=== PATIENT | female | born 1935 | race Two or more races ===

== ENCOUNTER 2016-07-05 23:14 | Inpatient (IN) | payer OTHER, MEDICAID ==
--- NOTE | 2016-07-06 00:08 | EDPHY ---
H & P Stated Complaint: L sided face pain HPI/ROS: HPI CHIEF COMPLAINT: Left-sided facial pain sharp stabbing nerve related, noted to be hypoxic at triage HISTORY OF PRESENT ILLNESS: This patient very pleasant 81-year-old female she has significant past medical history for hypertension, diabetes, TIA, pulmonary embolism, coronary artery disease per her daughter at bedside, and presents emergency room after she arrived from [place] today. Patient drove with her daughter from home are as [place] to [facility] arrived this evening she has been having left-sided facial pain for the past week sharp stabbing in nature it is worse when she eats specifically when she bites down she gets sharp electrical pain. She was seen at a hospital in [place] for this prior to arriving [facility] and was placed on calcitriol tabs. she was told that it is a nerve related electrical shooting pain. She states she has been having this pain for week her daughter who works here in housekeeping decided to bring her to the emergency room tonight for evaluation. Was noted at triage her pulse ox was 77% on room air. She has been placed on 2 L nasal cannula this time. She has had a cough and recent bronchitis. Patient is not having left- sided facial pain at this time. Past Medical History: Hypertension, diabetes, TIA, pulmonary embolism, coronary artery disease, questionable trigeminal neuralgia Past Surgical History: Denies recent surgical history Social History: Lives in [place] just arrived in [place] Family History: Noncontributory ROS REVIEW OF SYSTEMS: A comprehensive 10 point review of systems is otherwise negative aside from elements mentioned in the history of present illness. Exam Constitutional appears well nontoxic, triage nursing summary reviewed, vital signs reviewed, awake/alert. Eyes normal conjunctivae and sclera, EOMI, PERRLA. HENT normal inspection, atraumatic, moist mucus membranes, no epistaxis, neck supple/ no meningismus, no raccoon eyes. Respiratory clear to auscultation bilaterally, normal breath sounds, no respiratory distress, no wheezing. Cardiovascular rate normal, regular rhythm, no murmur, no edema, distal pulses normal. Gastrointestinal soft, non-tender, no rebound, no guarding, normal bowel sounds, no distension, no pulsatile mass. Genitourinary no CVA tenderness. Musculoskeletal no midline vertebral tenderness, full range of motion, no calf swelling, no tenderness of extremities, no meningismus, good pulses, neurovascularly intact. Skin pink, warm, & dry, no rash, skin atraumatic. Neurologic awake, alert and oriented x 3, AAOx3, moves all 4 extremities equally, motor intact, sensory intact, CN II-XII intact, normal cerebellar, normal vision, normal speech. Psychiatric normal mood/affect. Heme/Lymph/Immune no lymphadenopathy. Differential Diagnosis: Includes but is not limited to in a particular order, pneumonia, bronchitis, pulmonary embolism, heart failure, trigeminal neuralgia , TMJ Medical Decision Making: this time this patient not have any facial pain however noted to be hypoxic 77% on room air at triage. This is not the initial reason she came to the emergency room however we will need to evaluate this given profound hypoxia. She is resting comfortably at this time on 2 L nasal cannula. She does admit to recent bronchitis upper respiratory tract infection. Re-evaluation: EKG interpretation by me on record in [employer] system. Impression time of EKG 1:09 a.m., this is sinus rhythm rate of 76, nonspecific T-wave abnormality visualized in lead aVL, V5 V6 lateral leads. CT scan of the angiogram chest. The results of the study are negative for acute pulmonary embolism however there is cardiomegaly pulmonary edema concern for decompensated heart failure The study was read by Dr. Ocampo I viewed the images myself on the PACS system. CT scan of the head without IV contrast The results of the study are negative for acute intracranial abnormality The study was read by Dr. Ocampo. Iviewed the images myself on the PACS system. ED x-ray chest one view: This shows pulmonary edema cardiomegaly. 0247: re-evaluation at this time I have ordered this patient IV Lasix 40 mg she will be admitted to the hospitalist service I specifically spoke with Dr. Beasley. She agrees to admit this patient. I did update the family and the patient at bedside that she will need to be admitted for decompensated heart failure. It is noted that she had a pulse ox of 77% upon arrival she does not normally wear oxygen I cannot safely discharge her from the emergency room. She will require IV diuresis and close monitoring in a PCU bed. Patient agreeable for this so is daughter at bedside. As for her sharp stabbing pain in her face most likely trigeminal neuralgia the CT scan of her head did not show anything acute blood work has been reviewed does show hyperkalemia on her BMP I will repeat this as I am unsure if the K is actually truly this elevated. She has no QRS widening no peaked T-waves on her EKG. Source: Patient - Personal History Current Tetanus/Diphtheria Vaccine: Unsure Current Tetanus Diphtheria and Acellular Pertussis (TDAP): Unsure Tetanus Vaccine Date: not known - Medical/Surgical History Hx Asthma: No Hx Chronic Respiratory Disease: No Hx Diabetes: Yes Hx Cardiac Disease: No Hx Renal Disease: No Hx Cirrhosis: No Hx Alcoholism: No Hx HIV/AIDS: No Hx Splenectomy or Spleen Trauma: No Other PMH: HTN, diabetes, bronchitis - Social History Smoking Status: Never smoked Constitutional: Initial Vital Signs Temperature (C) 36.7 C 07/05/16 23:29 Heart Rate 81 07/05/16 23:29 Respiratory Rate 16 07/05/16 23:29 Blood Pressure 151/76 H 07/05/16 23:29 O2 Sat (%) 77 L 07/05/16 23:29 O2 Delivery Mode Nasal Cannula O2 (L/minute) 4 Allergies/Adverse Reactions: No Known Allergies Allergy (Unverified 07/05/16 23:26) Home Medications: Medication Instructions Recorded Celebrex 10/14/10 DIOVAN HCT 80-12.5 MG TABLET 10/14/10 Imdur 10/14/10 Metformin HCl 10/14/10 CALCITRIOL 07/05/16 Lasix 07/05/16 Losartan Potassium 07/05/16 traMADol 07/05/16 Medical Decision Making - Data Points Laboratory Results: Laboratory Results 07/06/16 00:50 07/06/16 00:50 07/06/16 07/06/16 07/06/16 00:50 00:50 00:50 WBC 8.06 10^3/uL 10^3/uL (3.80-9.50) RBC 4.21 10^6/uL 10^6/uL (4.18-5.33) Hgb 14.1 g/dL g/dL (12.6-16.3) Hct 42.4 % % (38.0-47.0) MCV 100.7 fL H fL (81.5-99.8) MCH 33.5 pg pg (27.9-34.1) MCHC 33.3 g/dL g/dL (32.4-36.7) RDW 14.4 % % (11.5-15.2) Plt Count 278 10^3/uL 10^3/uL (150-400) MPV 9.4 fL fL (8.7-11.7) Neut % (Auto) 67.0 % % (39.3-74.2) Lymph % (Auto) 17.5 % % (15.0-45.0) Ray % (Auto) 10.7 % % (4.5-13.0) Eos % (Auto) 3.0 % % (0.6-7.6) Baso % (Auto) 0.6 % % (0.3-1.7) Nucleat RBC Rel Count 0.0 % % (0.0-0.2) Absolute Neuts (auto) 5.40 10^3/uL 10^3/uL (1.70-6.50) Absolute Lymphs (auto) 1.41 10^3/uL 10^3/uL (1.00-3.00) Absolute Monos (auto) 0.86 10^3/uL H 10^3/uL (0.30-0.80) Absolute Eos (auto) 0.24 10^3/uL 10^3/uL (0.03-0.40) Absolute Basos (auto) 0.05 10^3/uL 10^3/uL (0.02-0.10) Absolute Nucleated RBC 0.00 10^3/uL 10^3/uL (0-0.01) Immature Gran % 1.2 % H % (0.0-1.1) Immature Gran # 0.10 10^3/uL 10^3/uL (0.00-0.10) PT 14.0 SEC SEC (12.0-15.0) INR 1.09 (0.83-1.16) APTT 27.3 SEC SEC (23.0-38.0) D-Dimer 2.27 ug/mLFEU H ug/mLFEU (0.00-0.50) Sodium 139 mEq/L mEq/L (134-144) Potassium 6.1 mEq/L H mEq/L (3.5-5.2) Chloride 107 mEq/L mEq/L (97-110) Carbon Dioxide 23 mEq/l mEq/l (22-31) Anion Gap 9 mEq/L mEq/L (8-16) BUN 41 mg/dL H mg/dL (7-23) Creatinine 1.3 mg/dL H mg/dL (0.6-1.0) Estimated GFR 39 Glucose 149 mg/dL H mg/dL (70-100) Calcium 9.3 mg/dL mg/dL (8.5-10.4) Magnesium 3.1 mg/dL H mg/dL (1.6-2.3) Total Bilirubin 0.6 mg/dL mg/dL (0.1-1.4) Conjugated Bilirubin 0.6 mg/dL H mg/dL (0.0-0.5) Unconjugated Bilirubin 0.0 mg/dL mg/dL (0.0-1.1) AST 36 IU/L IU/L (14-46) ALT 37 IU/L IU/L (9-52) Alkaline Phosphatase 82 IU/L IU/L (38-126) Creatine Kinase 33 IU/L IU/L (0-156) CK-MB (CK-2) Fraction 1.16 ng/mL ng/mL (0-3.19) Troponin I 0.027 ng/mL ng/mL (0-0.034) NT-Pro-B Natriuret Pep 2950 pg/mL H pg/mL (0-450) Total Protein 7.7 g/dL g/dL (6.3-8.2) Albumin 3.8 g/dL g/dL (3.5-5.0) Lipase 123.0 IU/L IU/L (23-300) Medications Given: Discontinued Medications Albuterol/Ipratropium (Duoneb) 3 ml IH EDNOW ONE Stop: 07/06/16 00:20 Last Admin: 07/06/16 00:50 Dose: 3 ml Sodium Chloride (Ns) 500 mls @ 0 mls/hr IV ONCE ONE PRN Reason: As Directed Stop: 07/06/16 00:19 Last Admin: 07/06/16 00:45 Dose: 200 mls Departure - Departure Disposition: [facility] In[facility] Acute Clinical Impression: Hypoxia Pulmonary edema Qualifiers: Chronicity: acute Qualified Code(s): J81.0 - Acute pulmonary edema Condition: Serious Referrals: [facility] [Other] - As per Instructions
[2016-07-06] MEDS ORDERED: NS 500 ML IV ONE (00:18)
[2016-07-06] MEDS ORDERED: IPRATROPIUM/ALBUTEROL 3 ML DEYVIAL IH ONE (00:19)
[2016-07-06 01:08] LABS: % IMMATURE GRANULYOCYTES 1.2 % (0.0-1.1); ADD DIFF? NO; ADD MORPH? NO; ADD SCAN? NO; ATYPICAL LYMPHOCYTE FLAG 10 (0-99); FRAGMENT RBC FLAG 0 (0-99); HEMATOCRIT 42.4 % (38.0-47.0); HEMOGLOBIN 14.1 g/dL (12.6-16.3); LEFT SHIFT FLG 10 (0-99); LIPEMIA HEMOLYSIS FLAG 80 (0-99); MEAN CELL HEMOGLOBIN 33.5 pg (27.9-34.1); MEAN CELL HEMOGLOBIN CONCENTR. 33.3 g/dL (32.4-36.7); MEAN CELL VOLUME 100.7 fL (81.5-99.8); MEAN PLATELET VOLUME 9.4 fL (8.7-11.7); PLATELET CLUMPS FLAG 10 (0-99); PLATELET COUNT 278 10^3/uL (150-400); RED BLOOD CELL COUNT 4.21 10^6/uL (4.18-5.33); RED CELL DISTRIBUTION WIDTH 14.4 % (11.5-15.2)
--- NOTE | 2016-07-06 01:12 | CPEKG ---
Heart Rate: 76 RR Interval: 789 P-R Interval: 192 QRSD Interval: 92 QT Interval: 400 QTC Interval: 450 P [place]: 44 QRS [place]: -26 T Wave [place]: 128 EKG Severity - ABNORMAL ECG - EKG Impression: SINUS RHYTHM EKG Impression: BORDERLINE LEFT AXIS DEVIATION EKG Impression: NONSPECIFIC T ABNORMALITIES, LATERAL LEADS Electronically Signed By: Ramana Ruiz 06-Jul-2016 06:30:15
[2016-07-06 01:16] LABS: APTT 27.3 SEC (23.0-38.0); INR 1.09 (0.83-1.16)
[2016-07-06 01:20] LABS: ALANINE AMINOTRANSFERASE 37 IU/L (9-52); ALBUMIN 3.8 g/dL (3.5-5.0); ALKALINE PHOSPHATASE 82 IU/L (38-126); ANION GAP 9 mEq/L (8-16); ASPARTATE AMINOTRANSFERASE 36 IU/L (14-46); BILIRUBIN,TOTAL 0.6 mg/dL (0.1-1.4); BILIRUBIN-CONJUGATED 0.6 mg/dL (0.0-0.5); CALCIUM 9.3 mg/dL (8.5-10.4); CARBON DIOXIDE 23 mEq/l (22-31); CHLORIDE 107 mEq/L (97-110); CREATININE 1.3 mg/dL (0.6-1.0); GLOMERULAR FILTRATION RATE 39; GLUCOSE 149 mg/dL (70-100); MAGNESIUM 3.1 mg/dL (1.6-2.3); POTASSIUM 6.1 mEq/L (3.5-5.2); SODIUM 139 mEq/L (134-144); TOTAL PROTEIN 7.7 g/dL (6.3-8.2)
[2016-07-06 01:32] LABS: CREATINE KINASE-MB FRACTION 1.16 ng/mL (0-3.19); TROPONIN I 0.027 ng/mL (0-0.034)
[2016-07-06] MEDS ORDERED: IOPAMIDOL (ISOVUE 370) 100 ML BTL IV ONE (01:34)
[2016-07-06] MEDS ORDERED: FUROSEMIDE 40 MG/4 ML VIAL IVP ONE ×2 (02:35→15:46)
[2016-07-06] MEDS ORDERED: ONDANSETRON DISINTEGRATING 4 MG TAB PO PRN (03:13)
[2016-07-06 03:31] LABS: ANION GAP 10 mEq/L (8-16); CALCIUM 8.9 mg/dL (8.5-10.4); CARBON DIOXIDE 23 mEq/l (22-31); CHLORIDE 106 mEq/L (97-110); CREATININE 1.3 mg/dL (0.6-1.0); GLOMERULAR FILTRATION RATE 39; GLUCOSE 129 mg/dL (70-100); POTASSIUM 5.8 mEq/L (3.5-5.2); SODIUM 139 mEq/L (134-144)
--- NOTE | 2016-07-06 03:38 | PDGENHP ---
History and Physical - Chief Complaint facial pain - History of Present Illness Patient is an 81/F with history of CAD, HTN, HLD, DM2, morbid obesity, diastolic CHF and previous history of PE (2010, not currently on AC) who presents to the ED with complaint of R facial pain. Patient was visiting family in [place] when about 5 days ago she started having intense, shooting/electrical type pain across her R facial. She states this would last seconds and resolve, but was continuously occurring since it's onset. Pain seems to be provoked by use of her facial muscles (chewing, talking), so she has not been eating much over the past 3-4 days due to fear of provoking the pain. She was prescribed lyrica by a [facility] physician for her symptoms, but hasn't felt much improvement. She and her family drove back to [place] today and came to the ED for further evaluation of her pain. In addition, for the past 8 days or so patient has been having increased dyspnea and dry cough. She denies any fever, chills, chest pain, palpitations, nausea, vomiting or diarrhea or urinary symptoms. On arrival to the ED, patient was hemodynamically stable, but noted to be significantly hypoxic (70% on room air). She was placed on O2 via NC with significant improvement in O2 sats. CXR revealed effusion vs infiltrate. CT chest was then obtained, was negative for acute pulmonary embolism, but did show mild pulmonary edema and R pleural effusion. She was given IV lasix and admitted to the hospitalist service for further management. History Information - Allergies/Home Medication List Allergies/Adverse Reactions: No Known Allergies Allergy (Unverified 07/05/16 23:26) Home Medications: Celebrex 10/14/10 [Last Taken Unknown] DIOVAN HCT 80-12.5 MG TABLET 10/14/10 [Last Taken Unknown] Imdur 10/14/10 [Last Taken Unknown] Metformin HCl 10/14/10 [Last Taken Unknown] CALCITRIOL 07/05/16 [Last Taken Unknown] Lasix 07/05/16 [Last Taken Unknown] Losartan Potassium 07/05/16 [Last Taken Unknown] traMADol 07/05/16 [Last Taken Unknown] I have personally reviewed and updated: family history, medical history, social history, surgical history - Past Medical History Additional medical history: CAD s/p OK but no PCI. diastolic CHF (per 2011 TTE) . hypertension. DM2 on oral meds. osteoarthritis. GERD. h/o Pulmonary embolism (2011) - Surgical History Reports: cholecystectomy - Family History Positive for: non-pertinent - Social History Smoking Status: Never smoked Alcohol Use: None Drug Use: None Additional social history: Patient lives with her daughters in [place]. Originally from [place], visits frequently. She is wheelchair-bound. Review of Systems ROS: 10pt was reviewed & negative except for what was stated in HPI & below Physical Exam Temp Pulse Resp BP Pulse Ox 36.7 C 75 22 H 120/62 93 07/05/16 23:29 07/06/16 02:30 07/06/16 02:30 07/06/16 02:30 07/06/16 02:30 Constitutional: no apparent distress, appears nourished, not in pain, obese Eyes: PERRL, anicteric sclera, EOMI Ears, Nose, Mouth, Throat: hearing normal, ears appear normal, no oral mucosal ulcers, oral thrush, dry mucous membranes Cardiovascular: regular rate and rhythym, no murmur, rub, or gallop, pulses symmetric bilaterally, No JVD, No edema Peripheral Pulses: 2+: dorsalis-pedis (R), dorsalis-pedis (L) Respiratory: no respiratory distress, no rales or rhonchi, inspiratory crackles Gastrointestinal: normoactive bowel sounds, soft, non-tender abdomen, no palpable masses, No guarding, No rebound, No distension Genitourinary: no bladder fullness, no bladder tenderness Skin: warm, normal color, no rashes or abrasions, no fluctuance, No mottled Musculoskeletal: full muscle strength, no muscle tenderness, normal joint ROM, no joint effusions Neurologic: AAOx3, sensation intact bilaterally, CN II-XII Intact, other ( strength 5/5 in all extremities), No weakness, No numbness, No pronator drift, No facial droop Psychiatric: interacting appropriately, not anxious, not encephalopathic, thought process linear Lab Data & Imaging Review 07/06/16 00:50 07/06/16 03:13 WBC 8.06 10^3/uL (3.80-9.50) 07/06/16 00:50 RBC 4.21 10^6/uL (4.18-5.33) 07/06/16 00:50 Hgb 14.1 g/dL (12.6-16.3) 07/06/16 00:50 Hct 42.4 % (38.0-47.0) 07/06/16 00:50 MCV 100.7 fL (81.5-99.8) H 07/06/16 00:50 MCH 33.5 pg (27.9-34.1) 07/06/16 00:50 MCHC 33.3 g/dL (32.4-36.7) 07/06/16 00:50 RDW 14.4 % (11.5-15.2) 07/06/16 00:50 Plt Count 278 10^3/uL (150-400) 07/06/16 00:50 MPV 9.4 fL (8.7-11.7) 07/06/16 00:50 Neut % (Auto) 67.0 % (39.3-74.2) 07/06/16 00:50 Lymph % (Auto) 17.5 % (15.0-45.0) 07/06/16 00:50 [place] % (Auto) 10.7 % (4.5-13.0) 07/06/16 00:50 Eos % (Auto) 3.0 % (0.6-7.6) 07/06/16 00:50 Baso % (Auto) 0.6 % (0.3-1.7) 07/06/16 00:50 Nucleat RBC Rel Count 0.0 % (0.0-0.2) 07/06/16 00:50 Absolute Neuts (auto) 5.40 10^3/uL (1.70-6.50) 07/06/16 00:50 Absolute Lymphs (auto) 1.41 10^3/uL (1.00-3.00) 07/06/16 00:50 Absolute Monos (auto) 0.86 10^3/uL (0.30-0.80) H 07/06/16 00:50 Absolute Eos (auto) 0.24 10^3/uL (0.03-0.40) 07/06/16 00:50 Absolute Basos (auto) 0.05 10^3/uL (0.02-0.10) 07/06/16 00:50 Absolute Nucleated RBC 0.00 10^3/uL (0-0.01) 07/06/16 00:50 Immature Gran % 1.2 % (0.0-1.1) H 07/06/16 00:50 Immature Gran # 0.10 10^3/uL (0.00-0.10) 07/06/16 00:50 PT 14.0 SEC (12.0-15.0) 07/06/16 00:50 INR 1.09 (0.83-1.16) 07/06/16 00:50 APTT 27.3 SEC (23.0-38.0) 07/06/16 00:50 D-Dimer 2.27 ug/mLFEU (0.00-0.50) H 07/06/16 00:50 Sodium 139 mEq/L (134-144) 07/06/16 03:13 Potassium 5.8 mEq/L (3.5-5.2) H 07/06/16 03:13 Chloride 106 mEq/L (97-110) 07/06/16 03:13 Carbon Dioxide 23 mEq/l (22-31) 07/06/16 03:13 Anion Gap 10 mEq/L (8-16) 07/06/16 03:13 BUN 39 mg/dL (7-23) H 07/06/16 03:13 Creatinine 1.3 mg/dL (0.6-1.0) H 07/06/16 03:13 Estimated GFR 39 07/06/16 03:13 Glucose 129 mg/dL (70-100) H 07/06/16 03:13 Calcium 8.9 mg/dL (8.5-10.4) 07/06/16 03:13 Magnesium 3.1 mg/dL (1.6-2.3) H 07/06/16 00:50 Total Bilirubin 0.6 mg/dL (0.1-1.4) 07/06/16 00:50 Conjugated Bilirubin 0.6 mg/dL (0.0-0.5) H 07/06/16 00:50 Unconjugated Bilirubin 0.0 mg/dL (0.0-1.1) 07/06/16 00:50 AST 36 IU/L (14-46) 07/06/16 00:50 ALT 37 IU/L (9-52) 07/06/16 00:50 Alkaline Phosphatase 82 IU/L (38-126) 07/06/16 00:50 Creatine Kinase 33 IU/L (0-156) 07/06/16 00:50 CK-MB (CK-2) Fraction 1.16 ng/mL (0-3.19) 07/06/16 00:50 Troponin I 0.027 ng/mL (0-0.034) 07/06/16 00:50 NT-Pro-B Natriuret Pep 2950 pg/mL (0-450) H 07/06/16 00:50 Total Protein 7.7 g/dL (6.3-8.2) 07/06/16 00:50 Albumin 3.8 g/dL (3.5-5.0) 07/06/16 00:50 Lipase 123.0 IU/L (23-300) 07/06/16 00:50 Visualized and Interpreted Chest x-ray results: Yes Chest X-Ray results: effusion (bilateral effusion vs infiltrate) Visualized and Interpreted imaging results: Yes Interpretation: CT angio chest: no acute pulmonary embolism; pulmonary edema with minimal R pleural effusion Visualized and Interpreted EKG results: Yes EKG Interpretation: Positive for: normal sinsus rhythm (with T wave flattening in V3-V6) Assessment & Plan Assessment: Patient is an 81/F with history of diastolic CHF, CAD, HTN, HLD, DM2, obesity who presents to the ED with complaint of R facial electrical-type pain. On arrival to the ED, patient was found to be significantly hypoxic, with CT chest revealing mild-moderate pulmonary edema. Plan: # acute hypoxic respiratory failure Etiology of hypoxia appears to be fluid overload due to acute on chronic diastolic chf exacerbation. PE has been excluded with CT chest, and there is also no evidence of infiltrate/pneumonia and flu swab is negative. Patient also denies history of COPD, but suspect component of obesity hypoventilation syndrome is also contributing to hypoxia. Patient currently satting in high 80- low90s on 5L NC. Will check ABG and if grossly abnormal, or if any worsening of hypoxia will given trial of BIPAP. # acute on chronic congestive heart failure dysfunction Last TTE in [facility] was in 2010 and showed normal EF with diastolic dysfunction. Presents today with pulmonary edema consistent with acute chf. Will repeat TTE to assess for progression of cardiomyopathy. Regarding diuresis , patient has not been maintaining adequate PO intake recently due to R facial pain. This, along with recent IV contrast load for CT and elevated creatinine on labs will require gentle diuresis in attempt to avoid renal injury. She was given Lasix 40 IV. Will assess response and dose lasix as needed. Will trend troponins to rule out acs as cause of decompensation. WIll also confirm and continue home meds. # R facial pain Patient's description of shooting electrical pain appears to be consistent with trigeminal neuralgia, although it has started acutely 5 days ago. Pain is not associated with drooping, dysarthria or drooling. Differential also include temporal arteritis, atypical migraine headache, cva/tias. WIll check ESR, obtain neurology consult and attempt to control pain. Outpatient lyrica trial has not helped symptoms thus far. # CAD Patient currently denies any chest pain associated with her symptoms. EKG shows sinus rhythm with lateral twave flattening. Initial troponin is negative. Will cont to trend troponins, monitor serial EKGs and continue home meds. # hypertension BP stable on presentation. WIll hold patient's ARB in setting of acute hyperkalemia. # hyperkalemia K elevation confirmed on repeat BMP. No evidence of EKG changes. Will treat with insulin/d50 and Kayexalate and continue to trend. # DM2 Will hold outpatient metformin and place on sliding scale coverage. # dispo: admit to inpatient service for likely > 2 [place] stay # gen; cardiac/diabetic diet DVT ppx: lovenox Full code
[2016-07-06] MEDS ORDERED: D50W 25 GM/50 ML SYR IVP PRN (03:47)
[2016-07-06] MEDS ORDERED: SODIUM BICARBONATE 50 MEQ/50 ML SYR IVP ONE (03:55)
[2016-07-06] MEDS ORDERED: CALCIUM GLUCONATE 2 GM in D5W 50 ML IV ONE ×2 (03:55→06:30)
[2016-07-06 04:18] LABS: BASE EXCESS -2.6 mEq/L (-2.5-2.5); BICARBONATE 23 mEq/L (22-26); MEASURED OXYGEN SATURATION 88 % (92-95); PCO2 43 mmHg (34-38); PO2 60 mmHg (65-75); TCO2 24 mEq/L (23-27)
[2016-07-06] MEDS ORDERED: INSULIN REGULAR HUMAN 100 UNIT/ML IVP ONE (05:43)
[2016-07-06] MEDS ORDERED: D50W 25 GM/50 ML SYR IVP ONE (05:43)
[2016-07-06 06:04] LABS: COLOR PALE YELLOW; LEUKOCYTE ESTERASE,URINE NEGATIVE (NEGATIVE); NITRITE,URINE NEGATIVE (NEGATIVE)
[2016-07-06 06:05] LABS: MUCUS TRACE /lpf (NONE-1+)
[2016-07-06] MEDS ORDERED: NA BICARBONATE 50 MEQ/50 ML VIAL IV ONE (06:30)
[2016-07-06 07:27] LABS: % IMMATURE GRANULYOCYTES 1.1 % (0.0-1.1); ABSOLUTE IMMATURE GRANULOCYTES 0.09 10^3/uL (0.00-0.10); ADD DIFF? NO; ADD MORPH? NO; ADD SCAN? NO; ATYPICAL LYMPHOCYTE FLAG 20 (0-99); FRAGMENT RBC FLAG 0 (0-99); HEMATOCRIT 40.3 % (38.0-47.0); HEMOGLOBIN 13.3 g/dL (12.6-16.3); LEFT SHIFT FLG 10 (0-99); LIPEMIA HEMOLYSIS FLAG 80 (0-99); MEAN PLATELET VOLUME 9.1 fL (8.7-11.7); PLATELET CLUMPS FLAG 0 (0-99); PLATELET COUNT 262 10^3/uL (150-400); RED BLOOD CELL COUNT 4.03 10^6/uL (4.18-5.33); RED CELL DISTRIBUTION WIDTH 14.1 % (11.5-15.2)
[2016-07-06 07:41] LABS: INR 1.13 (0.83-1.16); PROTIME(PATIENT) 14.4 SEC (12.0-15.0)
[2016-07-06 07:44] LABS: SEDIMENTATION RATE 29 MM/HR (0-30)
[2016-07-06 07:48] LABS: MAGNESIUM 2.9 mg/dL (1.6-2.3)
--- NOTE | 2016-07-06 08:43 | GCON ---
[f rep st] CONSULTATION NEUROLOGIC CONSULTATION REFERRING PHYSICIAN: Teresa Beasley MD HISTORY: The patient is an 81-year-old woman who speaks Kinyarw[place] only, and I am asked to see her in neurologic consultation regarding left facial pain. This started about 6 days ago. She says that she started having the symptoms while she was in [place], and they told her that it was some kind of inflammation. Fairly recently she had had a significant infection in her gums but said that had resolved and still has developed this episodic pain which comes in waves of very intense pain that can spread from the face toward the left side of the head. They describe a little bit of trembling of the right eye or eyelid sometimes as well. She finds that chewing and swallowing, and even touch to the left face can be a trigger for acute pain. It will then stop but then recur intermittently. It has not been associated with any definite weakness. The family says that she has had a little bit of swelling of her tongue since being in [place] and starting on medication though I am not sure exactly what she received. She has not had any symptoms in the extremities. She also has hypoxia and suspected congestive heart failure. PAST MEDICAL HISTORY: Notable for hypertension. She has never had this specific problem before. There is a history of coronary disease, type 2 diabetes, osteoarthritis, reflux, history of pulmonary embolism. FAMILY HISTORY: Noncontributory. She is a nonsmoker. No alcohol. She lives with her daughters in [place]. ALLERGIES: No change in mental state. PHYSICAL EXAMINATION: VITAL SIGNS: Blood pressure 139/78, pulse of 89, respirations 22, temperature 36.6. GENERAL: She is well developed, but overweight in no acute distress. HEENT: Eyes are clear. Pupils are 3 mm and reactive. Extraocular movements are intact and no definite facial weakness. Facial sensation is preserved for temperature. She does not currently have left facial allodynia. While I was sitting there, she did have some episodes of acute pain in the left face that would last a few seconds at a time and then improve. Her tongue seems to be a little bit swollen. Palate elevates symmetrically, and the tongue protrudes midline. NEUROLOGIC: The motor exam reveals normal muscle, bulk, and tone with 5/5 strength. No sensory loss in the extremities. IMAGING: She had a head CT which shows no acute pathology. IMPRESSION: The patient is experiencing symptoms of acute left trigeminal neuralgia evolving over 5 or 6 days. A trigger may have been the experience of a dental infection prior to this, but I do not think she has an acute infection right now. I am not sure why she has some of the edema of her tongue, but that would not be directly related to this. The patient had received some treatment with Lyrica that was not providing any relief. The best treatment is likely to be carbamazepine or baclofen. So, I will start her on some carbamazepine today and put her on a BID schedule to see if we can rapidly improve the pain. I explained to them that the time before control of symptoms and total duration of symptoms is difficult to predict, but she is likely to improve fairly quickly once we get her on the right medication. I would defer on any additional imaging at this stage but will continue to monitor her progress. Total unit time today 50 minutes. /[id number]/MODL MTDD
[2016-07-06] MEDS: ENOXAPARIN 40 MG/0.4 ML SYR SC SCH (09:03)
[2016-07-06] MEDS: INSULIN LISPRO 100 UNIT/ML SC SCH ×3 (09:03→21:42)
[2016-07-06] MEDS: carBAMazepine 200 MG/10 ML UDCUP PO SCH ×2 (09:03→21:42)
[2016-07-06] MEDS ORDERED: SODIUM POLY SULF 15 GM/60 ML BOTTLE PO ONE (09:32)
--- NOTE | 2016-07-06 11:45 | ECHO ---
[id number] + + [address] : : [place] [address] : : [phone] + + Adult Echocardiographic Report + + :Name: DANIELA GRISSOMEBIAStudy Date: 07/06/2016 09:50 AM : : Hospital Admission Number: [id number] Location: 202: :: 1935 Gender: Female Height: 61 in : :Age: 81 yrs Race: ,OT Weight: 242 lb : :Reason For Study: Eval LV Fx : : BSA: 2.0 meters2 : :History: Pulmonary Edema, CHF : + + MMode/2D Measurements \T\ Calculations IVSd: 1.3 cm LVIDd: 6.0 cm FS: 25.5 % Ao root diam: LVPWd: 1.3 cm LVIDs: 4.5 cm EDV(Teich): 3.1 cm 180.7 ml ACS: 1.7 cm ESV(Teich): 91.3 ml EF(Teich): 49.5 % LVLd ap4: 8.3 cm SV(MOD-sp4): EDV(MOD-sp4): 36.0 ml 118.0 ml LVLs ap4: 8.1 cm ESV(MOD-sp4): 82.0 ml EF(MOD-sp4): 30.5 % Normal Measurement Values: + + :LVIDd (3.5-5.7cm) IVSd (0.6-1.1cm) LVPWd (0.6-1.1cm) Aortic Root (2.0-3.7cm)Left Atrium (1.5-4.0cm): :LV Vol(d) (76-115ml) LV Vol(s) (29-48ml) Ejec Fraction (50-65%)PV Mo (0.6- 1.2m/s) TV Mo (0.4-1.0m/s) : :MV E Mo (0.8-1.0m/s)MV A Mo (0.3-1.0m/s)LVOT Mo (0.7-1.2m/s) Asc Ao Mo ( 0.9-1.8m/s) : + + Doppler Measurements \T\ Calculations MV E max mo: AI max mo: LV V1 max: MR max mo: 96.7 cm/sec 387.6 cm/sec 63.2 cm/sec 467.8 cm/sec MV A max mo: AI max P.1 mmHgLV V1 max PG: MR max P.9 cm/sec AI dec slope: 1.6 mmHg 87.5 mmHg MV E/A: 0.77 137.6 cm/sec2 AI P1/2t: 824.8 msec PA V2 max: 99.1 cm/sec PA max P.9 mmHg Left Ventricle The left ventricle is normal in size. There is normal left ventricular wall thickness. Ejection Fraction = 30%. There is apical hypokinesis. 2D and MMode may have overestimated left venticular function. Right Ventricle The right ventricle is normal size. Atria The left atrial size is normal. Right atrial size is normal. Mitral Valve There is mild mitral annular calcification. There is no mitral valve stenosis. There is mild mitral regurgitation. Tricuspid Valve Normal tricuspid valve. There is trace tricuspid regurgitation. Aortic Valve The aortic valve is normal in structure and function. There is no aortic stenosis. Mild aortic regurgitation. Pulmonic Valve The pulmonic valve is normal in structure and function. There is no pulmonic valvular regurgitation. Great Vessels The aortic root is normal size. Pericardium/Pleural There is no pericardial effusion. Conclusion A complete two-dimensional transthoracic echocardiogram was performed (2D, M-mode, Doppler and color flow Doppler). Compared to prior study, there is no significant change. echo in 2011 had similar rwma noted. Ejection Fraction = 30%. There is apical hypokinesis. 2D and MMode may have overestimated left venticular function. The right ventricle is normal size. The left atrial size is normal. There is mild mitral annular calcification. There is mild mitral regurgitation. Normal tricuspid valve There is trace tricuspid regurgitation. The aortic valve is normal in structure and function. Mild aortic regurgitation. There is no pericardial effusion. Compared to prior study, there is no significant change. echo in 2010 had similar rwma noted Final Reading Physician: Harish Green signed on 07/06/2016 11:44 AM Ordering Physician: Teresa Beasley Performed By: Huseyin Sorto, KARENCS
[2016-07-06 13:24] LABS: ANION GAP 11 mEq/L (8-16); CALCIUM 9.5 mg/dL (8.5-10.4); CARBON DIOXIDE 26 mEq/l (22-31); CHLORIDE 105 mEq/L (97-110); CREATININE 1.2 mg/dL (0.6-1.0); GLOMERULAR FILTRATION RATE 43; GLUCOSE 109 mg/dL (70-100); POTASSIUM 5.2 mEq/L (3.5-5.2); SODIUM 142 mEq/L (134-144)
[2016-07-06] MEDS ORDERED: NON-FORMULARY NEW DRUG (Ranitidine Hcl [Zantac] 150 MG) PO PRN (15:44)
[2016-07-06] MEDS ORDERED: FAMOTIDINE 20 MG TAB PO PRN (15:48)
--- NOTE | 2016-07-06 15:59 | HOSPPROG ---
Hospitalist Progress Note Assessment/Plan: # acute hypoxic resp failure d/t pulm edema # acute on chronic CHF exacerbation - EF 30% - will d/w cards regarding change in EF vs previous echo - lasix 40 iv again today - cont cozaar - not on BB # trigeminal neuralgia - Tegretol started # CAD - on asa # DM2 - ssi Objective: Vital Signs Temp Pulse Resp BP Pulse Ox 37.2 C 80 20 137/66 H 91 L 07/06/16 15:43 07/06/16 15:43 07/06/16 15:43 07/06/16 15:43 07/06/16 15:43 Laboratory Results 07/06/16 07:15 07/06/16 12:38 07/05/16 07/06/16 07/07/16 05:59 05:59 05:59 Intake Total 200 400 Output Total 100 Balance 100 400 PT 14.4 SEC (12.0-15.0) 07/06/16 07:15 INR 1.13 (0.83-1.16) 07/06/16 07:15 ICD10 Worksheet Patient Problems: Problems Problem Status Onset Hypoxia Acute Pulmonary edema Acute
[2016-07-06] MEDS ORDERED: [UNRECOGNIZED DRUG - OTHER] PO SCH (21:00)
[2016-07-06] MEDS: LOSARTAN POTASSIUM 50 MG TAB PO SCH (21:42)
[2016-07-06] MEDS: [UNRECOGNIZED DRUG - OTHER] PO SCH (23:10)
[2016-07-07 08:28] LABS: ANION GAP 10 mEq/L (8-16); CALCIUM 8.6 mg/dL (8.5-10.4); CARBON DIOXIDE 26 mEq/l (22-31); CHLORIDE 105 mEq/L (97-110); CREATININE 1.1 mg/dL (0.6-1.0); GLOMERULAR FILTRATION RATE 48; GLUCOSE 126 mg/dL (70-100); POTASSIUM 4.7 mEq/L (3.5-5.2); SODIUM 141 mEq/L (134-144)
[2016-07-07] MEDS: carBAMazepine 200 MG/10 ML UDCUP PO SCH ×2 (08:53→22:08)
[2016-07-07] MEDS: ENOXAPARIN 40 MG/0.4 ML SYR SC SCH (08:53)
[2016-07-07] MEDS: LOSARTAN POTASSIUM 50 MG TAB PO SCH (08:54)
[2016-07-07] MEDS: INSULIN LISPRO 100 UNIT/ML SC SCH ×3 (08:54→16:56)
[2016-07-07] MEDS: ASPIRIN 81 MG CHEWABLE TAB PO SCH (08:54)
[2016-07-07] MEDS: CALCITRIOL 0.25 MCG CAP PO SCH (08:54)
[2016-07-07] MEDS: [UNRECOGNIZED DRUG - OTHER] PO SCH ×2 (09:47→22:18)
[2016-07-07] MEDS: FUROSEMIDE 40 MG/4 ML VIAL IVP SCH ×2 (12:13→15:54)
--- NOTE | 2016-07-07 12:21 | HOSPPROG ---
Hospitalist Progress Note Assessment/Plan: # acute hypoxic resp failure d/t pulm edema # acute on chronic CHF exacerbation - EF 30% - per Dr blackman, no change in EF from 2010 - lasix 40 iv bid - cont cozaar (reduce dose) and start low dose coreg # trigeminal neuralgia - Tegretol started - better # thrush - nystatin # CAD - on asa, start BB, check lipids # DM2 - ssi ## chart reviewed CXR personally reviewed tele personally reviewed - benign Subjective: facial pain better; tongue pain; still SOB Objective: Vital Signs Temp Pulse Resp BP Pulse Ox 36.6 C 73 19 110/58 L 95 07/07/16 12:00 07/07/16 12:00 07/07/16 12:00 07/07/16 12:00 07/07/16 12:00 Laboratory Results 07/06/16 07:15 07/07/16 07:30 07/06/16 07/07/16 07/08/16 05:59 05:59 05:59 Intake Total 200 1080 Output Total 100 700 Balance 100 380 PT 14.4 SEC (12.0-15.0) 07/06/16 07:15 INR 1.13 (0.83-1.16) 07/06/16 07:15 - Physical Exam Constitutional: no apparent distress, other (lying in bed) Ears, Nose, Mouth, Throat: other (thrush) Cardiovascular: regular rate and rhythym, no murmur, rub, or gallop Respiratory: no respiratory distress, no rales or rhonchi, reduced air movement (bilat bases) Gastrointestinal: normoactive bowel sounds, soft, non-tender abdomen, no palpable masses ICD10 Worksheet Patient Problems: Problems Problem Status Onset Chronic Disease [facility]/Transitional Care Acute Hypoxia Acute Pulmonary edema Acute
[2016-07-07] MEDS: NYSTATIN SUSP 500000 UNIT/5 ML UDCUP PO SCH ×2 (15:52→22:07)
[2016-07-07] MEDS: CARVEDILOL 3.125 MG TAB PO SCH (17:20)
[2016-07-07] MEDS ORDERED: SODIUM CL NASAL 45 ML BTL EACHNARE PRN (20:30)
[2016-07-07] MEDS: CANN-EASE 2 GM TUBE TP PRN (22:08)
[2016-07-07] MEDS: ACETAMINOPHEN 325 MG TAB PO PRN (22:14)
[2016-07-08 05:04] LABS: % IMMATURE GRANULYOCYTES 0.6 % (0.0-1.1); ABSOLUTE IMMATURE GRANULOCYTES 0.04 10^3/uL (0.00-0.10); ADD DIFF? NO; ADD MORPH? NO; ADD SCAN? NO; ATYPICAL LYMPHOCYTE FLAG 10 (0-99); FRAGMENT RBC FLAG 0 (0-99); HEMATOCRIT 37.8 % (38.0-47.0); HEMOGLOBIN 11.9 g/dL (12.6-16.3); LEFT SHIFT FLG 0 (0-99); LIPEMIA HEMOLYSIS FLAG 80 (0-99); MEAN CELL HEMOGLOBIN 32.2 pg (27.9-34.1); MEAN CELL HEMOGLOBIN CONCENTR. 31.5 g/dL (32.4-36.7); MEAN CELL VOLUME 102.4 fL (81.5-99.8); MEAN PLATELET VOLUME 9.5 fL (8.7-11.7); PLATELET CLUMPS FLAG 0 (0-99); PLATELET COUNT 228 10^3/uL (150-400); RED BLOOD CELL COUNT 3.69 10^6/uL (4.18-5.33)
[2016-07-08 05:41] LABS: ANION GAP 9 mEq/L (8-16); CALCIUM 8.1 mg/dL (8.5-10.4); CARBON DIOXIDE 27 mEq/l (22-31); CHLORIDE 104 mEq/L (97-110); CHOLESTEROL 151 mg/dL (140-220); CHOLESTEROL/HDL RATIO 5.03 RATIO (1.00-4.44); CREATININE 1.2 mg/dL (0.6-1.0); GLOMERULAR FILTRATION RATE 43; GLUCOSE 138 mg/dL (70-100); HIGH DENSITY LIPOPROTEIN 30 mg/dL (40-85); LDL/HDL RATIO 2.13 RATIO (1.00-3.22); LOW DENSITY LIPOPROTEIN 64 mg/dL (80-100); NON-HIGH DENSITY LIPOPROTEIN 121 mg/dL (90-129); POTASSIUM 4.5 mEq/L (3.5-5.2); SODIUM 140 mEq/L (134-144); TRIGLYCERIDE 289 mg/dL (35-135); VERY LOW DENSITY LIPOPROTEINS 57 mg/dL (8-25)
[2016-07-08] MEDS: NYSTATIN SUSP 500000 UNIT/5 ML UDCUP PO SCH ×4 (06:28→20:57)
[2016-07-08] MEDS: guaiFENesin 200 MG/10 ML UDCUP PO PRN ×2 (06:28→20:57)
[2016-07-08] MEDS: ENOXAPARIN 40 MG/0.4 ML SYR SC SCH (08:29)
[2016-07-08] MEDS: INSULIN LISPRO 100 UNIT/ML SC SCH ×3 (08:29→17:14)
[2016-07-08] MEDS: FUROSEMIDE 40 MG/4 ML VIAL IVP SCH ×2 (08:29→14:45)
[2016-07-08] MEDS: ASPIRIN 81 MG CHEWABLE TAB PO SCH (08:30)
[2016-07-08] MEDS: carBAMazepine 200 MG/10 ML UDCUP PO SCH ×2 (08:30→20:57)
[2016-07-08] MEDS: CARVEDILOL 3.125 MG TAB PO SCH ×2 (08:30→17:14)
[2016-07-08] MEDS: CALCITRIOL 0.25 MCG CAP PO SCH (08:30)
[2016-07-08] MEDS: LOSARTAN POTASSIUM 50 MG TAB PO SCH (08:30)
[2016-07-08] MEDS: [UNRECOGNIZED DRUG - OTHER] PO SCH ×2 (08:38→21:07)
--- NOTE | 2016-07-08 12:35 | HOSPPROG ---
Hospitalist Progress Note Assessment/Plan: # acute hypoxic resp failure d/t pulm edema # acute on chronic CHF exacerbation - EF 30% - per Dr blackman, no change in EF from 2010 - lasix 40 iv bid - cont cozaar (reduce dose) and start low dose coreg # trigeminal neuralgia - Tegretol started - better # thrush - nystatin, start fluconazole # CAD - on asa, BB, LDL < 70 # DM2 - ssi ## CXR personally reviewed - infiltrates improved tele personally reviewed - benign Subjective: c/o tongue swelling; mild L sided facial pain; breathing feels ok Objective: Vital Signs Temp Pulse Resp BP Pulse Ox 36.9 C 78 22 H 122/70 H 98 07/08/16 11:26 07/08/16 11:26 07/08/16 11:26 07/08/16 11:26 07/08/16 11:26 Laboratory Results 07/08/16 03:53 07/08/16 03:53 07/07/16 07/08/16 07/09/16 05:59 05:59 05:59 Intake Total 1080 650 Output Total 700 500 Balance 380 150 PT 14.4 SEC (12.0-15.0) 07/06/16 07:15 INR 1.13 (0.83-1.16) 07/06/16 07:15 - Physical Exam Constitutional: no apparent distress, appears nourished Cardiovascular: regular rate and rhythym, no murmur, rub, or gallop Respiratory: no respiratory distress, inspiratory crackles (bilat bases), No expiratory wheeze, No rhonchi Gastrointestinal: normoactive bowel sounds, soft, non-tender abdomen, no palpable masses ICD10 Worksheet Patient Problems: Problems Problem Status Onset Chronic Disease [facility]/Transitional Care Acute Hypoxia Acute Pulmonary edema Acute
[2016-07-08] MEDS: FLUCONAZOLE 100 MG TAB PO SCH (13:04)
[2016-07-08] MEDS: ACETAMINOPHEN 325 MG TAB PO PRN (20:57)
[2016-07-08] MEDS: ONDANSETRON 4 MG/2 ML VIAL IVP PRN (21:28)
[2016-07-08] MEDS ORDERED: hydrALAZINE 20 MG/ML VIAL ONE (21:39)
[2016-07-08 21:59] LABS: % IMMATURE GRANULYOCYTES 0.7 % (0.0-1.1); ABSOLUTE IMMATURE GRANULOCYTES 0.06 10^3/uL (0.00-0.10); ADD DIFF? NO; ADD MORPH? NO; ADD SCAN? NO; ATYPICAL LYMPHOCYTE FLAG 10 (0-99); FRAGMENT RBC FLAG 0 (0-99); HEMATOCRIT 41.5 % (38.0-47.0); HEMOGLOBIN 13.7 g/dL (12.6-16.3); LEFT SHIFT FLG 0 (0-99); LIPEMIA HEMOLYSIS FLAG 80 (0-99); MEAN CELL HEMOGLOBIN 32.7 pg (27.9-34.1); MEAN PLATELET VOLUME 9.5 fL (8.7-11.7); PLATELET CLUMPS FLAG 0 (0-99); PLATELET COUNT 240 10^3/uL (150-400); RED BLOOD CELL COUNT 4.19 10^6/uL (4.18-5.33); RED CELL DISTRIBUTION WIDTH 14.1 % (11.5-15.2)
[2016-07-08] MEDS ORDERED: hydrALAZINE 20 MG/ML VIAL IVP ONE (22:00)
--- NOTE | 2016-07-08 22:08 | HOSPPROG ---
Hospitalist Progress Note Assessment/Plan: called to see patient for altered mental status, low-grade fever elevated blood pressure. patient is not complaining of any pain. She is able to answer questions. Strength is equal bilaterally. Lungs clear plan: given hydralazine with good response of blood pressure And improvement of confusion. Will check UA, chest x-ray, blood cultures and labs. 31 minutes of critical care time spent with this patient Objective: Vital Signs Temp Pulse Resp BP Pulse Ox 37.5 C 96 18 164/88 H 94 07/08/16 21:50 07/08/16 21:50 07/08/16 21:50 07/08/16 21:47 07/08/16 21:50 07/07/16 07/08/16 07/09/16 05:59 05:59 05:59 Intake Total 7061 677 0573 Output Total 700 500 Balance 216 775 9959 PT 14.4 SEC (12.0-15.0) 07/06/16 07:15 INR 1.13 (0.83-1.16) 07/06/16 07:15 ICD10 Worksheet Patient Problems: Problems Problem Status Onset Chronic Disease Mgmt/Transitional Care Acute Hypoxia Acute Pulmonary edema Acute
[2016-07-08 22:22] LABS: ALANINE AMINOTRANSFERASE 36 IU/L (9-52); ALKALINE PHOSPHATASE 101 IU/L (38-126); ANION GAP 14 mEq/L (8-16); ASPARTATE AMINOTRANSFERASE 34 IU/L (14-46); BILIRUBIN,TOTAL 0.5 mg/dL (0.1-1.4); CALCIUM 8.8 mg/dL (8.5-10.4); CARBON DIOXIDE 28 mEq/l (22-31); CHLORIDE 95 mEq/L (97-110); GLOMERULAR FILTRATION RATE 53; GLUCOSE 222 mg/dL (70-100); POTASSIUM 4.6 mEq/L (3.5-5.2); SODIUM 137 mEq/L (134-144); TOTAL PROTEIN 8.1 g/dL (6.3-8.2)
[2016-07-08 22:44] LABS: COLOR YELLOW; LEUKOCYTE ESTERASE,URINE NEGATIVE (NEGATIVE); NITRITE,URINE NEGATIVE (NEGATIVE)
[2016-07-08 22:51] LABS: BACTERIA TRACE /hpf (NONE SEEN); MUCUS TRACE /lpf (NONE-1+); RBC,URINE 50-182 /hpf (0-3)
--- NOTE | 2016-07-08 22:51 | CPEKG ---
Heart Rate: 94 RR Interval: 638 P-R Interval: 204 QRSD Interval: 94 QT Interval: 356 QTC Interval: 446 P [place]: 51 QRS [place]: -15 T Wave [place]: 99 EKG Severity - ABNORMAL ECG - EKG Impression: SINUS RHYTHM EKG Impression: BORDERLINE LEFT AXIS DEVIATION EKG Impression: NONSPECIFIC T ABNORMALITIES, LATERAL LEADS EKG Impression: Poor R-wave regression. Consider old anterior myocardial infarction. EKG Impression: No significant change from July 06, 2016 Electronically Signed By: Anthony Mann 09-Jul-2016 12:19:19
[2016-07-09] MEDS: guaiFENesin 200 MG/10 ML UDCUP PO PRN (01:23)
[2016-07-09 04:46] LABS: ANION GAP 8 mEq/L (8-16); CALCIUM 8.4 mg/dL (8.5-10.4); CARBON DIOXIDE 27 mEq/l (22-31); CHLORIDE 100 mEq/L (97-110); CREATININE 1.1 mg/dL (0.6-1.0); GLOMERULAR FILTRATION RATE 48; GLUCOSE 161 mg/dL (70-100); POTASSIUM 4.8 mEq/L (3.5-5.2); SODIUM 135 mEq/L (134-144)
[2016-07-09 07:47] LABS: % IMMATURE GRANULYOCYTES 0.6 % (0.0-1.1); ABSOLUTE IMMATURE GRANULOCYTES 0.04 10^3/uL (0.00-0.10); ADD DIFF? NO; ADD MORPH? NO; ADD SCAN? NO; ATYPICAL LYMPHOCYTE FLAG 0 (0-99); FRAGMENT RBC FLAG 0 (0-99); HEMATOCRIT 37.2 % (38.0-47.0); HEMOGLOBIN 12.3 g/dL (12.6-16.3); LEFT SHIFT FLG 0 (0-99); LIPEMIA HEMOLYSIS FLAG 80 (0-99); MEAN CELL HEMOGLOBIN 32.3 pg (27.9-34.1); MEAN CELL HEMOGLOBIN CONCENTR. 33.1 g/dL (32.4-36.7); MEAN CELL VOLUME 97.6 fL (81.5-99.8); MEAN PLATELET VOLUME 9.3 fL (8.7-11.7); PLATELET CLUMPS FLAG 20 (0-99); PLATELET COUNT 210 10^3/uL (150-400); RED BLOOD CELL COUNT 3.81 10^6/uL (4.18-5.33); RED CELL DISTRIBUTION WIDTH 14.1 % (11.5-15.2)
[2016-07-09] MEDS: ACETAMINOPHEN 325 MG TAB PO PRN ×2 (08:01→18:29)
[2016-07-09] MEDS: LOSARTAN POTASSIUM 50 MG TAB PO SCH (08:04)
[2016-07-09] MEDS: CARVEDILOL 3.125 MG TAB PO SCH (08:04)
[2016-07-09] MEDS: ASPIRIN 81 MG CHEWABLE TAB PO SCH (08:04)
[2016-07-09] MEDS: FLUCONAZOLE 100 MG TAB PO SCH (08:04)
[2016-07-09] MEDS: CALCITRIOL 0.25 MCG CAP PO SCH (08:04)
[2016-07-09] MEDS: carBAMazepine 200 MG/10 ML UDCUP PO SCH ×3 (08:10→21:35)
[2016-07-09] MEDS: FUROSEMIDE 40 MG/4 ML VIAL IVP SCH (08:12)
[2016-07-09] MEDS: ENOXAPARIN 40 MG/0.4 ML SYR SC SCH (08:15)
[2016-07-09] MEDS: INSULIN LISPRO 100 UNIT/ML SC SCH ×3 (08:22→18:13)
[2016-07-09] MEDS: NYSTATIN SUSP 500000 UNIT/5 ML UDCUP PO SCH ×4 (08:23→21:31)
[2016-07-09] MEDS: [UNRECOGNIZED DRUG - OTHER] PO SCH ×2 (08:24→21:36)
[2016-07-09] MEDS: PIPERACILLIN/TAZO 3.375 GM/DEX 50 ML IV SCH ×3 (09:40→23:55)
[2016-07-09] MEDS: VANCOMYCIN HCL/NORMAL SALINE 250 ML IV SCH (10:14)
[2016-07-09] MEDS ORDERED: NS 500 ML IV ONE ×3 (10:51→22:38)
[2016-07-09 11:21] LABS: BASE EXCESS 5.3 mEq/L (-2.5-2.5); BICARBONATE 32 mEq/L (22-26); MEASURED OXYGEN SATURATION 85 % (92-95); PCO2 61 mmHg (34-38); PO2 55 mmHg (65-75); TCO2 34 mEq/L (23-27)
[2016-07-09] MEDS ORDERED: PIPERACILLIN/TAZO 3.375 GM/DEX 50 ML IV SCH (12:00)
[2016-07-09] MEDS ORDERED: ALTEPLASE 2 MG VIAL IVP PRN (13:27)
--- NOTE | 2016-07-09 14:12 | NEUROPROG ---
Assessment: At this point, infection seems like the problem, but we don't know if there is a primary of secondary neurologic diagnosis at this point. I reviewed the head CT and the features are subtle. I am not even seeing pathology yet, but MRI with help to clarify this and determine what else may need to be done. Dr. Fontaine will be following up tomorrow. Subjective: Pt seen last week for trigeminal neuralgia and was controlled with carbamazepine , but she has had some fever and altered mentation in the last 24hrs with exact cause unclear. She is on CPAP now due to decreased O2 and may have pneumonia developing. Radiology says can't rule out a cerebellar process in the right hemisphere. Objective: Vital Signs Temp Pulse Resp BP Pulse Ox 37.2 C 58 L 17 99/47 L 99 07/09/16 12:17 07/09/16 13:39 07/09/16 13:39 07/09/16 13:39 07/09/16 13:39 Laboratory Results 07/09/16 07:36 07/09/16 03:26 07/08/16 07/09/16 07/10/16 05:59 05:59 05:59 Intake Total 650 1160 1500 Output Total 500 500 Balance 423 478 7453 PT 14.4 SEC (12.0-15.0) 07/06/16 07:15 INR 1.13 (0.83-1.16) 07/06/16 07:15 Intubated and lethargic.; Allergies/Adverse Reactions: No Known Allergies Allergy (Unverified 07/05/16 23:26)
--- NOTE | 2016-07-09 14:36 | HOSPPROG ---
Hospitalist Progress Note Assessment/Plan: 81F, admitted for CHF exacerbation. Mental status much worse today, has fever, increased O2 demands. Also abnormal finding on CTH in cerebellum. # fever - possibly d/t asp pna; also has abnormal cerebellar finding - empiric abx # acute encephalopathy - unclear etiology # cerebellar finding - need MRI # hypotension - has responded to cautious IVF - place PICC today # acute hypoxic resp failure with worsening hypercapnia today - higher O2 demands today - trial of bipap # acute on chronic CHF exacerbation - EF 30% - per Dr blackman, no change in EF from 2010 - cont cozaar (reduce dose) and start low dose coreg # trigeminal neuralgia - Tegretol started - better # thrush - nystatin, start fluconazole - still significant # CAD - on asa, BB, LDL < 70 # DM2 - ssi ## 45 minutes of critical care time with acute encephalopathy, fever, hypotension Subjective: stat team last night for htn/fever/obtundation; much less alert and somnolent today than yesterday Objective: Vital Signs Temp Pulse Resp BP Pulse Ox 37.2 C 67 15 110/66 100 07/09/16 12:17 07/09/16 14:24 07/09/16 14:24 07/09/16 14:24 07/09/16 14:24 Laboratory Results 07/09/16 07:36 07/09/16 03:26 07/08/16 07/09/16 07/10/16 05:59 05:59 05:59 Intake Total 650 1160 1500 Output Total 500 500 Balance 564 333 5144 PT 14.4 SEC (12.0-15.0) 07/06/16 07:15 INR 1.13 (0.83-1.16) 07/06/16 07:15 - Physical Exam Constitutional: other (somnolent) Cardiovascular: regular rate and rhythym, no murmur, rub, or gallop Respiratory: no respiratory distress, no rales or rhonchi, clear to auscultation Gastrointestinal: normoactive bowel sounds, soft, non-tender abdomen, no palpable masses ICD10 Worksheet Patient Problems: Problems Problem Status Onset Chronic Disease Mgmt/Transitional Care Acute Hypoxia Acute Pulmonary edema Acute
[2016-07-09] MEDS ORDERED: GADOBUTROL 10 ML VIAL IVP ONE (16:34)
--- NOTE | 2016-07-09 17:59 | GCON ---
[f rep st] CONSULTATION PULMONARY/CRITICAL CARE CONSULTATION DATE OF CONSULTATION: 07/09/2016 REFERRING PHYSICIAN: Nilton Puri MD REASON FOR REFERRAL: Evaluation and management of hypoxemic and hypercapnic respiratory failure. HISTORY: The patient is an 81-year-old woman with a history of morbid obesity, systolic and diastol ic congestive heart failure, and coronary artery disease, who was admitted to the hospital 3 days ag o with right facial pain. It is felt to be due to trigeminal neuralgia. She also had hypoxemia, wi th mean oxygen saturation of 77% that improved to the 90s with supplemental oxygen at 2 to 4 L/minut e. An arterial blood gas on admission showed an elevated CO2 of 43 and oxygen level just 60 on 4 L of oxygen with a pH of 7.34. She has been placed on Lasix to attempt either to diurese, although he r I's and O's have actually been slightly positive during the hospitalization. She was transferred to the ICU today due to worsening mental status as well as an isolated temperature of 38.4. She als o had hypotension, with a systolic blood pressure in the 80s. Since being transferred, she has been given fluids due to positive fluid challenge response on a NICOM monitor. She has also been less r esponsive. She currently is not reliably answering questions, but did deny pain upon limited questi oning. PAST MEDICAL HISTORY: 1. Hypertension. 2. Coronary artery disease. 3. Type 2 diabetes. 4. History of pulmonary embolism. 5. Osteoarthritis. 6. Reflux. MEDICATIONS: At the time of admission include losartan, ranitidine, furosemide, aspirin, metformin, Lyrica, Vytorin. ALLERGIES: None. SOCIAL HISTORY: She does not smoke or drink. She lives here with family. FAMILY HISTORY: Noncontributory. REVIEW OF SYSTEMS: Unobtainable. PHYSICAL EXAMINATION: GENERAL: The patient is somnolent and arouses, but is unable to reliably and consistently answer questions. VITAL SIGNS: Blood pressure is 120/62 with a pulse of 75. Her res piratory rate 22. Her oxygen saturations are 93% on 4 L. HEENT: Normocephalic and atraumatic. Sh e has some thrush. NECK: No adenopathy. Trachea is midline. CHEST: Rales in both bases. CARDIA C: Regular rate and rhythm without murmur. ABDOMEN: Soft, nontender. Bowel sounds are present. EXTREMITIES: No clubbing, cyanosis, or edema. NEUROLOGIC: The patient is somnolent, but arousable . She is able to weakly move all extremities symmetrically. LABORATORY: Creatinine is 1.1, down from 1.3 at the time of admission. Glucose is 124. BNP was 24 30 yesterday. INR is 1.1. Hemoglobin is 12.3, white blood count of 6.9. Urinalysis shows red bloo d cells with minimal white blood cells. An arterial blood gas shows a pH of 7.34 with a pO2 of 55, a CO2 of 61, and a bicarbonate of 34 on supplemental oxygen. Lactate is 0.9. A chest x-ray dated 0 07/08 shows cardiomegaly and vascular congestion with pulmonary edema and Juno B lines consistent w ith congestive heart failure. Images reviewed. A CT scan of the chest shows pulmonary vascular con gestion and some mild interstitial edema in the bases. An echocardiogram shows an ejection fraction of 30% which is apparently unchanged from 1 in 2010, with similar regional wall motion abnormalitie s. There is a trace tricuspid regurgitation. ASSESSMENT: 1. Hypercapnic and hypoxemic respiratory failure. I suspect the patient may have a component of un derlying obesity hypoventilation that contributes to her elevated CO2. This is worsened a bit with diuresis, but she continues to have acidemic pH which suggests there is still an underlying componen t of hypercapnia. In addition, congestive heart failure/pulmonary edema are likely significant caus e of her hypoxemia. Obesity and altitude or probably contributing as well. She is at high risk for having obstructive and possibly central sleep apnea. Given the fever and hypotension, there was a concern for infection as well, although a negative lactate are used against the presence of severe s epsis. 2. Trigeminal neuralgia. The patient is currently not having symptoms. RECOMMENDATIONS: 1. Agree with fluid challenges for hypotension. 2. BiPAP to try to help improve her CO2 retention and oxygenation. 3. Start diuresis, if tolerated once blood pressure has been stabilized, assuming her renal functio n. 4. Consider Cardiology consult, although apparently the echocardiograms are not changed. She will likely need outpatient congestive heart failure management. 5. Once her current illness has resolved, she may benefit from a sleep study to assess for the pres ence of sleep apnea. /[id number]/MODL
--- NOTE | 2016-07-09 19:58 | NEUROPROG ---
Assessment: At this point, infection seems like the problem, but we don't know if there is a primary of secondary neurologic diagnosis at this point. I reviewed the head CT and the features are subtle. I am not even seeing pathology yet, but MRI with help to clarify this and determine what else may need to be done. Dr. Fontaine will be following up tomorrow. 07/09/16: Follow up not from earlier today. MRI shows no stroke. I don't know why she has had the decline, but may well be pulmonary related. Please call Dr. Fontaine tomorrow if you have any neurologic questions, as it does not appear to be a primary neurologic issue at this time. Objective: Vital Signs Temp Pulse Resp BP Pulse Ox 38 C 64 20 112/45 L 100 07/09/16 18:00 07/09/16 18:00 07/09/16 18:00 07/09/16 18:00 07/09/16 18:00 Laboratory Results 07/09/16 07:36 07/09/16 03:26 07/08/16 07/09/16 07/10/16 05:59 05:59 05:59 Intake Total 650 1160 2250 Output Total 500 500 32 Balance 999 301 9111 PT 14.4 SEC (12.0-15.0) 07/06/16 07:15 INR 1.13 (0.83-1.16) 07/06/16 07:15 Allergies/Adverse Reactions: No Known Allergies Allergy (Unverified 07/05/16 23:26)
[2016-07-09] MEDS ORDERED: NS 1,000 ML IV SCH (22:45)
--- NOTE | 2016-07-09 23:11 | HOSPPROG ---
Hospitalist Progress Note Assessment/Plan: blood Culture + GPC in clusters - Staph - pt already on Vancomycin IV Objective: Vital Signs Temp Pulse Resp BP Pulse Ox 38.0 C 57 L 20 99/42 L 98 07/09/16 22:00 07/09/16 22:00 07/09/16 22:00 07/09/16 22:00 07/09/16 22:00 Laboratory Results 07/09/16 07:36 07/09/16 03:26 07/08/16 07/09/16 07/10/16 05:59 05:59 05:59 Intake Total 650 1160 2250 Output Total 500 500 32 Balance 470 153 2233 PT 14.4 SEC (12.0-15.0) 07/06/16 07:15 INR 1.13 (0.83-1.16) 07/06/16 07:15 ICD10 Worksheet Patient Problems: Problems Problem Status Onset Chronic Disease Mgmt/Transitional Care Acute Hypoxia Acute Pulmonary edema Acute
[2016-07-09] MEDS ORDERED: ACETAMINOPHEN 650 MG/20.3 ML UDCUP ONE (23:29)
[2016-07-09] MEDS: ACETAMINOPHEN 650 MG/20.3 ML UDCUP PO PRN (23:30)
[2016-07-10] MEDS ORDERED: NOREPINEPHRINE/NS 500 ML IV SCH (01:00)
[2016-07-10] MEDS ORDERED: VASOPRESSIN/DEXTROSE 250 ML IV SCH (01:00)
[2016-07-10 04:31] LABS: % IMMATURE GRANULYOCYTES 0.4 % (0.0-1.1); ABSOLUTE IMMATURE GRANULOCYTES 0.02 10^3/uL (0.00-0.10); ADD DIFF? NO; ADD MORPH? NO; ADD SCAN? NO; ATYPICAL LYMPHOCYTE FLAG 20 (0-99); FRAGMENT RBC FLAG 0 (0-99); HEMATOCRIT 36.7 % (38.0-47.0); HEMOGLOBIN 11.6 g/dL (12.6-16.3); LEFT SHIFT FLG 0 (0-99); LIPEMIA HEMOLYSIS FLAG 80 (0-99); MEAN CELL HEMOGLOBIN 32.8 pg (27.9-34.1); MEAN CELL HEMOGLOBIN CONCENTR. 31.6 g/dL (32.4-36.7); MEAN CELL VOLUME 103.7 fL (81.5-99.8); MEAN PLATELET VOLUME 9.9 fL (8.7-11.7); PLATELET CLUMPS FLAG 20 (0-99); PLATELET COUNT 177 10^3/uL (150-400); RED BLOOD CELL COUNT 3.54 10^6/uL (4.18-5.33); RED CELL DISTRIBUTION WIDTH 14.4 % (11.5-15.2)
[2016-07-10 04:51] LABS: ALANINE AMINOTRANSFERASE 38 IU/L (9-52); ALBUMIN 3.2 g/dL (3.5-5.0); ALKALINE PHOSPHATASE 68 IU/L (38-126); ANION GAP 9 mEq/L (8-16); ASPARTATE AMINOTRANSFERASE 46 IU/L (14-46); BILIRUBIN,TOTAL 0.7 mg/dL (0.1-1.4); CALCIUM 7.7 mg/dL (8.5-10.4); CARBON DIOXIDE 26 mEq/l (22-31); CHLORIDE 107 mEq/L (97-110); CREATININE 1.3 mg/dL (0.6-1.0); GLOMERULAR FILTRATION RATE 39; GLUCOSE 162 mg/dL (70-100); POTASSIUM 4.7 mEq/L (3.5-5.2); SODIUM 142 mEq/L (134-144); TOTAL PROTEIN 6.2 g/dL (6.3-8.2)
[2016-07-10 05:02] LABS: TROPONIN I 0.044 ng/mL (0-0.034)
[2016-07-10] MEDS: PIPERACILLIN/TAZO 3.375 GM/DEX 50 ML IV SCH (05:26)
[2016-07-10] MEDS: NYSTATIN SUSP 500000 UNIT/5 ML UDCUP PO SCH ×4 (05:28→20:53)
[2016-07-10] MEDS: FLUCONAZOLE 100 MG TAB PO SCH (09:13)
[2016-07-10] MEDS: INSULIN LISPRO 100 UNIT/ML SC SCH ×3 (09:13→18:24)
[2016-07-10] MEDS: ASPIRIN 81 MG CHEWABLE TAB PO SCH (09:13)
[2016-07-10] MEDS: VANCOMYCIN HCL/NORMAL SALINE 250 ML IV SCH (09:13)
[2016-07-10] MEDS: carBAMazepine 200 MG/10 ML UDCUP PO SCH ×2 (09:13→20:53)
[2016-07-10] MEDS: CALCITRIOL 0.25 MCG CAP PO SCH (09:13)
[2016-07-10] MEDS: ENOXAPARIN 40 MG/0.4 ML SYR SC SCH (09:14)
[2016-07-10] MEDS: [UNRECOGNIZED DRUG - OTHER] PO SCH ×2 (09:15→21:46)
[2016-07-10] MEDS: PIPERACILLIN/TAZO 2.25 GM/DEX 50 ML IV SCH ×2 (11:49→18:23)
--- NOTE | 2016-07-10 12:58 | HOSPPROG ---
Hospitalist Progress Note Assessment/Plan: # sepsis - had transient pressor requirement - cont empiric abx (vanc/zosyn) - will taper soon based on culture data # acute encephalopathy - better today, d/t sepsis # EMPLOYMENT INTERVIEWER bacteremia - suspect this is a true pathogen - cont vanc # acute hypoxic resp failure with worsening hypercapnia today - higher O2 demands today - trial of bipap # acute on chronic CHF exacerbation - EF 30% - per Dr Napoles, no change in EF from 2010 - holding coreg currently # trigeminal neuralgia - Tegretol started - better # thrush vs lichen planus? - has not responded to anti-fungals # CAD - on asa, BB, LDL < 70 # DM2 - ssi ## high risk Subjective: doing better today - less somnolent Objective: Vital Signs Temp Pulse Resp BP Pulse Ox 37.3 C 77 24 H 140/69 H 93 07/10/16 12:00 07/10/16 12:00 07/10/16 12:00 07/10/16 12:00 07/10/16 12:00 Microbiology 07/08/16 21:35 Blood Panel (PCR) - Final Blood Staph Coagulase Negative Laboratory Results 07/10/16 04:15 07/10/16 04:15 07/09/16 07/10/16 07/11/16 05:59 05:59 05:59 Intake Total 1160 3368.3 Output Total 500 682 400 Balance 660 2686.3 -400 PT 14.4 SEC (12.0-15.0) 07/06/16 07:15 INR 1.13 (0.83-1.16) 07/06/16 07:15 - Physical Exam Constitutional: no apparent distress, appears nourished Cardiovascular: regular rate and rhythym, no murmur, rub, or gallop Respiratory: no respiratory distress, inspiratory crackles (bilat bases), No expiratory wheeze, No bronchial breath sounds ICD10 Worksheet Patient Problems: Problems Problem Status Onset Chronic Disease Mgmt/Transitional Care Acute Hypoxia Acute Pulmonary edema Acute
--- NOTE | 2016-07-10 15:02 | PDINTPN ---
Assistant Reading Teacher Progress Note Assessment/Plan: Assessment: Acute respiratory failure: Hypoxemic as well as hypercarbic. Improving. Presumed pneumonia, with by basilar infiltrate/atelectasis. On Zosyn and vancomycin with significant improvement today in both respiratory status and mental status. Pneumonia : Community-acquired, possibly aspiration, versus CPAP. Improving on the current antibiotics Coag-negative staph bacteremia. Unclear as to the source. A pulmonary source seems less likely. Infectious Disease to see. Congestive heart failure / diastolic dysfunction. Became hypotensive with diuresis. given fluids. Stable at this point and clinically improved, with a chest x-ray consistent with pneumonia and/or congestive failure. Abnormal mental status. Resolved. MRI negative. Appreciate neurologic consultation. Obesity History of multiple medical problems including hypertension, type 2 diabetes, distant pulmonary embolic disease, and reflux. Plan: Continue antibiotics. Encourage coughing, deep breathing, bronchopulmonary care. Increase mobilization as tolerated. Continue care in the intensive care unit today. If she continues to improve then possibly she can be transferred to a medical-surgical bed tomorrow. Follow chest x-ray and laboratory. Await Infectious Disease consultation. 35 minutes of critical care time spent directly with the patient today. Discussed with the patient's daughter via an consulting property manager, respiratory, nursing, hospitalist, and the ICU multi disciplinary team. Subjective: Doing well. Up in the chair. Denies pain or shortness of breath. Objective: Vital Signs Temp Pulse Resp BP Pulse Ox 37.3 C 76 22 H 125/54 H 94 07/10/16 12:00 07/10/16 14:00 07/10/16 14:00 07/10/16 14:00 07/10/16 14:00 Microbiology 07/08/16 21:35 Blood Panel (PCR) - Final Blood Staph Coagulase Negative Laboratory Results 07/10/16 04:15 07/10/16 04:15 07/09/16 07/10/16 07/11/16 05:59 05:59 05:59 Intake Total 1160 3368.3 Output Total 500 682 400 Balance 660 2686.3 -400 PT 14.4 SEC (12.0-15.0) 07/06/16 07:15 INR 1.13 (0.83-1.16) 07/06/16 07:15 Laboratory Tests 07/09/16 07/09/16 07/10/16 11:00 18:00 04:15 pCO2 61 H pO2 55 L ABG pH 7.34 L ABG Lactic Acid 0.6 D Calcium 7.7 L Total Bilirubin 0.7 AST 46 ALT 38 Troponin I 0.044 H Total Protein 6.2 L D Albumin 3.2 L CXR: By basilar infiltrates/effusions/consolidation. Central line in good position. Physical Exam - Physical Exam General Appearance: alert, no apparent distress EENT: other ( On oxygen by mask at 6 L) Neck: normal inspection ( relatively large neck) Respiratory: lungs clear ( anteriorly), decreased breath sounds ( at bases with some fine rales), No rhonchi, No wheezing Cardiac/Chest: regular rate, rhythm ( distant heart tones) Abdomen: non-tender, soft ( overweight), No normal bowel sounds ( decreased, present) Pelvic Exam: other ( Buckley catheter in place, input greater than output) Skin: normal color, warm/dry Extremities: No pedal edema Neuro/Psych: no motor/sensory deficits ( moves all extremities weakly, uses walker), No cognition abnormalities ICD10 Worksheet Patient Problems: Problems Problem Status Onset Chronic Disease Mgmt/Transitional Care Acute Hypoxia Acute Pulmonary edema Acute
[2016-07-10] MEDS: ACETAMINOPHEN 650 MG/20.3 ML UDCUP PO PRN (18:43)
[2016-07-10] MEDS: ONDANSETRON 4 MG/2 ML VIAL IVP PRN (18:50)
--- NOTE | 2016-07-10 19:27 | GCON ---
[f rep st] CONSULTATION INPATIENT INFECTIOUS DISEASE CONSULTATION REFERRING PHYSICIAN: Nilton Puri MD REASON FOR CONSULTATION: Fever, possible bacteremia. HISTORY OF PRESENT ILLNESS: The patient is an 81-year-old female who was admitted through [facility] on 07/06/2016. The patient presented with facial pain on the right s lisy which was determined to be trigeminal neuralgia. In the course of her evaluation, she was noted to be significantly hypoxic, and was saturating 70% on room air. Chest x-ray showed an effusion ve rsus an infiltrate. CT of her chest was obtained which ruled out a pulmonary embolus. However, it did show mild pulmonary edema. She has known underlying congestive heart failure and was admitted f or exacerbation and management thereof. She did well with diuresis, but began having fever in the m orning of 07/09/2016. The patient's temperature max was 38.4. She had blood cultures drawn on 04/2016 and these are now growing one out of two sets of coagulase-negative Staphylococcus. The emiliano ent was begun on 07/09/2016 with both vancomycin and Zosyn. Currently, she is resting in her hospit al bed. She is in no acute distress. Her family is at bedside. They state she appears close to nicole zuleta. We are consulted to help determine cause of fever and appropriate treatment. PAST MEDICAL HISTORY: 1. Congestive heart failure. 2. Coronary artery disease status post myocardial infarction. 3. Hypertension. 4. Diabetes mellitus type 2. 5. Osteoarthritis. 6. Gastroesophageal reflux disease. 7. Pulmonary embolism in 2010. PAST SURGICAL HISTORY: Status post cholecystectomy. ANTIBIOTICS: 1. Vancomycin. 2. Zosyn. ALLERGIES: The patient has no known drug allergies. SOCIAL HISTORY: The patient has very good family support. No history of tobacco use. No alcohol u se. No drug use. She lives with her daughters. She is originally from [place]. She is wheelchair bound. REVIEW OF SYSTEMS: Apart from that detailed above in History of Present Illness, a comprehensive 10 -system review is negative. PHYSICAL EXAMINATION: VITAL SIGNS: Temperature maximum is 38.1, temperature current is 37.5, heart rate is 84, respiratory rate is 24, blood pressure is 120/61. GENERAL: The patient is a well form ed, overweight, elderly female, in no acute distress. She is not toxic in appearance. She is alert and oriented x3. She is very pleasant in demeanor. HEENT: Normocephalic for age. Atraumatic. N o scleral icterus. No oral lesion. No drainage from the nares. Of note, the patient does have a s ignificantly thick tongue carpet, but no intraoral lesions on the buccal mucosa or palate. NECK: S upple. No meningismus. LUNGS: Clear to auscultation in the upper lobes, progressively more crackl es in the lower lobes with deep inspiration. Decreased breath sounds in the bases bilaterally. Goo d effort. HEART: Regular rate and rhythm. No murmur, rub, or gallop noted. No significant periph eral edema. ABDOMEN: Soft, distended, nontender, no masses. SKIN: Warm and dry to the touch. No rash or lesion noted. MUSCULOSKELETAL: No muscular tenderness is noted. No joint large effusion or arthritis is seen. NEURO: Cranial nerves II through XII seem to be intact. Peripheral sensatio n seems intact in extremities. LABORATORY DATA: Patient has a CBC dated 07/10/2016. It shows a white blood cell count of 5.2, hem oglobin of 11.6, hematocrit of 36.7, and a platelet count of 177, differential is within normal limi ts. Serum chemistries on 07/10/2016 are all within normal limits apart from an elevated BUN of 36 a nd a creatinine of 1.3. The patient has a respiratory viral PCR panel significant for coronavirus O C43. ASSESSMENT: Fever of unclear etiology. I think that the patient by symptoms has a respiratory infe ction. I think that there is extra plumpness in some of the infiltrate or vascularity seen, especia lly in the right lower lobe with a chest x-ray. Respiratory viral panel PCR showing coronavirus jefferson t is consistent with common cold. I suspect this is the cause of her respiratory symptoms, as well as her intermittent fevers. I would at this point discontinue the vancomycin, and if patient is con tinuing to clinically improve, also discontinue the Zosyn tomorrow. The one out of two sets positiv e on blood cultures are unlikely to be the cause. These would be regarded as a contaminant unless b oth sets grow. PLAN: 1. Discontinue vancomycin. 2. Continue Zosyn monotherapy for 1 more day to get an idea of patient improvement. If patient is continuing to improve, would discontinue Zosyn shortly. /[id number]/MODL
[2016-07-10] MEDS: ACETAMINOPHEN 325 MG TAB PO PRN (20:52)
[2016-07-11] MEDS: PIPERACILLIN/TAZO 2.25 GM/DEX 50 ML IV SCH ×2 (00:10→05:48)
[2016-07-11] MEDS: NYSTATIN SUSP 500000 UNIT/5 ML UDCUP PO SCH ×4 (05:49→20:13)
[2016-07-11 06:19] LABS: % IMMATURE GRANULYOCYTES 0.3 % (0.0-1.1); ABSOLUTE IMMATURE GRANULOCYTES 0.02 10^3/uL (0.00-0.10); ADD DIFF? NO; ADD MORPH? NO; ADD SCAN? NO; ATYPICAL LYMPHOCYTE FLAG 30 (0-99); FRAGMENT RBC FLAG 0 (0-99); HEMATOCRIT 37.3 % (38.0-47.0); HEMOGLOBIN 11.8 g/dL (12.6-16.3); LEFT SHIFT FLG 0 (0-99); LIPEMIA HEMOLYSIS FLAG 80 (0-99); MEAN CELL HEMOGLOBIN 32.6 pg (27.9-34.1); MEAN CELL HEMOGLOBIN CONCENTR. 31.6 g/dL (32.4-36.7); PLATELET CLUMPS FLAG 0 (0-99); PLATELET COUNT 170 10^3/uL (150-400); RED BLOOD CELL COUNT 3.62 10^6/uL (4.18-5.33); RED CELL DISTRIBUTION WIDTH 14.1 % (11.5-15.2)
[2016-07-11 06:28] LABS: ALANINE AMINOTRANSFERASE 39 IU/L (9-52); ALBUMIN 3.1 g/dL (3.5-5.0); ALKALINE PHOSPHATASE 68 IU/L (38-126); ANION GAP 9 mEq/L (8-16); ASPARTATE AMINOTRANSFERASE 37 IU/L (14-46); BILIRUBIN,TOTAL 0.5 mg/dL (0.1-1.4); CARBON DIOXIDE 25 mEq/l (22-31); CHLORIDE 106 mEq/L (97-110); CREATININE 1.1 mg/dL (0.6-1.0); GLOMERULAR FILTRATION RATE 48; GLUCOSE 153 mg/dL (70-100); POTASSIUM 4.4 mEq/L (3.5-5.2); SODIUM 140 mEq/L (134-144); TOTAL PROTEIN 6.6 g/dL (6.3-8.2)
[2016-07-11] MEDS: carBAMazepine 200 MG/10 ML UDCUP PO SCH ×2 (08:44→20:13)
[2016-07-11] MEDS: ENOXAPARIN 30 MG/0.3 ML SYR SC SCH (08:44)
[2016-07-11] MEDS: INSULIN LISPRO 100 UNIT/ML SC SCH ×3 (08:44→17:52)
[2016-07-11] MEDS: ASPIRIN 81 MG CHEWABLE TAB PO SCH (08:44)
[2016-07-11] MEDS: CALCITRIOL 0.25 MCG CAP PO SCH (08:44)
[2016-07-11] MEDS: [UNRECOGNIZED DRUG - OTHER] PO SCH ×2 (08:45→20:15)
--- NOTE | 2016-07-11 10:49 | PCMIDPN ---
Assessment/Plan: #Fever and hypoxia, possible LLL PNA: Resp PCR + coronavirus. CXR LLL infiltrate , but nl wbc. Also likely volume overload from diastolic heart failure and IAN. Still fairly hypoxia with 7 to 8L O2. Just was in [place] for couple months, has pet birds. No risk factors for MDRs --plan to complete 5 days total therapy with ceftriaxone/azithromycin for CAP to also include coverage psittacosis --dc zosyn --droplet precautions for coronavirus #Blood cx 1/2 CoNS c/w contaminant history and exam obtained with assistance of director of community center Medications Zosyn, # 2 Subjective: Patient reports less coughing today, very fatigued today because did not sleep last night. No diarrhea Objective: Vital Signs Temp Pulse Resp BP Pulse Ox 36.6 C 75 23 H 141/73 H 92 07/11/16 07:52 07/11/16 07:52 07/11/16 07:52 07/11/16 07:52 07/11/16 07:52 Microbiology 07/08/16 21:35 Blood Panel (PCR) - Final Blood Staph Coagulase Negative Laboratory Results 07/11/16 05:55 07/11/16 05:55 07/10/16 07/11/16 07/12/16 05:59 05:59 05:59 Intake Total 3368.3 2397 Output Total 682 400 Balance 2686.3 1996 ESR 29 MM/HR (0-30) 07/06/16 07:15 - Physical Exam General Appearance: alert, no apparent distress, cachetic EENT: dry mucous membranes, poor dentition, other (White coating of tongue, not consistent with thrush) Respiratory: other (Poor air movement overall), No accessory muscle use, No crackles Neck: supple Cardiac/Chest: regular rate, rhythm Extremities: No pedal edema Abdomen: normal bowel sounds, non-tender, soft Skin: No rash Neuro/Psych: alert, normal mood/affect, oriented x 3 - Time Spent With Patient Time Spent with Patient: greater than 25 minutes (Care coordinated with hospitalist) Time Spent with Patient: Greater than 25 minutes spent on this patients care, greater than 50% of time spent counseling, educating, and coordinating care regarding the above mentioned plan. ICD10 Worksheet Patient Problems: Problems Problem Status Onset Hypoxia Acute Pulmonary edema Acute Chronic Disease Mgmt/Transitional Care Acute
--- NOTE | 2016-07-11 12:34 | PDINTPN ---
Vice President Biostatistics Progress Note Assessment/Plan: Assessment: Acute respiratory failure: Hypoxemic/hypercarbic. Improved, but respiratory status remained somewhat marginal today, on more oxygen. Presumed pneumonia, with by basilar infiltrates/atelectasis as well as a component of congestive heart failure. Antibiotics changed to ceftriaxone and azithromycin. Pneumonia : Community-acquired, possibly aspiration, versus CPAP. Improving on the current antibiotics Aspiration risk: Patient was observed to aspirate by myself today. On talking to her family she has a history of coughing when eating. A video swallow will be needed. These findings may make aspiration pneumonia more likely. Coag-negative staph bacteremia. Staph epi, 1/2 bottles, likely contaminant. Congestive heart failure / diastolic dysfunction. Became hypotensive with diuresis and given fluids. Stable at this point and clinically improved, with a chest x-ray consistent with pneumonia and congestive failure. Abnormal mental status. Resolved. MRI negative. Appreciate neurologic consultation. Obesity History of multiple medical problems including hypertension, type 2 diabetes, distant pulmonary embolic disease, and reflux. Plan: Continue antibiotics per ID. Video esophagram needs to be done with speech therapy in attendance. I will order this today. Encourage coughing, deep breathing, bronchopulmonary care. Increase mobilization as tolerated. Continue care in the intensive care unit. Resume gentle diuresis. Follow chest x-ray and laboratory. 30 minutes of critical care time spent directly with the patient today. Discussed with the patient's daughter via an substation operator conversion, respiratory, nursing, hospitalist, and the ICU multi disciplinary team. Subjective: Feels weaker today. Denies significant pain or shortness of breath. She did choke on oral intake today and has done so in the past at home. Objective: Vital Signs Temp Pulse Resp BP Pulse Ox 37.6 C 75 23 H 162/61 H 94 07/11/16 12:13 07/11/16 12:13 07/11/16 12:13 07/11/16 12:13 07/11/16 12:13 Microbiology 07/08/16 21:35 Blood Panel (PCR) - Final Blood Staph Coagulase Negative Laboratory Results 07/11/16 05:55 07/11/16 05:55 07/10/16 07/11/16 07/12/16 05:59 05:59 05:59 Intake Total 3368.3 2397 Output Total 682 400 Balance 2686.3 1997 PT 14.4 SEC (12.0-15.0) 07/06/16 07:15 INR 1.13 (0.83-1.16) 07/06/16 07:15 Physical Exam - Physical Exam General Appearance: no apparent distress, obese, other (Lethargic, arouses and responds.) EENT: PERRL/EOMI, other (Nasal cannula at 6-8 L) Neck: normal inspection (New), other (No obvious jugular venous distension), No lymphadenopathy (R), No lymphadenopathy (L), No thyromegaly Respiratory: decreased breath sounds, rales (At bases bilaterally), No lungs clear, No normal breath sounds, No respiratory distress, No rhonchi, No wheezing Cardiac/Chest: regular rate, rhythm, other (Distant heart tones) Abdomen: non-tender, soft (Obese), No normal bowel sounds Pelvic Exam: other Skin: normal color, warm/dry Extremities: pedal edema (Trace +) Neuro/Psych: no motor/sensory deficits (MovesAll extremities weakly), No cognition abnormalities ICD10 Worksheet Patient Problems: Problems Problem Status Onset Chronic Disease Mgmt/Transitional Care Acute Hypoxia Acute Pulmonary edema Acute
--- NOTE | 2016-07-11 12:50 | HOSPPROG ---
Hospitalist Progress Note Assessment/Plan: 81F initially presented with L facial pain (trigeminal neuralgia), found to be 77% on RA. Treated initially for CHF (EF 30%, unchanged). She decompensated 2 days ago with fever, AMS. Started on empiric abx, now covering for pulm source. # sepsis - had transient pressor requirement, possible pulm source # acute encephalopathy - better today, d/t sepsis # BCx+ for staph epi - possible contaminant - not targeting with abx at this point # acute hypoxic resp failure - d/t pna + pulm edema # acute on chronic CHF exacerbation - EF 30% - per Dr Napoles, no change in EF from 2010 - restarting diuresis today; will need to restart BB soon if tolerates diuresis # pna - abx changed today to rocpehin+azith # trigeminal neuralgia - Tegretol started - better # abnormal tongue - did not respond to fluconazole or nystatin; may be normal variant # CAD - on asa, holding BB, LDL < 70 # DM2 - ssi ## high risk Subjective: feels weaker today Objective: Vital Signs Temp Pulse Resp BP Pulse Ox 37.6 C 75 23 H 162/61 H 94 07/11/16 12:13 07/11/16 12:13 07/11/16 12:13 07/11/16 12:13 07/11/16 12:13 Microbiology 07/08/16 21:35 Blood Panel (PCR) - Final Blood Staph Coagulase Negative Laboratory Results 07/11/16 05:55 07/11/16 05:55 07/10/16 07/11/16 07/12/16 05:59 05:59 05:59 Intake Total 3368.3 2397 Output Total 682 400 Balance 2686.3 1996 PT 14.4 SEC (12.0-15.0) 07/06/16 07:15 INR 1.13 (0.83-1.16) 07/06/16 07:15 - Physical Exam Constitutional: obese, uncomfortable, other (somnolent) Cardiovascular: regular rate and rhythym, no murmur, rub, or gallop Respiratory: no respiratory distress, inspiratory crackles, No expiratory wheeze , No bronchial breath sounds Gastrointestinal: normoactive bowel sounds, soft, non-tender abdomen, no palpable masses ICD10 Worksheet Patient Problems: Problems Problem Status Onset Chronic Disease Mgmt/Transitional Care Acute Hypoxia Acute Pulmonary edema Acute
[2016-07-11] MEDS: AZITHROMYCIN 250 MG TAB PO SCH (15:21)
[2016-07-11] MEDS: FUROSEMIDE 20 MG/2 ML VIAL IVP SCH (15:25)
[2016-07-11] MEDS: guaiFENesin 200 MG/10 ML UDCUP PO PRN ×2 (15:26→20:15)
[2016-07-11] MEDS ORDERED: NON-FORMULARY NEW DRUG (Ezetimibe/Simvastatin [Vytorin 10-20 Mg Tablet] 1 EACH) PO SCH (16:00)
[2016-07-11] MEDS: ATORVASTATIN CALCIUM 10 MG TAB PO SCH (18:48)
[2016-07-11] MEDS: EZETIMIBE 10 MG TAB PO SCH (18:48)
[2016-07-11] MEDS: clonazePAM 0.5 MG TAB PO SCH (20:13)
[2016-07-12] MEDS: ACETAMINOPHEN 325 MG TAB PO PRN (02:23)
[2016-07-12] MEDS: guaiFENesin 200 MG/10 ML UDCUP PO PRN (02:24)
[2016-07-12 04:45] LABS: % IMMATURE GRANULYOCYTES 0.2 % (0.0-1.1); ABSOLUTE IMMATURE GRANULOCYTES 0.01 10^3/uL (0.00-0.10); ADD DIFF? NO; ADD MORPH? NO; ADD SCAN? NO; ATYPICAL LYMPHOCYTE FLAG 50 (0-99); FRAGMENT RBC FLAG 0 (0-99); HEMATOCRIT 32.2 % (38.0-47.0); HEMOGLOBIN 10.3 g/dL (12.6-16.3); LEFT SHIFT FLG 0 (0-99); LIPEMIA HEMOLYSIS FLAG 80 (0-99); MEAN CELL HEMOGLOBIN 32.4 pg (27.9-34.1); MEAN CELL VOLUME 101.3 fL (81.5-99.8); MEAN PLATELET VOLUME 10.1 fL (8.7-11.7); PLATELET CLUMPS FLAG 0 (0-99); PLATELET COUNT 138 10^3/uL (150-400); RED BLOOD CELL COUNT 3.18 10^6/uL (4.18-5.33); RED CELL DISTRIBUTION WIDTH 13.7 % (11.5-15.2)
[2016-07-12 05:02] LABS: ANION GAP 4 mEq/L (8-16); CALCIUM 7.9 mg/dL (8.5-10.4); CARBON DIOXIDE 30 mEq/l (22-31); CHLORIDE 105 mEq/L (97-110); CREATININE 0.9 mg/dL (0.6-1.0); GLOMERULAR FILTRATION RATE 60; GLUCOSE 146 mg/dL (70-100); POTASSIUM 4.3 mEq/L (3.5-5.2); SODIUM 139 mEq/L (134-144)
[2016-07-12] MEDS: NYSTATIN SUSP 500000 UNIT/5 ML UDCUP PO SCH ×4 (06:21→19:39)
[2016-07-12] MEDS: carBAMazepine 200 MG/10 ML UDCUP PO SCH ×2 (08:39→19:38)
[2016-07-12] MEDS: ATORVASTATIN CALCIUM 10 MG TAB PO SCH (08:39)
[2016-07-12] MEDS: ASPIRIN 81 MG CHEWABLE TAB PO SCH (08:39)
[2016-07-12] MEDS: EZETIMIBE 10 MG TAB PO SCH (08:39)
[2016-07-12] MEDS: CALCITRIOL 0.25 MCG CAP PO SCH (08:40)
[2016-07-12] MEDS: ENOXAPARIN 30 MG/0.3 ML SYR SC SCH (08:40)
[2016-07-12] MEDS: FUROSEMIDE 20 MG/2 ML VIAL IVP SCH (08:40)
[2016-07-12] MEDS: INSULIN LISPRO 100 UNIT/ML SC SCH ×3 (08:40→17:51)
[2016-07-12] MEDS: AZITHROMYCIN 250 MG TAB PO SCH (08:40)
[2016-07-12] MEDS: [UNRECOGNIZED DRUG - OTHER] PO SCH (09:09)
[2016-07-12] MEDS ORDERED: FUROSEMIDE 40 MG/4 ML VIAL IVP ONE (10:11)
[2016-07-12] MEDS ORDERED: FUROSEMIDE 20 MG/2 ML VIAL IVP SCH (10:13)
--- NOTE | 2016-07-12 11:55 | PDINTPN ---
Lead Business Analyst Progress Note Assessment/Plan: Assessment: Acute respiratory failure: Hypoxemic/hypercarbic. Improved, but respiratory status a little better today. Presumed pneumonia, with bi-basilar infiltrates/ atelectasis as well as a component of congestive heart failure. On ceftriaxone and azithromycin. Pneumonia : Community-acquired, possibly aspiration, versus CPAP. Improved on the current antibiotics, id following Aspiration risk: Video esophagram did not show evidence of aspiration or aspiration risk yesterday. Coag-negative staph bacteremia. Staph epi, 1/2 bottles, likely contaminant. Congestive heart failure / diastolic dysfunction. Became hypotensive with diuresis and given fluids. Stable at this point and clinically improved, with a chest x-ray consistent with pneumonia and congestive failure. Tolerating diuresis. Will try to increase as input still greater than output. Abnormal mental status. Resolved. MRI negative. Appreciate neurologic consultation. Obesity History of multiple medical problems including hypertension, type 2 diabetes, distant pulmonary embolic disease, and reflux. Plan: Continue antibiotics per ID. Increase mobilization today. Continue bronchopulmonary therapies. Continue care in the intensive care unit in light of her multiple medical problems. Continue Lasix diuresis. Follow chest x-ray and laboratory. 35 minutes of critical care time spent directly with the patient today. Discussed with the patient's daughters via an lang interpreter, respiratory, nursing , hospitalist, and the ICU multi disciplinary team. Subjective: Feels a bit better today. Up in the chair. Somewhat somnolent however arousable and responsive. Denies shortness of breath. No chest pain. Objective: Vital Signs Temp Pulse Resp BP Pulse Ox 36.9 C 69 22 H 136/57 H 93 07/12/16 07:59 07/12/16 07:59 07/12/16 07:59 07/12/16 07:59 07/12/16 07:59 Microbiology 07/08/16 21:35 Blood Panel (PCR) - Final Blood Staph Coagulase Negative Laboratory Results 07/12/16 04:40 07/12/16 04:40 07/11/16 07/12/16 07/13/16 05:59 05:59 05:59 Intake Total 2397 600 Output Total 400 Balance 1996 600 PT 14.4 SEC (12.0-15.0) 07/06/16 07:15 INR 1.13 (0.83-1.16) 07/06/16 07:15 Laboratory Tests 07/12/16 04:40 Calcium 7.9 L NT-Pro-B Natriuret Pep 6490 H Swallow study/esophagram: Did well with this yesterday, without evidence of aspiration. Physical Exam - Physical Exam General Appearance: no apparent distress, obese EENT: PERRL/EOMI, other (Nasal cannula at 5 L), No scleral icterus (R), No scleral icterus (L) Neck: normal inspection, No lymphadenopathy (R), No lymphadenopathy (L), No thyromegaly Respiratory: lungs clear (Anteriorly), decreased breath sounds (At bases), rales (Bibasilar rales), No rhonchi, No wheezing Cardiac/Chest: regular rate, rhythm, other (Distant) Abdomen: normal bowel sounds, non-tender, soft (Obese) Pelvic Exam: other (Buckley catheter in place. Input greater than output over the last 3 days by approximately 2.5 L) Skin: normal color, warm/dry Extremities: pedal edema (1+ bilaterally) Neuro/Psych: no motor/sensory deficits (Moves all extremities equally), No cognition abnormalities ICD10 Worksheet Patient Problems: Problems Problem Status Onset Chronic Disease Mgmt/Transitional Care Acute Hypoxia Acute Pulmonary edema Acute
--- NOTE | 2016-07-12 12:13 | HOSPPROG ---
Hospitalist Progress Note Assessment/Plan: * Acute respiratory failure - hypoxic and hypercarbic -high O2, BIPAP prn * Septic shock - s/p pressors * Pneumonia -ceftriaxone, azithro * Coronavirus + PCR - respiratory isolation * Metabolic encephalopathy * Acute on chronic CHF exacerbation - EF 30% -IV lasix * Trigeminal neuralgia -Tegretol * Staph epi + BC - contaminant * CAD - borderline troponin * DM II * Morbid obesity BMI 49 -suspect underlying chronic respiratory failure from Obesity Hypoventilation * Enlarging thyroid mass -outpatient follow-up Subjective: no new complaints Objective: Vital Signs Temp Pulse Resp BP Pulse Ox 36.9 C 69 22 H 136/57 H 93 07/12/16 07:59 07/12/16 07:59 07/12/16 07:59 07/12/16 07:59 07/12/16 07:59 Microbiology 07/08/16 21:35 Blood Panel (PCR) - Final Blood Staph Coagulase Negative Laboratory Results 07/12/16 04:40 07/12/16 04:40 07/11/16 07/12/16 07/13/16 05:59 05:59 05:59 Intake Total 2397 600 Output Total 400 Balance 1997 600 PT 14.4 SEC (12.0-15.0) 07/06/16 07:15 INR 1.13 (0.83-1.16) 07/06/16 07:15 d/w Dr. Jose Love - ICU rounds - keep step down status CXR viewed, my personal interpretation is - bibasilar infiltrates CTA chest - no PE, thyroid mass enlarging - Physical Exam Constitutional: no apparent distress, appears nourished, not in pain Cardiovascular: regular rate and rhythym, no murmur, rub, or gallop Respiratory: no respiratory distress, no rales or rhonchi, clear to auscultation Gastrointestinal: normoactive bowel sounds, soft, non-tender abdomen, no palpable masses Skin: no rashes or abrasions, no fluctuance, no induration Psychiatric: interacting appropriately, not anxious, encephalopathic, flat affect, No agitated ICD10 Worksheet Patient Problems: Problems Problem Status Onset Hypoxia Acute Pulmonary edema Acute Chronic Disease Mgmt/Transitional Care Acute
--- NOTE | 2016-07-12 16:18 | PCMIDPN ---
Assessment/Plan: Assessment/Plan: * Community-acquired pneumonia: Differential diagnosis includes viral etiology given positive keen virus PCR vs. typical pathogens of community-acquired pneumonia vs. atypicals in light of her contact with birds while in [place] ( cockatiels, cardinals). Plan 5 days of ceftriaxone and azithromycin. Droplet precautions based on isolation of keen virus. 07/12/16 16:15 Subjective: Feels better. Complains of being tired and persistent cough with white phlegm. No chest pain. Objective: Vital Signs Temp Pulse Resp BP Pulse Ox 37.2 C 72 23 H 142/56 H 91 L 07/12/16 12:00 07/12/16 12:00 07/12/16 12:00 07/12/16 12:00 07/12/16 12:00 Microbiology 07/08/16 21:35 Blood Panel (PCR) - Final Blood Staph Coagulase Negative Laboratory Results 07/12/16 04:40 07/12/16 04:40 07/11/16 07/12/16 07/13/16 05:59 05:59 05:59 Intake Total 2397 600 Output Total 400 Balance 1997 600 ESR 29 MM/HR (0-30) 07/06/16 07:15 Ceftriaxone # 2 Azithromycin # 2 - Physical Exam General Appearance: alert, no apparent distress EENT: No thrush Respiratory: crackles (Few at right base), No respiratory distress Cardiac/Chest: regular rate, rhythm Abdomen: non-tender, No distended ICD10 Worksheet Patient Problems: Problems Problem Status Onset Hypoxia Acute Pulmonary edema Acute Chronic Disease [facility]/Transitional Care Acute
[2016-07-12] MEDS: clonazePAM 0.5 MG TAB PO SCH (19:38)
[2016-07-13 05:21] LABS: % IMMATURE GRANULYOCYTES 0.3 % (0.0-1.1); ABSOLUTE IMMATURE GRANULOCYTES 0.01 10^3/uL (0.00-0.10); ADD DIFF? NO; ADD MORPH? NO; ADD SCAN? NO; ATYPICAL LYMPHOCYTE FLAG 60 (0-99); FRAGMENT RBC FLAG 0 (0-99); HEMATOCRIT 32.8 % (38.0-47.0); HEMOGLOBIN 10.7 g/dL (12.6-16.3); LEFT SHIFT FLG 0 (0-99); LIPEMIA HEMOLYSIS FLAG 80 (0-99); MEAN CELL HEMOGLOBIN 32.1 pg (27.9-34.1); MEAN CELL HEMOGLOBIN CONCENTR. 32.6 g/dL (32.4-36.7); MEAN CELL VOLUME 98.5 fL (81.5-99.8); MEAN PLATELET VOLUME 10.1 fL (8.7-11.7); PLATELET CLUMPS FLAG 0 (0-99); PLATELET COUNT 153 10^3/uL (150-400); RED BLOOD CELL COUNT 3.33 10^6/uL (4.18-5.33); RED CELL DISTRIBUTION WIDTH 13.4 % (11.5-15.2)
[2016-07-13 05:23] LABS: ANION GAP 6 mEq/L (8-16); CALCIUM 8.4 mg/dL (8.5-10.4); CARBON DIOXIDE 30 mEq/l (22-31); CHLORIDE 104 mEq/L (97-110); CREATININE 0.9 mg/dL (0.6-1.0); GLOMERULAR FILTRATION RATE 60; GLUCOSE 141 mg/dL (70-100); MAGNESIUM 2.4 mg/dL (1.6-2.3); POTASSIUM 4.4 mEq/L (3.5-5.2); SODIUM 140 mEq/L (134-144)
[2016-07-13] MEDS: NYSTATIN SUSP 500000 UNIT/5 ML UDCUP PO SCH ×4 (06:15→20:33)
[2016-07-13] MEDS: INSULIN LISPRO 100 UNIT/ML SC SCH ×3 (08:39→17:59)
[2016-07-13] MEDS: ENOXAPARIN 30 MG/0.3 ML SYR SC SCH (08:39)
[2016-07-13] MEDS: ASPIRIN 81 MG CHEWABLE TAB PO SCH (08:39)
[2016-07-13] MEDS: ATORVASTATIN CALCIUM 10 MG TAB PO SCH (08:39)
[2016-07-13] MEDS: CALCITRIOL 0.25 MCG CAP PO SCH (08:39)
[2016-07-13] MEDS: AZITHROMYCIN 250 MG TAB PO SCH (08:40)
[2016-07-13] MEDS: EZETIMIBE 10 MG TAB PO SCH (08:40)
[2016-07-13] MEDS: FUROSEMIDE 20 MG/2 ML VIAL IVP SCH ×2 (08:40→15:29)
[2016-07-13] MEDS: CANN-EASE 2 GM TUBE TP PRN (09:37)
[2016-07-13] MEDS: carBAMazepine 200 MG TAB PO SCH ×2 (09:38→20:33)
--- NOTE | 2016-07-13 10:22 | PCMIDPN ---
Assessment/Plan: #Fever and hypoxia, possible LLL PNA (DDx coronavirus, CAP, psittacosis) but also volume overload/IAN playing significant role --reviewed plan for 5 days of antibiotics with patient and daughter with the assistance of a manager drug. Mar adjusted for 5 day course --emphasized increasing activity, using incentive spirometer and deep breathing --continue droplet precautions for coronavirus --will follow peripherally #Blood cx 1/2 CoNS c/w contaminant history and exam obtained with assistance of manager drug Medications Azithromycin 500 mg p.o. daily # 06/11 Ceftriaxone 1 g IV daily # 06/11 Subjective: Feels better today. Less cough. Objective: Vital Signs Temp Pulse Resp BP Pulse Ox 36.8 C 83 21 H 117/43 L 93 07/13/16 07:48 07/13/16 07:48 07/13/16 07:48 07/13/16 07:48 07/13/16 07:48 Laboratory Results 07/13/16 04:53 07/13/16 04:53 07/12/16 07/13/16 07/14/16 05:59 05:59 05:59 Intake Total 600 730 Balance 600 730 ESR 29 MM/HR (0-30) 07/06/16 07:15 - Physical Exam General Appearance: alert, no apparent distress, obese EENT: poor dentition Respiratory: crackles, No respiratory distress, No accessory muscle use Neck: supple Cardiac/Chest: regular rate, rhythm Extremities: pedal edema Abdomen: normal bowel sounds, non-tender, soft Skin: No rash Neuro/Psych: alert, normal mood/affect, oriented x 3 ICD10 Worksheet Patient Problems: Problems Problem Status Onset Hypoxia Acute Pulmonary edema Acute Chronic Disease Mgmt/Transitional Care Acute
--- NOTE | 2016-07-13 11:56 | PDINTPN ---
Granular Operator Progress Note Assessment/Plan: Assessment: Acute respiratory failure: Hypoxemic/hypercarbic. Improved, but respiratory status a little better today. Presumed pneumonia LLL, with bi-basilar infiltrates/atelectasis as well as a component of congestive heart failure. On ceftriaxone and azithromycin. Pneumonia : Community-acquired, possibly aspiration, versus CPAP. Improved on the current antibiotics, id following Aspiration risk: Video esophagram did not show evidence of aspiration or aspiration risk. Still coughs when she eats. Coag-negative staph bacteremia. Staph epi, 1/2 bottles, likely contaminant. Congestive heart failure / diastolic dysfunction. Became hypotensive with diuresis and given fluids. Stable at this point and clinically improved, with a chest x-ray consistent with pneumonia and congestive failure. Tolerating diuresis. On 40 mg of Lasix IV per day. Cannot get accurate I/Os. Will need to go by weights which appears stable at this time since admission. Abnormal mental status. Resolved. MRI negative. Appreciate neurologic consultation. Obesity History of multiple medical problems including hypertension, type 2 diabetes, distant pulmonary embolic disease, and reflux. Plan: Continue antibiotics. Increase mobilization as tolerated. Continue oxygen, IS, and bronchopulmonary therapies. Continue Lasix diuresis. Follow chest x-ray intermittently, laboratory. Can transfer to a medical-surgical bed at this point, and again to make plans regarding discharge most likely to home. She will need oxygen on discharge. 30 minutes of critical care time spent directly with the patient. Discussed with the patient's daughters, respiratory, nursing, hospitalist, and the ICU multi disciplinary team. Subjective: Feels better. Wants to go home. Up in the chair. Remains on oxygen about 5 L. Has a fairly good cough, occasionally brings up a small amount of whitish mucus. Denies pain. Objective: Vital Signs Temp Pulse Resp BP Pulse Ox 36.8 C 77 23 H 145/56 H 92 07/13/16 07:48 07/13/16 11:17 07/13/16 11:17 07/13/16 11:17 07/13/16 11:17 Laboratory Results 07/13/16 04:53 07/13/16 04:53 07/12/16 07/13/16 07/14/16 05:59 05:59 05:59 Intake Total 600 730 Balance 600 730 PT 14.4 SEC (12.0-15.0) 07/06/16 07:15 INR 1.13 (0.83-1.16) 07/06/16 07:15 Laboratory Tests 07/13/16 07/13/16 04:53 07:38 POC Glucose 184 H Calcium 8.4 L Magnesium 2.4 H CXR: Overall improvement in congestive heart failure. Large cardiac silhouette. Left lower lobe atelectasis/infiltrate/effusion persists. Physical Exam - Physical Exam General Appearance: alert, no apparent distress, obese EENT: other (Oxygen in place by nasal cannula or OxyMask.) Neck: normal inspection (No obvious JVD but neck quite large.) Respiratory: lungs clear (Anteriorly), rales (Rales at bases bilaterally), No respiratory distress, No rhonchi, No wheezing Cardiac/Chest: regular rate, rhythm (Distant heart tones. Soft systolic murmur. Probable gallop?) Abdomen: normal bowel sounds, non-tender, soft (Obese) Pelvic Exam: other (No Buckley catheter. Urine output cannot be assessed.) Skin: normal color, warm/dry Extremities: pedal edema Neuro/Psych: no motor/sensory deficits, motor weakness (Generalized comma chronic, stable), No cognition abnormalities ICD10 Worksheet Patient Problems: Problems Problem Status Onset Hypoxia Acute Pulmonary edema Acute Chronic Disease Mgmt/Transitional Care Acute
--- NOTE | 2016-07-13 16:02 | HOSPPROG ---
Hospitalist Progress Note Assessment/Plan: * Acute on chronic respiratory failure - hypoxic and hypercarbic -wean O2, BIPAP prn -refused home O2 in past - report of chronic hypoxia * Septic shock - s/p pressors * Pneumonia -ceftriaxone, azithro * Coronavirus + PCR - respiratory isolation * Metabolic encephalopathy * Acute on chronic CHF exacerbation - EF 30% -IV lasix * Trigeminal neuralgia -Tegretol * Staph epi + BC - contaminant * CAD - borderline troponin * DM II * Morbid obesity BMI 49 -suspect underlying chronic respiratory failure from Obesity Hypoventilation * Enlarging thyroid mass -outpatient follow-up Slow improvement. Increase diuresis as able. Wean O2. Palliative care consult as patient refuses some therapies. Objective: Vital Signs Temp Pulse Resp BP Pulse Ox 36.8 C 84 24 H 151/62 H 94 07/13/16 07:48 07/13/16 15:34 07/13/16 15:34 07/13/16 15:34 07/13/16 15:34 Laboratory Results 07/13/16 04:53 07/13/16 04:53 07/12/16 07/13/16 07/14/16 05:59 05:59 05:59 Intake Total 600 730 Balance 600 730 PT 14.4 SEC (12.0-15.0) 07/06/16 07:15 INR 1.13 (0.83-1.16) 07/06/16 07:15 d/w Dr. Jose Love ICU rounds - try to move towards discharge, has chronic hypoxia and refused home O2 in past CXR viewed, my personal interpretation is - possible pulm edema, pna unchanged - Physical Exam Constitutional: no apparent distress, appears nourished, not in pain Cardiovascular: regular rate and rhythym, no murmur, rub, or gallop Respiratory: no respiratory distress, no rales or rhonchi, clear to auscultation Gastrointestinal: normoactive bowel sounds, soft, non-tender abdomen, no palpable masses Skin: no rashes or abrasions, no fluctuance, no induration Neurologic: AAOx3, sensation intact bilaterally Psychiatric: interacting appropriately, not anxious, not encephalopathic, thought process linear ICD10 Worksheet Patient Problems: Problems Problem Status Onset Hypoxia Acute Pulmonary edema Acute Chronic Disease Mgmt/Transitional Care Acute
[2016-07-13] MEDS: guaiFENesin 200 MG/10 ML UDCUP PO PRN (20:33)
[2016-07-13] MEDS: clonazePAM 0.5 MG TAB PO SCH (20:33)
[2016-07-14 05:34] LABS: ANION GAP 8 mEq/L (8-16); CALCIUM 8.3 mg/dL (8.5-10.4); CARBON DIOXIDE 31 mEq/l (22-31); CHLORIDE 101 mEq/L (97-110); CREATININE 0.9 mg/dL (0.6-1.0); GLOMERULAR FILTRATION RATE 60; GLUCOSE 176 mg/dL (70-100); POTASSIUM 4.6 mEq/L (3.5-5.2); SODIUM 140 mEq/L (134-144)
[2016-07-14] MEDS: NYSTATIN SUSP 500000 UNIT/5 ML UDCUP PO SCH ×4 (06:19→21:00)
[2016-07-14] MEDS: carBAMazepine 200 MG TAB PO SCH ×2 (09:46→21:00)
[2016-07-14] MEDS: CALCITRIOL 0.25 MCG CAP PO SCH (09:46)
[2016-07-14] MEDS: FUROSEMIDE 20 MG/2 ML VIAL IVP SCH ×2 (09:46→15:45)
[2016-07-14] MEDS: AZITHROMYCIN 250 MG TAB PO SCH (09:46)
[2016-07-14] MEDS: ASPIRIN 81 MG CHEWABLE TAB PO SCH (09:46)
[2016-07-14] MEDS: ATORVASTATIN CALCIUM 10 MG TAB PO SCH (09:46)
[2016-07-14] MEDS: ENOXAPARIN 30 MG/0.3 ML SYR SC SCH (09:47)
[2016-07-14] MEDS: EZETIMIBE 10 MG TAB PO SCH (09:47)
[2016-07-14] MEDS: INSULIN LISPRO 100 UNIT/ML SC SCH ×3 (09:53→17:49)
--- NOTE | 2016-07-14 12:05 | PDINTPN ---
[employer] Progress Note Assessment/Plan: Assessment: Acute respiratory failure: Hypoxemic/hypercarbic. Improved. Secondary to congestive heart failure and possible left lower lobe pneumonia. Chest x-ray is slowly better. Pneumonia : Community-acquired, possibly aspiration, versus CPAP. Improved on the current antibiotics, id following Aspiration risk: Video esophagram did not show evidence of aspiration or aspiration risk. Still coughs when she eats. Coag-negative staph bacteremia. Staph epi, 1/2 bottles, likely contaminant. Congestive heart failure / diastolic dysfunction. Became hypotensive initially with diuresis and given fluids. Stable now. Tolerating diuresis, with improving chest x-ray and clinical status. On 40 mg of Lasix IV BID. Cannot get accurate I/Os. Will need to go by weights, which appears to be down a couple kg over the last 2 days. Abnormal mental status. Resolved. MRI negative. Appreciate neurologic consultation. Obesity History of multiple medical problems including hypertension, type 2 diabetes, distant pulmonary embolic disease, and reflux. Plan: Continue antibiotics for 2 more days to complete a 10 day course. Increase mobilization as tolerated. Continue oxygen, IS, and bronchopulmonary therapies. Continue Lasix diuresis. Follow chest x-ray intermittently, laboratory. She will need oxygen on discharge and ongoing Lasix at higher doses than what she was on on admission (20). I will sign off at this point. Please call me if I can be of further assistance. Subjective: Up in chair. Appears to be feeling better. Awake, alert, in good spirits. Wants to go home. Objective: Vital Signs Temp Pulse Resp BP Pulse Ox 36.7 C 89 24 H 120/76 90 L 07/14/16 11:46 07/14/16 11:46 07/14/16 11:46 07/14/16 11:46 07/14/16 11:46 Microbiology 07/08/16 21:35 Blood Culture - Final Blood Staphylococcus Epidermidis Blood Panel (PCR) - Final Staph Coagulase Negative 07/08/16 21:40 Blood Culture - Final Blood Laboratory Results 07/13/16 04:53 07/14/16 05:00 07/13/16 07/14/16 07/15/16 05:59 05:59 05:59 Intake Total 730 930 Output Total 351 Balance 730 579 PT 14.4 SEC (12.0-15.0) 07/06/16 07:15 INR 1.13 (0.83-1.16) 07/06/16 07:15 CXR: Improving congestive heart failure/effusions/atelectasis/infiltrates at both bases. Physical Exam - Physical Exam General Appearance: alert, no apparent distress, obese, other (Up in chair) EENT: other (Oxygen currently at 4 L, decreased. Prefers mask) Neck: normal inspection (No obvious jugular venous distension but large neck) Respiratory: lungs clear (Anteriorly), decreased breath sounds (At the bases), rales (Rales improving, much better at the bases), No rhonchi, No wheezing Cardiac/Chest: regular rate, rhythm (Heart tones) Abdomen: normal bowel sounds, non-tender, soft (Obese) Pelvic Exam: other (No Buckley catheter) Back: Normal inspection Skin: normal color, warm/dry Extremities: pedal edema (1+ edema/anasarca) Neuro/Psych: no motor/sensory deficits, motor weakness (Globally weak), No cognition abnormalities ICD10 Worksheet Patient Problems: Problems Problem Status Onset Chronic Disease [facility]/Transitional Care Acute Hypoxia Acute Pulmonary edema Acute
--- NOTE | 2016-07-14 14:20 | HOSPPROG ---
Hospitalist Progress Note Assessment/Plan: * Acute on chronic respiratory failure - hypoxic and hypercarbic -wean O2 -refused home O2 in past - report of chronic hypoxia * Septic shock - s/p pressors * Pneumonia -ceftriaxone, azithro * Coronavirus + PCR - respiratory isolation * Metabolic encephalopathy * Acute on chronic CHF exacerbation - EF 30% - new low EF -IV lasix - still volume overload -wall motion abnormality - no previous cath -check Lexiscan stress test in am * Suspect IAN - outpatient sleep study * Trigeminal neuralgia -Tegretol * Staph epi + BC - contaminant * CAD - borderline troponin * DM II * Morbid obesity BMI 49 -suspect underlying chronic respiratory failure from Obesity Hypoventilation * Enlarging thyroid mass -outpatient follow-up Subjective: No new complaints Objective: Vital Signs Temp Pulse Resp BP Pulse Ox 36.7 C 89 24 H 120/76 90 L 07/14/16 11:46 07/14/16 11:46 07/14/16 11:46 07/14/16 11:46 07/14/16 11:46 Microbiology 07/08/16 21:35 Blood Culture - Final Blood Staphylococcus Epidermidis Blood Panel (PCR) - Final Staph Coagulase Negative 07/08/16 21:40 Blood Culture - Final Blood Laboratory Results 07/13/16 04:53 07/14/16 05:00 07/13/16 07/14/16 07/15/16 05:59 05:59 05:59 Intake Total 730 930 Output Total 351 Balance 730 579 PT 14.4 SEC (12.0-15.0) 07/06/16 07:15 INR 1.13 (0.83-1.16) 07/06/16 07:15 CXR viewed, my personal interpretation is - improved aeration tele reviewed - NSR - Physical Exam Constitutional: no apparent distress, appears nourished, not in pain Cardiovascular: regular rate and rhythym, no murmur, rub, or gallop, edema (2+) Respiratory: no respiratory distress, no rales or rhonchi, clear to auscultation Gastrointestinal: normoactive bowel sounds, soft, non-tender abdomen, no palpable masses Skin: no rashes or abrasions, no fluctuance, no induration Neurologic: AAOx3, sensation intact bilaterally Psychiatric: interacting appropriately, not anxious, not encephalopathic, thought process linear ICD10 Worksheet Patient Problems: Problems Problem Status Onset Hypoxia Acute Pulmonary edema Acute Chronic Disease Mgmt/Transitional Care Acute
[2016-07-14] MEDS ORDERED: traZODone 50 MG TAB PO PRN (22:10)
[2016-07-15] MEDS: NYSTATIN SUSP 500000 UNIT/5 ML UDCUP PO SCH ×4 (05:30→20:02)
[2016-07-15 05:39] LABS: % IMMATURE GRANULYOCYTES 0.2 % (0.0-1.1); ABSOLUTE IMMATURE GRANULOCYTES 0.01 10^3/uL (0.00-0.10); ADD DIFF? NO; ADD MORPH? NO; ADD SCAN? NO; ATYPICAL LYMPHOCYTE FLAG 60 (0-99); FRAGMENT RBC FLAG 0 (0-99); HEMOGLOBIN 7.5 g/dL (12.6-16.3); LEFT SHIFT FLG 0 (0-99); LIPEMIA HEMOLYSIS FLAG 80 (0-99); MEAN CELL HEMOGLOBIN 31.8 pg (27.9-34.1); MEAN CELL HEMOGLOBIN CONCENTR. 32.6 g/dL (32.4-36.7); MEAN CELL VOLUME 97.5 fL (81.5-99.8); MEAN PLATELET VOLUME 10.3 fL (8.7-11.7); PLATELET CLUMPS FLAG 0 (0-99); PLATELET COUNT 179 10^3/uL (150-400); RED BLOOD CELL COUNT 2.36 10^6/uL (4.18-5.33); RED CELL DISTRIBUTION WIDTH 13.5 % (11.5-15.2)
[2016-07-15 05:56] LABS: ANION GAP 9 mEq/L (8-16); CALCIUM 8.9 mg/dL (8.5-10.4); CARBON DIOXIDE 29 mEq/l (22-31); CHLORIDE 102 mEq/L (97-110); CREATININE 0.9 mg/dL (0.6-1.0); GLOMERULAR FILTRATION RATE 60; GLUCOSE 151 mg/dL (70-100); POTASSIUM 3.9 mEq/L (3.5-5.2); SODIUM 140 mEq/L (134-144)
[2016-07-15] MEDS: INSULIN LISPRO 100 UNIT/ML SC SCH ×3 (09:01→17:56)
[2016-07-15] MEDS: ASPIRIN 81 MG CHEWABLE TAB PO SCH (09:03)
[2016-07-15] MEDS: AZITHROMYCIN 250 MG TAB PO SCH (09:04)
[2016-07-15] MEDS: ATORVASTATIN CALCIUM 10 MG TAB PO SCH (09:04)
[2016-07-15] MEDS: carBAMazepine 200 MG TAB PO SCH ×2 (09:05→20:02)
[2016-07-15] MEDS: CALCITRIOL 0.25 MCG CAP PO SCH (09:05)
[2016-07-15] MEDS: EZETIMIBE 10 MG TAB PO SCH (09:06)
[2016-07-15] MEDS: ENOXAPARIN 30 MG/0.3 ML SYR SC SCH (09:07)
[2016-07-15] MEDS: FUROSEMIDE 20 MG/2 ML VIAL IVP SCH ×2 (09:08→15:14)
[2016-07-15] MEDS ORDERED: REGADENOSON 0.4 MG/5 ML SYR IVP ONE (09:35)
--- NOTE | 2016-07-15 15:39 | HOSPPROG ---
Hospitalist Progress Note Assessment/Plan: * Acute on chronic respiratory failure - hypoxic and hypercarbic -wean O2 -refused home O2 in past - report of chronic hypoxia * Septic shock - s/p pressors * Pneumonia -ceftriaxone, azithro * Coronavirus + PCR - respiratory isolation * Metabolic encephalopathy * Acute on chronic CHF exacerbation - EF 30% - new low EF -IV lasix - still volume overload -wall motion abnormality - no previous cath -Lexiscan stress test desired by patient - Sunday * Suspect IAN - outpatient sleep study * Trigeminal neuralgia -Tegretol * Staph epi + BC - contaminant * CAD - borderline troponin * DM II * Morbid obesity BMI 49 -suspect underlying chronic respiratory failure from Obesity Hypoventilation * Enlarging thyroid mass -outpatient follow-up Subjective: no complaints Objective: Vital Signs Temp Pulse Resp BP Pulse Ox 36.7 C 83 14 111/74 92 07/15/16 15:27 07/15/16 15:27 07/15/16 15:27 07/15/16 15:27 07/15/16 15:27 Laboratory Results 07/15/16 05:30 07/15/16 05:30 07/14/16 07/15/16 07/16/16 05:59 05:59 05:59 Intake Total 930 300 Output Total 351 Balance 579 300 PT 14.4 SEC (12.0-15.0) 07/06/16 07:15 INR 1.13 (0.83-1.16) 07/06/16 07:15 - Physical Exam Constitutional: no apparent distress, appears nourished, not in pain Cardiovascular: regular rate and rhythym, no murmur, rub, or gallop, edema (3+) Respiratory: no respiratory distress, no rales or rhonchi, clear to auscultation Gastrointestinal: normoactive bowel sounds, soft, non-tender abdomen, no palpable masses Skin: no rashes or abrasions, no fluctuance, no induration Neurologic: AAOx3, sensation intact bilaterally Psychiatric: interacting appropriately, not anxious, not encephalopathic, thought process linear ICD10 Worksheet Patient Problems: Problems Problem Status Onset Hypoxia Acute Pulmonary edema Acute Chronic Disease Mgmt/Transitional Care Acute
[2016-07-16] MEDS: NYSTATIN SUSP 500000 UNIT/5 ML UDCUP PO SCH ×4 (05:39→20:35)
[2016-07-16 05:42] LABS: % IMMATURE GRANULYOCYTES 0.5 % (0.0-1.1); ABSOLUTE IMMATURE GRANULOCYTES 0.02 10^3/uL (0.00-0.10); ADD DIFF? NO; ADD MORPH? NO; ADD SCAN? NO; ATYPICAL LYMPHOCYTE FLAG 50 (0-99); FRAGMENT RBC FLAG 0 (0-99); HEMATOCRIT 21.8 % (38.0-47.0); HEMOGLOBIN 7.3 g/dL (12.6-16.3); LEFT SHIFT FLG 0 (0-99); LIPEMIA HEMOLYSIS FLAG 80 (0-99); MEAN CELL HEMOGLOBIN 32.3 pg (27.9-34.1); MEAN CELL HEMOGLOBIN CONCENTR. 33.5 g/dL (32.4-36.7); MEAN CELL VOLUME 96.5 fL (81.5-99.8); MEAN PLATELET VOLUME 9.9 fL (8.7-11.7); PLATELET CLUMPS FLAG 0 (0-99); PLATELET COUNT 198 10^3/uL (150-400); RED BLOOD CELL COUNT 2.26 10^6/uL (4.18-5.33); RED CELL DISTRIBUTION WIDTH 13.5 % (11.5-15.2)
[2016-07-16 05:59] LABS: ANION GAP 7 mEq/L (8-16); CALCIUM 8.9 mg/dL (8.5-10.4); CARBON DIOXIDE 33 mEq/l (22-31); CHLORIDE 101 mEq/L (97-110); GLOMERULAR FILTRATION RATE 53; GLUCOSE 144 mg/dL (70-100); SODIUM 141 mEq/L (134-144)
[2016-07-16] MEDS: INSULIN LISPRO 100 UNIT/ML SC SCH ×3 (08:01→17:58)
[2016-07-16] MEDS: FUROSEMIDE 20 MG/2 ML VIAL IVP SCH (08:08)
[2016-07-16] MEDS: ENOXAPARIN 30 MG/0.3 ML SYR SC SCH (08:11)
[2016-07-16] MEDS: ASPIRIN 81 MG CHEWABLE TAB PO SCH (08:13)
[2016-07-16] MEDS: EZETIMIBE 10 MG TAB PO SCH (08:13)
[2016-07-16] MEDS: CALCITRIOL 0.25 MCG CAP PO SCH (08:13)
[2016-07-16] MEDS: carBAMazepine 200 MG TAB PO SCH ×2 (08:14→20:36)
[2016-07-16] MEDS: AZITHROMYCIN 250 MG TAB PO SCH (08:15)
[2016-07-16] MEDS: ATORVASTATIN CALCIUM 10 MG TAB PO SCH (08:16)
[2016-07-16] MEDS ORDERED: acetaZOLAMIDE 250 MG in SYRINGE 0 ML IVP ONE ×2 (09:22→09:36)
[2016-07-16] MEDS ORDERED: acetaZOLAMIDE 500 MG in SYRINGE 0 ML IVP ONE (09:23)
[2016-07-16] MEDS ORDERED: PANTOPRAZOLE SODIUM 40 MG in NS 100 ML IV SCH (09:30)
[2016-07-16 11:49] LABS: OCCULT BLOOD FECES POSITIVE (NEGATIVE)
[2016-07-16] MEDS: LISINOPRIL 5 MG TAB PO SCH (12:36)
[2016-07-16] MEDS ORDERED: GOLYTELY 4000 ML BTL PO ONE (12:48)
[2016-07-16 12:50] LABS: HEMOGLOBIN 7.5 g/dL (12.6-16.3)
[2016-07-16 13:14] LABS: CLOSTRIDIUM DIFFICILE DNA NEGATIVE (NEGATIVE)
--- NOTE | 2016-07-16 13:43 | HOSPPROG ---
Hospitalist Progress Note Assessment/Plan: * Acute on chronic respiratory failure - hypoxic and hypercarbic -wean O2 -refused home O2 in past - report of chronic hypoxia * Septic shock - s/p pressors * Pneumonia -ceftriaxone, azithro * Coronavirus + PCR - respiratory isolation * Metabolic encephalopathy - resolved * Acute on chronic CHF exacerbation - EF 30% - new low EF -volume status better - change lasix to PO -wall motion abnormality - no previous cath -Lexiscan stress test desired by patient - when stable -consider cardiology consult * Suspect IAN - outpatient sleep study * GIB with ABL anemia -initially reported as dark stool, now red - heme + -d/w Dr. Mercado - plan for EGD and colonoscopy in am -serial H/H - IV PPI - golytely prep -hold ASA, Lovenox * Trigeminal neuralgia -Tegretol * Staph epi + BC - contaminant * CAD - borderline troponin * DM II * Morbid obesity BMI 49 -suspect underlying chronic respiratory failure from Obesity Hypoventilation * Enlarging thyroid mass -outpatient follow-up Palliative care consult scheduled for Sunday. Patient is unclear regarding her desired aggressive level of care. Often refusing therapies, but language barrier and understanding might be an issue despite use of interpreters. COR status should be discussed. If ongoing aggressive care is desired, I would think stress test and cardiology consult indicated given new low ejection fraction. Subjective: Stool black,now BRBPR Objective: Vital Signs Temp Pulse Resp BP Pulse Ox 37 C 69 18 141/61 H 98 07/16/16 08:00 07/16/16 08:00 07/16/16 08:00 07/16/16 08:00 07/16/16 08:00 Laboratory Results 07/16/16 12:35 07/16/16 05:25 07/15/16 07/16/16 07/17/16 05:59 05:59 05:59 Intake Total 300 Balance 300 PT 14.4 SEC (12.0-15.0) 07/06/16 07:15 INR 1.13 (0.83-1.16) 07/06/16 07:15 - Physical Exam Constitutional: no apparent distress, appears nourished, not in pain, obese, No uncomfortable Cardiovascular: regular rate and rhythym, no murmur, rub, or gallop, edema (1+) Respiratory: no respiratory distress, no rales or rhonchi, clear to auscultation , other (slumped in chair, I'm not sure she is getting good respiratory excursion) Gastrointestinal: normoactive bowel sounds, soft, non-tender abdomen, no palpable masses Skin: no rashes or abrasions, no fluctuance, no induration Psychiatric: other (sitting in chair, following commands.) ICD10 Worksheet Patient Problems: Problems Problem Status Onset Hypoxia Acute Pulmonary edema Acute Chronic Disease [facility]/Transitional Care Acute
[2016-07-16] MEDS: metFORMIN HCL 850 MG TAB PO SCH (18:01)
--- NOTE | 2016-07-16 18:54 | GCON ---
[f rep st] CONSULTATION INPATIENT CONSULTATION NOTE REQUESTING PHYSICIAN: Dr. Dominguez. CHIEF COMPLAINT: Melena and post hemorrhagic anemia. HISTORY OF PRESENT ILLNESS: I was asked by Dr. Dominguez to evaluate the patient for melena and posthem orrhagic anemia. The patient has had a complicated hospital course. She was [facility] on [facility], 2016. She has a history of coronary artery disease, hypertension, diabetes, morbid obesity, heart failure, prior pulmonary embolism who presented to the emergency room for evaluation complaining of facial pain. She had also been having increasing dyspnea and dry cough. In the [facility] room, she was found to be hypoxic. Imaging showed pulmonary edema and pleural effusion consis tent with pneumonia. She was admitted to the hospital for management of her pulmonary symptoms. Sancho arceo was in essence in mild acute hypoxic respiratory failure, as well as some acute on chronic congest trav heart failure. Over the course of her hospital stay, she was diagnosed with coronavirus pneumon ia. She has gradually improved with management of pneumonia and heart failure. It was noticed over the last 3 days that she began to feel somewhat weak. Her family reports she wa s having dark black stools. Some stools were even maroon in color. Coincident with this change in bowel habit, she had a relatively brisk drop in her hematocrit. Her hematocrits had been in the mid to high 30s with some, in fact, over 40. On the , her hematocrit fell to 23. On the , it wa s 21. Repeat on the , it was 23. Coincident with this change, it was noticed that her BUN was a lso elevated. She reports no abdominal symptoms. She has had no nausea or vomiting. She has no epigastric pain. She denies any prior history of GI bleeding. She does not have any history of undergone upper or lo wer endoscopy for any reason in the past. ALLERGIES: None. MEDICATIONS: Tylenol, aspirin, Lipitor, Tegretol, calcitriol, Coreg, Lovenox, Zetia, Lasix, insulin , Zestril, Glucophage, Zofran, Protonix, trazodone. PAST MEDICAL HISTORY: Includes hypertension, coronary artery disease, diabetes, osteoarthritis, ref lux, history of pulmonary embolism, heart failure. SOCIAL HISTORY: She lives in [place] is currently here visiting her family. She does not smoke ciga rettes. She does not drink alcohol. SURGICAL HISTORY: She has had a cholecystectomy. FAMILY HISTORY: Negative for peptic disease or colon cancer to her knowledge. REVIEW OF SYSTEMS: A complete 10-system review was undertaken with the patient and is negative exce pt for those details that are described in the history of present illness. PHYSICAL EXAM: GENERAL: This is an obese, well-developed female in no apparent distress. HEENT: Her pupils are equal, round, reactive to light and accommodation. Her sclerae are nonicteric. Her oropharynx is clear. She has no mouth ulcers. Heart: Reveals regular rate and rhythm without murm urs, rubs or gallops. Respiratory: Reveals no respiratory distress, rales or rhonchi. Gastrointes tinal: Reveals normoactive bowel sounds but nontender abdomen. She has no guarding or rebound. Sh e does not have distention. Skin: Warm with normal color. Musculoskeletal: She appears to have f ull range of motion with normal strength. Neurologic: Her cranial nerves are grossly intact. Psyc hiatric: Patient is appropriate, not anxious, answers questions appropriately through her family. LABORATORY TESTING: Today, her white count of 4.37, hemoglobin of 7.3, hematocrit of 21.8 at 5:00 a .m. At noon, hematocrit was repeated, it was 23. Sodium of 141, potassium of 4.0, chloride of 101, bicarb of 33, BUN of 63, creatinine of 1.0. IMPRESSION AND RECOMMENDATIONS: The patient has had a change in her hematocrit accompanied by an el evation in her BUN in the setting of the development of melena. Differential diagnosis includes bot h upper and lower sources of bleeding. Given the clinical clues, however, I suspect an upper GI rosibel rce of bleeding. I recommend she remain n.p.o. She should begin IV proton pump inhibitor therapy, and we will plan for upper endoscopy. Given her morbid obesity and recent respiratory failure, she will be at increased risk of sedation. We will ask our anesthesia colleagues to help with her sedat ion. If her upper endoscopy is negative, we will need to consider additional workup. This might in clude small bowel evaluation and/or colonoscopy. /[id number]/MODL
[2016-07-16] MEDS: FUROSEMIDE 40 MG TAB PO SCH (20:35)
[2016-07-16] MEDS: PANTOPRAZOLE SODIUM 40 MG in NS 100 ML IV SCH (20:36)
[2016-07-17 01:25] LABS: HEMATOCRIT 21.4 % (38.0-47.0)
[2016-07-17 01:55] LABS: HEMOGLOBIN 6.9 g/dL (12.6-16.3)
[2016-07-17] MEDS: NYSTATIN SUSP 500000 UNIT/5 ML UDCUP PO SCH ×4 (05:21→21:05)
[2016-07-17 05:32] LABS: % IMMATURE GRANULYOCYTES 0.8 % (0.0-1.1); ABSOLUTE IMMATURE GRANULOCYTES 0.04 10^3/uL (0.00-0.10); ADD DIFF? NO; ADD MORPH? NO; ADD SCAN? NO; ATYPICAL LYMPHOCYTE FLAG 20 (0-99); FRAGMENT RBC FLAG 0 (0-99); HEMATOCRIT 22.6 % (38.0-47.0); HEMOGLOBIN 7.3 g/dL (12.6-16.3); LEFT SHIFT FLG 0 (0-99); LIPEMIA HEMOLYSIS FLAG 80 (0-99); MEAN CELL HEMOGLOBIN 32.9 pg (27.9-34.1); MEAN CELL HEMOGLOBIN CONCENTR. 32.3 g/dL (32.4-36.7); MEAN CELL VOLUME 101.8 fL (81.5-99.8); MEAN PLATELET VOLUME 10.1 fL (8.7-11.7); PLATELET CLUMPS FLAG 0 (0-99); PLATELET COUNT 257 10^3/uL (150-400); RED BLOOD CELL COUNT 2.22 10^6/uL (4.18-5.33); RED CELL DISTRIBUTION WIDTH 13.5 % (11.5-15.2)
[2016-07-17 06:00] LABS: ANION GAP 9 mEq/L (8-16); CALCIUM 8.8 mg/dL (8.5-10.4); CARBON DIOXIDE 32 mEq/l (22-31); CHLORIDE 100 mEq/L (97-110); CREATININE 1.1 mg/dL (0.6-1.0); GLOMERULAR FILTRATION RATE 48; GLUCOSE 147 mg/dL (70-100); POTASSIUM 3.6 mEq/L (3.5-5.2); SODIUM 141 mEq/L (134-144)
[2016-07-17] MEDS: EZETIMIBE 10 MG TAB PO SCH (08:19)
[2016-07-17] MEDS: ATORVASTATIN CALCIUM 10 MG TAB PO SCH (08:19)
[2016-07-17] MEDS: CALCITRIOL 0.25 MCG CAP PO SCH (08:19)
[2016-07-17] MEDS: LISINOPRIL 5 MG TAB PO SCH (08:20)
[2016-07-17] MEDS: FUROSEMIDE 40 MG TAB PO SCH (08:20)
[2016-07-17] MEDS: carBAMazepine 200 MG TAB PO SCH ×2 (08:28→21:04)
--- NOTE | 2016-07-17 08:53 | HOSPPROG ---
Hospitalist Progress Note Assessment/Plan: Patient is an 81/F with history of diastolic CHF, CAD, HTN, HLD, DM2, obesity who presents to the ED on July 06 with complaint of R facial electrical-type pain. On arrival to the ED, patient was found to be significantly hypoxic, with CT chest revealing mild-moderate pulmonary edema. * Acute on chronic respiratory failure - hypoxic and hypercarbic -wean O2 -refused home O2 in past - report of chronic hypoxia * Septic shock - s/p pressors -resolved * Pneumonia -was treated with ceftriaxone, azithromycin * Coronavirus + PCR - respiratory isolation * Metabolic encephalopathy - resolved * Acute on chronic CHF exacerbation - EF 30% - new low EF -volume status better - change Lasix to PO -wall motion abnormality - no previous cath -Lexiscan stress test desired by patient - when stable -consider cardiology consult * Suspect IAN - outpatient sleep study * GIB with ABL anemia -initially reported as dark stool, now red - heme + -EGD and colonoscopy today -ASA and Lovenox on hold -PPI * Trigeminal neuralgia -Tegretol -no further c/o facial pain * Staph epi + BC - contaminant * CAD - borderline troponin * DM II * Morbid obesity BMI 49 -suspect underlying chronic respiratory failure from Obesity Hypoventilation * Enlarging thyroid mass -outpatient follow-up Palliative care consult scheduled for Sunday. Patient is unclear regarding her desired aggressive level of care. Often refusing therapies, but language barrier and understanding might be an issue despite use of interpreters. COR status should be discussed. If ongoing aggressive care is desired, I would think stress test and cardiology consult indicated given new low ejection fraction. Subjective: Dodie is very quiet when I evaluated her/ daughter answers for her/ no c/o pain but is hungry. (met with patient and family with an horticultural farmworker) Objective: Vital Signs Temp Pulse Resp BP Pulse Ox 36.6 C 75 12 124/58 H 94 07/17/16 07:21 07/17/16 07:21 07/17/16 07:21 07/17/16 08:20 07/17/16 07:21 Laboratory Results 07/17/16 05:00 07/17/16 05:00 07/16/16 07/17/16 07/18/16 05:59 05:59 05:59 Intake Total 240 Balance 240 PT 14.4 SEC (12.0-15.0) 07/06/16 07:15 INR 1.13 (0.83-1.16) 07/06/16 07:15 - Physical Exam Constitutional: no apparent distress, obese, uncomfortable Eyes: PERRL Ears, Nose, Mouth, Throat: hearing normal Cardiovascular: regular rate and rhythym, other (distant heart tone) Respiratory: no rales or rhonchi Gastrointestinal: normoactive bowel sounds, soft, non-tender abdomen, other ( large and round) Skin: warm Musculoskeletal: no muscle tenderness Neurologic: other (alert and answers appropriately, but diff with family and location analyst to get a good interpretation of her status) Psychiatric: interacting appropriately, not anxious, flat affect ICD10 Worksheet Patient Problems: Problems Problem Status Onset Hypoxia Acute Palliative care encounter Acute Pulmonary edema Acute Chronic Disease Mgmt/Transitional Care Acute
[2016-07-17] MEDS ORDERED: PANTOPRAZOLE SODIUM 40 MG TAB PO SCH (09:00)
[2016-07-17] MEDS ORDERED: FUROSEMIDE 40 MG TAB PO SCH (09:00)
[2016-07-17] MEDS: metFORMIN HCL 850 MG TAB PO SCH ×3 (09:02→18:13)
[2016-07-17] MEDS: INSULIN LISPRO 100 UNIT/ML SC SCH ×3 (09:02→18:14)
[2016-07-17] MEDS: PANTOPRAZOLE SODIUM 40 MG in NS 100 ML IV SCH ×2 (09:09→21:05)
[2016-07-17] MEDS ORDERED: D5W 1/2 NS 1,000 ML IV SCH (11:15)
[2016-07-17] MEDS ORDERED: INSULIN LISPRO 100 UNIT/ML SC ONE (11:30)
[2016-07-17] MEDS ORDERED: PROPOFOL 200 MG/20 ML VIAL ONE (13:13)
--- NOTE | 2016-07-17 13:37 | SUROPNOTE ---
[facility] Operative Report - Surgery BRIEF EGD NOTE (full note dictate) Indication:post hemorrhagic anemia Complications: none acutely Meds: per anesthesia Findings: 1. mild distal esophagitis 2. moderate antral gastritis - bx'd 3. moderate duodenitis, in 1st portion 4. remaining duodenum normal. IMPRESSION/RECS: 1. GI BLEED - possibly from self limited bleeding related to gastro-duodenitis - possible related to small bowel or colonic source - H/H stabilized - given age, comorbidities (particularly pulmonary comorbidity) will defer any additional w/u at this time. - if patient has evidence of further, overt, gi blood losses, may need to consider colonoscopy or Tagged Cell scan - hopefully, bleeding will be self-limited, given the risks that are part of a more intensive work-up - can monitor H/H and vitals and consider merits of colonoscopy over the next few days - continue PPI PO BID - ok to advance diet - will follow, call with questions
--- NOTE | 2016-07-17 14:07 | PDPCPN ---
Palliative Care Progress Note Assessment/Plan: Referring provider: Dr Dominguez Reason for consult: Complex medical decision making Symptom control HPI: Dodie Huston is a 81 yo female with PMH Dm 2, HTN, HLD, diastolic CHF, CAD, pulmonary embolism, and morbid obesity admitted to the hospital with facial pain , dyspnea and cough. CXR with LLL PNA and pulmonary edema. Treated with antibiotics and lasix. Echo with new lower EF 30%. Also + for coronavirus. Hospitalization complicated by gi bleed and anemia. Ongoing cardiac work up. Palliative care consulted for complex medical decision making. Met with 6 daughters with the help of conference interpreter first inside the room with Dodie then outside of the room without Dodie. Discussed her current medical conditions. Per children Dodie has always been fearful of and has not even wanted to talk about other people she has seen . They feel she is anxious and sad in the hospital because she wants to be at home with her family. She has been wheelchair dependent for some time due to "bad knees". Her daughters take care of her and she travels between [place] and [place] to visit family. They feel she has a pretty good quality of life being at home. We discussed her being at risk for continued complications including . The family has hopes she can improve from this hospitalization to go back home. They state she would not want to in the hospital and they want to do whatever they can to bring her home. We did discuss option of not rehospitalizing if her wishes are to remain at home and allow for a natural course of her life. They feel she would want continued hospitalization if needed as she wishes to live longer. Assessment: Physical: - Pain: chronic knee pain - tylenol PRN - Dyspnea: mild - on nebs and oxygen - mucinex PRN Emotional/psychological: anxious at times and sad when in the hospital Advanced Care Planning: Is patient decisional?: Yes Code Status: Full MD POA: no MDPOA decided on. Plan: Still wanting aggressive medical interventions. Will have ongoing discussions as needed. Subjective: I want to feel better Objective: Social History: Lives in [place]. Has 10 children all very involved. Medication list reviewed ROS: General: fatigue, weakness ENT: facial pain Resp: dyspnea, cough GI: poor appetite- improved today : negative MS: negative Skin: negative Neuro: negative Psych: anxiety at times Functional assessment: PPS: 40% Functional status: dependent on ADLs, IADLs Vital Signs Temp Pulse Resp BP Pulse Ox 36.6 C 75 12 124/58 H 94 07/17/16 07:21 07/17/16 07:21 07/17/16 07:21 07/17/16 08:20 07/17/16 07:21 Laboratory Results 07/17/16 05:00 07/17/16 05:00 07/16/16 07/17/16 07/18/16 05:59 05:59 05:59 Intake Total 240 Balance 240 PT 14.4 SEC (12.0-15.0) 07/06/16 07:15 INR 1.13 (0.83-1.16) 07/06/16 07:15 Physical Exam - Physical Exam General Appearance: alert, no apparent distress Respiratory: No respiratory distress, No accessory muscle use Skin: normal color, warm/dry Extremities: pedal edema Neuro/Psych: alert, oriented x 3 ICD10 Worksheet Patient Problems: Problems Problem Status Onset Hypoxia Acute Palliative care encounter Acute Pulmonary edema Acute Chronic Disease Mgmt/Transitional Care Acute - ICD10 Problem Qualifiers (1) Palliative care encounter
--- NOTE | 2016-07-17 14:16 | GPN ---
[f rep st] PROCEDURE NOTE PROCEDURE: Upper endoscopy. INDICATIONS: Melena and post hemorrhagic anemia. MEDICATIONS: Anesthesia was administered by our anesthesia colleagues. This was deemed necessary d ue to the patient's chronic comorbid illness, advanced age, obesity, and hypoventilation. COMPLICATIONS: None acutely. DESCRIPTION OF PROCEDURE: After informed consent was obtained with the patient, using a [employer] catheterization laboratory technician, she was brought to the endoscopy suite. She was placed in the left lateral decub itus position and monitored anesthesia care was administered by our anesthesia colleagues. Endoscop e was advanced through the mouth into the proximal duodenum. Retroflex views in the gastric cardia were obtained. FINDINGS: 1. Mild distal esophagitis. 2. Zvopmvcu-gw-ihxhok antral gastritis, this was biopsied. 3. Dwqldcas-yb-dmuqwf proximal duodenal bulb inflammation was noted. The remainder of the duodenum appeared normal. 4. There was no obvious bleeding lesion. There were no ulcers or AVMs or Dieulafoy lesions discove red. There was some heme material in the gastric antrum. IMPRESSION AND RECOMMENDATIONS: Post hemorrhagic anemia. It is possible that she has had some ongo ing bleeding related to her uogohdsl-tw-ymujhh gastroduodenitis. There were no obviously treatable lesions discovered at today's upper endoscopy. The differential could also include small bowel lesi ons or colonic lesions. At this time, given her overall tenuous health status, I would like to avoid additional invasive wor kup for bleeding unless it becomes clinically significant again. For now, she should remain on a pr oton pump inhibitor. We will advance her diet. If she has evidence of repeat bleeding, we may need to consider additional colonic or small bowel evaluation. Her cardiopulmonary status, at the curre nt time, however makes this additional invasive workup potentially hazardous, and therefore, perhaps not worthwhile unless the patient has more obvious clinical evidence of clinically significant blee ding. /[id number]/MODL
[2016-07-18] MEDS: NYSTATIN SUSP 500000 UNIT/5 ML UDCUP PO SCH ×4 (05:17→20:43)
[2016-07-18 05:54] LABS: % IMMATURE GRANULYOCYTES 0.6 % (0.0-1.1); ABSOLUTE IMMATURE GRANULOCYTES 0.03 10^3/uL (0.00-0.10); ADD DIFF? NO; ADD MORPH? NO; ADD SCAN? NO; ATYPICAL LYMPHOCYTE FLAG 10 (0-99); FRAGMENT RBC FLAG 0 (0-99); HEMATOCRIT 22.9 % (38.0-47.0); HEMOGLOBIN 7.2 g/dL (12.6-16.3); LEFT SHIFT FLG 0 (0-99); LIPEMIA HEMOLYSIS FLAG 80 (0-99); MEAN CELL HEMOGLOBIN 32.4 pg (27.9-34.1); MEAN CELL HEMOGLOBIN CONCENTR. 31.4 g/dL (32.4-36.7); MEAN CELL VOLUME 103.2 fL (81.5-99.8); MEAN PLATELET VOLUME 10.3 fL (8.7-11.7); PLATELET CLUMPS FLAG 0 (0-99); PLATELET COUNT 296 10^3/uL (150-400); RED BLOOD CELL COUNT 2.22 10^6/uL (4.18-5.33); RED CELL DISTRIBUTION WIDTH 13.8 % (11.5-15.2)
[2016-07-18 06:12] LABS: ANION GAP 11 mEq/L (8-16); CALCIUM 8.6 mg/dL (8.5-10.4); CARBON DIOXIDE 28 mEq/l (22-31); CHLORIDE 102 mEq/L (97-110); CREATININE 1.2 mg/dL (0.6-1.0); GLOMERULAR FILTRATION RATE 43; GLUCOSE 121 mg/dL (70-100); POTASSIUM 3.8 mEq/L (3.5-5.2); SODIUM 141 mEq/L (134-144)
--- NOTE | 2016-07-18 08:49 | HOSPPROG ---
Hospitalist Progress Note Assessment/Plan: Patient is an 81/F with history of diastolic CHF, CAD, HTN, HLD, DM2, obesity who presents to the ED on July 06 with complaint of R facial electrical-type pain. On arrival to the ED, patient was found to be significantly hypoxic, with CT chest revealing mild-moderate pulmonary edema. * Acute on chronic respiratory failure - hypoxic and hypercarbic -now on 5 liters * Septic shock - s/p pressors -resolved * Pneumonia -was treated with ceftriaxone, azithromycin * Coronavirus + PCR - respiratory isolation * Metabolic encephalopathy - resolved * Acute on chronic CHF exacerbation - EF 30% - new low EF -volume status better - change Lasix to PO -wall motion abnormality - no previous cath -Lexiscan stress test was recommended * Suspect IAN - outpatient sleep study * GIB with ABL anemia -initially reported as dark stool, now red - heme + -EGD showed gastitis -ASA and Lovenox on hold -PPI -when I asked the patient about transfusion with the simulation tech, she said "no" *renal insufficiency creat trending up * Trigeminal neuralgia -Tegretol -no further c/o facial pain * Staph epi + BC - contaminant * CAD - borderline troponin * DM II * Morbid obesity BMI 49 -suspect underlying chronic respiratory failure from Obesity Hypoventilation * Enlarging thyroid mass -outpatient follow-up Plan: Very appreciative to Palliative care team/ Deanne. After multiple discussions with the patient and family, the patient does not want to be in the hospital. She does not want a blood transfusion or further procedures. The patient tells me her daughters will take care of her. Plan is for hospice evaluation on sun @ 10 a.m. The daughters would like us not to talk to their mom about dying as they are aware, her condition is declining. Subjective: Dodie has no complaints/ wants to go home. Objective: Vital Signs Temp Pulse Resp BP Pulse Ox 36.6 C 67 18 110/48 L 92 07/18/16 08:00 07/18/16 08:00 07/18/16 08:00 07/18/16 08:00 07/18/16 08:00 Laboratory Results 07/18/16 05:05 07/18/16 05:05 07/17/16 07/18/16 07/19/16 05:59 05:59 05:59 Intake Total 240 1325 Balance 240 1325 PT 14.4 SEC (12.0-15.0) 07/06/16 07:15 INR 1.13 (0.83-1.16) 07/06/16 07:15 - Physical Exam Constitutional: no apparent distress, not in pain, chronically ill appearing, obese Eyes: PERRL Ears, Nose, Mouth, Throat: hearing normal Cardiovascular: regular rate and rhythym Respiratory: no respiratory distress, other (very poor respiratory effort) Gastrointestinal: normoactive bowel sounds Skin: warm Musculoskeletal: generalized weakness Neurologic: AAOx3 Psychiatric: interacting appropriately ICD10 Worksheet Patient Problems: Problems Problem Status Onset Hypoxia Acute Palliative care encounter Acute Pulmonary edema Acute Chronic Disease Mgmt/Transitional Care Acute
[2016-07-18] MEDS: INSULIN LISPRO 100 UNIT/ML SC SCH ×3 (10:07→17:29)
[2016-07-18] MEDS: EZETIMIBE 10 MG TAB PO SCH (10:09)
[2016-07-18] MEDS: FUROSEMIDE 40 MG TAB PO SCH ×2 (10:09→15:25)
[2016-07-18] MEDS: ATORVASTATIN CALCIUM 10 MG TAB PO SCH (10:09)
[2016-07-18] MEDS: CALCITRIOL 0.25 MCG CAP PO SCH (10:09)
[2016-07-18] MEDS: carBAMazepine 200 MG TAB PO SCH ×2 (10:12→20:44)
[2016-07-18] MEDS: metFORMIN HCL 850 MG TAB PO SCH ×2 (10:15→17:44)
[2016-07-18] MEDS: LISINOPRIL 5 MG TAB PO SCH (10:34)
--- NOTE | 2016-07-18 11:33 | SOAPPROG ---
SOAP Progress Note Assessment/Plan: Assessment: 1. Post-hemorrhagic anemia - etiology? - EGD with moderate gastroduodenitis w/o active bleeding - stools turning to normal color - H/H stable, while low Plan: 1. Post-hemorrhagic anemia - source? - defer any additional w/u at this time - consider colonoscopy is recurrent clinically significant BRBPR occurs - recommend PPI BID for a few weeks, then QD thereafter - gastric bx pending - my office will contact family/patient with result - will sign off, call with questions 07/18/16 11:30 Subjective: CC: I am feeling better S: stools turning green feeling more energy breathing better no fever no abd pain no vomiting Objective: Vital Signs Temp Pulse Resp BP Pulse Ox 36.6 C 67 18 110/48 L 92 07/18/16 08:00 07/18/16 08:00 07/18/16 08:00 07/18/16 08:00 07/18/16 08:00 Laboratory Results 07/18/16 05:05 07/18/16 05:05 07/17/16 07/18/16 07/19/16 05:59 05:59 05:59 Intake Total 240 1325 Balance 240 1325 PT 14.4 SEC (12.0-15.0) 07/06/16 07:15 INR 1.13 (0.83-1.16) 07/06/16 07:15 Physical Exam - Physical Exam General Appearance: WD/WN, alert EENT: PERRL/EOMI Neck: non-tender Respiratory: chest non-tender, No stridor, No wheezing Cardiac/Chest: regular rate, rhythm Abdomen: normal bowel sounds, non-tender, soft Skin: normal color Extremities: normal range of motion Neuro/Psych: no motor/sensory deficits ICD10 Worksheet Patient Problems: Problems Problem Status Onset Hypoxia Acute Palliative care encounter Acute Pulmonary edema Acute Chronic Disease Mgmt/Transitional Care Acute
[2016-07-18] MEDS: PANTOPRAZOLE SODIUM 40 MG TAB PO SCH ×2 (12:43→20:44)
[2016-07-18] MEDS: PANTOPRAZOLE SODIUM 40 MG in NS 100 ML IV SCH (12:50)
--- NOTE | 2016-07-18 14:49 | PDPCPN ---
Palliative Care Progress Note Assessment/Plan: HPI: Dodie Huston is a 81 yo female with PMH Dm 2, HTN, HLD, diastolic CHF, CAD, pulmonary embolism, and morbid obesity admitted to the hospital with facial pain , dyspnea and cough. CXR with LLL PNA and pulmonary edema. Treated with antibiotics and lasix. Echo with new lower EF 30%. Also + for coronavirus. Hospitalization complicated by gi bleed and anemia. S/p EGD with gastritis. Ongoing cardiac work up. Palliative care consulted for complex medical decision making. Met with family at the bedside. Nitin was fatigued but clearly stated her wish to be at home and not undergo any procedures or tests. She stated "it is up to God's will" what will happen with her. She does know she wants to be at home no matter what as that is where she has the best quality of life. She asked we continue our conversation outside with her family and MDPOA so she could rest. Spoke at length with her family about her overall medical condition. Her family feels they have seen her body failing and she is not recovering like she once did. We spoke about the limitations of medical interventions in helping provide comfort or quality of life at the end of life. Shared her life expectancy is likely only months due to her heart failure and lung failure. Her family decided they do not see medical interventions being of benefit and would like her to at home surrounded by family. We discussed options of hospice care which they would like to have at home. Spent >60 minutes in discussion with patient and family. Assessment: Physical: - Pain: chronic knee pain - tylenol PRN - Dyspnea: mild - on nebs and oxygen - mucinex PRN Emotional/psychological: anxious at times and sad when in the hospital Advanced Care Planning: Is patient decisional?: Yes Code Status: Full MD POA: would like her daughter Radha Plan: Home with hospice. Oleg will meet with family at 10 AM Sunday. Patient does not want to know any details and prefers just to be at home with "God's will". 07/18/16 16:37 Subjective: I'm very tired Objective: Vital Signs Temp Pulse Resp BP Pulse Ox 36.6 C 67 18 110/48 L 92 07/18/16 08:00 07/18/16 08:00 07/18/16 08:00 07/18/16 08:00 07/18/16 08:00 Laboratory Results 07/18/16 05:05 07/18/16 05:05 07/17/16 07/18/16 07/19/16 05:59 05:59 05:59 Intake Total 240 1325 Balance 240 1325 PT 14.4 SEC (12.0-15.0) 07/06/16 07:15 INR 1.13 (0.83-1.16) 07/06/16 07:15 Physical Exam - Physical Exam General Appearance: alert, no apparent distress Respiratory: No respiratory distress, No accessory muscle use Skin: normal color, warm/dry Extremities: pedal edema Neuro/Psych: alert, oriented x 3 ICD10 Worksheet Patient Problems: Problems Problem Status Onset Hypoxia Acute Palliative care encounter Acute Pulmonary edema Acute Chronic Disease Mgmt/Transitional Care Acute - ICD10 Problem Qualifiers (1) Palliative care encounter
[2016-07-18] MEDS: ACETAMINOPHEN 325 MG TAB PO PRN (21:32)
[2016-07-19] MEDS: NYSTATIN SUSP 500000 UNIT/5 ML UDCUP PO SCH ×2 (05:22→13:59)
[2016-07-19 08:10] VITALS: BP 128/54; PULSE 72; RESP 24; TEMP 97.8; O2SAT 98
[2016-07-19] MEDS: EZETIMIBE 10 MG TAB PO SCH (08:18)
[2016-07-19] MEDS: PANTOPRAZOLE SODIUM 40 MG TAB PO SCH (08:19)
[2016-07-19] MEDS: FUROSEMIDE 40 MG TAB PO SCH ×2 (08:19→14:00)
[2016-07-19] MEDS: INSULIN LISPRO 100 UNIT/ML SC SCH ×2 (08:19→14:00)
[2016-07-19] MEDS: CALCITRIOL 0.25 MCG CAP PO SCH (08:19)
[2016-07-19] MEDS: metFORMIN HCL 850 MG TAB PO SCH (08:19)
[2016-07-19] MEDS: ATORVASTATIN CALCIUM 10 MG TAB PO SCH (08:19)
[2016-07-19] MEDS: carBAMazepine 200 MG TAB PO SCH (08:19)
--- NOTE | 2016-07-19 12:08 | PDIAF ---
- Diagnosis Diagnosis: CHF Code Status: Full Code - Medication Management Discharge Medications: Medications to Continue on Transfer Aspirin 81 mg PO DAILY 07/06/16 [Last Taken 07/05/16] Calcitriol [Calcitriol (*)] 0.25 mcg PO DAILY 07/06/16 [Last Taken Unknown] Ranitidine HCl [Zantac] 150 mg PO DAILY PRN 07/06/16 [Last Taken Unknown] Valgion Clt 125mg/25mg 1 tab PO BID 07/06/16 [Last Taken 07/05/16] Vitamin B Complex [B Complex] 1 each PO DAILY 07/06/16 [Last Taken Unknown] metFORMIN HCL [Glucophage 850 mg (*)] 850 mg PO BIDMEAL 07/06/16 [Last Taken ] Acetaminophen [Tylenol 325mg (*)] 650 mg PO Q4 PRN #0 tab 07/19/16 [Last Taken Unknown] Carvedilol [Coreg (*)] 3.125 mg PO BIDMEAL #60 tab 07/19/16 [Last Taken Unknown] Furosemide [Lasix 40 MG (*)] 40 mg PO BIDDIUR #60 tab 07/19/16 [Last Taken Unknown] Lisinopril [Zestril 5 mg (*)] 5 mg PO DAILY #30 tab 07/19/16 [Last Taken Unknown ] Sodium Cl Nasal [Leslie Aguanga (*)] 1 spray EACHNARE PRN PRN #0 btl 07/19/16 [ Last Taken Unknown] carBAMazepine [Tegretol] 200 mg PO BID #60 tab 07/19/16 [Last Taken Unknown] traZODone [traZODONE 50MG (*)] 50 mg PO HS PRN #30 tab 07/19/16 [Last Taken Unknown] Discharge Medications: Refer to the Discharge Home Medication list for PRN reason. PICC Care - Routine: N/A - Orders Services needed: Home Care, Physical Therapy, Occupational Therapy Home Care Face to Face: I certify that this patient was under my care and that I had the required [id number] encounter meeting the encounter requirements on the discharge day. My findings support the fact that the patient is homebound as defined in CMS Chapter 7 Medicare Benefits Manual 30.1.1, The condition of the patient is such that there exists a normal inability to leave home and consequently, leaving home would require a considerable and taxing effort. Diet Recommendation: sodium restricted - Follow Up Care Current Providers and Referrals: [facility] [Other] - As per Instructions
--- NOTE | 2016-07-19 13:37 | PDPCPN ---
Palliative Care Progress Note Assessment/Plan: HPI: Dodie Huston is a 81 yo female with PMH Dm 2, HTN, HLD, diastolic CHF, CAD, pulmonary embolism, and morbid obesity admitted to the hospital with facial pain , dyspnea and cough. CXR with LLL PNA and pulmonary edema. Treated with antibiotics and lasix. Echo with new lower EF 30%. Also + for coronavirus. Hospitalization complicated by gi bleed and anemia. S/p EGD with gastritis. Ongoing cardiac work up. Palliative care consulted for complex medical decision making. Hospice met with family this morning but they decided against hospice because for their understanding the only way she can be on hospice is to "guarantee we will not bring her back to the hospital". They feel they cannot guarantee this because "it is up to God". They do not feel like they can limit their options as then "we will be failing to care for our mother". We discussed at length that Nitin will not improve and has only months prognosis. They understand and agree. Also discussed at this time hospitalizations do not seem to benefit Nitin and she actually does better with less medical interventions. They stated "deep down we know we will not bring her back to the hospital" due to this observation. They are in talks with themselves about possibly having her move down to [place] for her remaining months and the family will work to assure her comfort at home. Assessment: Physical: - Pain: chronic knee pain - tylenol PRN - Dyspnea: mild - on nebs and oxygen - mucinex PRN Emotional/psychological: anxious at times and sad when in the hospital Advanced Care Planning: Is patient decisional?: Yes Code Status: Full MD POA: would like her daughter Radha Plan: Family understands her prognosis and agrees she does not want hospitalizations or further tests/procedures. They do not want hospice care at this time as they feel they cannot say for sure that she would not come back to the hospital or not. They are leaving it "up to God" and have hope she will feel better. They understand her prognosis is months. Subjective: I am happy to be going home Objective: Vital Signs Temp Pulse Resp BP Pulse Ox 36.6 C 72 24 H 128/54 H 98 07/19/16 08:00 07/19/16 08:00 07/19/16 08:00 07/19/16 08:00 07/19/16 08:00 Laboratory Results 07/18/16 05:05 07/18/16 05:05 07/18/16 07/19/16 07/20/16 05:59 05:59 05:59 Intake Total 1325 300 Balance 1325 300 PT 14.4 SEC (12.0-15.0) 07/06/16 07:15 INR 1.13 (0.83-1.16) 07/06/16 07:15 Physical Exam - Physical Exam General Appearance: alert, no apparent distress Respiratory: No respiratory distress, No accessory muscle use Skin: normal color, warm/dry Extremities: pedal edema Neuro/Psych: alert, oriented x 3 ICD10 Worksheet Patient Problems: Problems Problem Status Onset Hypoxia Acute Palliative care encounter Acute Pulmonary edema Acute Chronic Disease Mgmt/Transitional Care Acute - ICD10 Problem Qualifiers (1) Palliative care encounter
--- NOTE | 2016-07-19 14:47 | GDS ---
[f rep st] DISCHARGE SUMMARY DISCHARGE DIAGNOSES: 1. Acute on chronic hypoxemia. 2. Septic shock. 3. Pneumonia. 4. Coronavirus. 5. Metabolic encephalopathy. 6. Acute on chronic congestive heart failure exacerbation. 7. Obstructive sleep apnea. 8. Gastrointestinal bleeding with acute blood loss anemia. 9. Renal insufficiency. 10. Trigeminal neuralgia. 11. Morbid obesity. 12. Enlarged thyroid mass. PHYSICAL EXAMINATION: GENERAL: The patient is alert, up in the chair. VITAL SIGNS: Afebrile at 3 6.6, pulse is 72, respiratory rate 24, she is saturating greater than 90% on 5 L, blood pressure is 128/54. I have seen and evaluated the patient on the day of discharge. HOSPITAL COURSE: The patient is an 81-year-old female with multiple chronic and acute medical probl ems. She was evaluated and diagnosed with: 1. Acute on chronic respiratory failure. This is multifactorial. The patient is close to baseline oxygen needs and will be discharged with home oxygen therapy. 2. Septic shock. This is treated and resolved. 3. Pneumonia. The patient has been treated with Rocephin as well as azithromycin during this hospi talization. 4. Coronavirus. She has been placed in isolation. 5. Metabolic encephalopathy. This has resolved. 6. Acute on chronic congestive heart failure. Echocardiogram during this hospitalization demonstra jaden an ejection fraction of 30%. She has been diuresed and provided prescriptions for diuretic medi cation at the time of disposition. 7. Gastrointestinal bleed with acute blood loss anemia. EGD showed gastroenteritis. The patient's aspirin and Lovenox were held. She was continued on a proton pump inhibitor. Blood transfusion wa s offered to the patient during this hospitalization; however, she refused. She is hemodynamically stable at the time of disposition. 8. Renal insufficiency. This is stable with no identifiable needs. 9. Morbid obesity. 10. Enlarging thyroid mass. The patient has been instructed to follow up outpatient if she wishes. DISPOSITION: The patient has received multiple consultations from Palliative Care as well as Hospic e during this hospitalization. She refuses discharged with hospice care. She will be discharged [facility] home health care. She will follow up with her primary care physician outside the hospital. CONDITION ON DISCHARGE: The patient, as well as the family, have been informed that her condition i s grave and it is recommended that she have a palliative care team in place. The family is not in a greement with this plan and wishes to take the patient home. They are aware that she is in decrease d health and not likely to make a full recovery from this acute condition. TIME SPENT: I spent greater than 35 minutes in the care, coordination, and management of this patie nt's disposition. /[id number]/MODL
== END 2016-07-19 17:13 | disposition home health service (06) | DRG 291 ==
LOC: F2W 07-06 04:36 → F2N 07-09 11:17 → F3E 07-14 11:26
PROVIDERS: ADMIT Internal Medicine; ATTEND Student in an Organized Health Care Education/Training Program
PROC: 02HV33Z Insertion of Infusion Device into Superior Vena Cava, Percutaneous Approach (ICD-10-PCS; 2016-07-09)
PROC: 0DB68ZX Excision of Stomach, Via Natural or Artificial Opening Endoscopic, Diagnostic (ICD-10-PCS; principal; 2016-07-17 13:00)
DX: I11.0 Hypertensive heart disease with heart failure (principal); I50.33 Acute on chronic diastolic (congestive) heart failure; J96.21 Acute and chronic respiratory failure with hypoxia; A41.9 Sepsis, unspecified organism; R65.21 Severe sepsis with septic shock; J18.9 Pneumonia, unspecified organism; G93.41 Metabolic encephalopathy; B34.2 Coronavirus infection, unspecified; K29.91 Gastroduodenitis, unspecified, with bleeding; D62 Acute posthemorrhagic anemia; E87.5 Hyperkalemia; B37.0 Candidal stomatitis; G50.0 Trigeminal neuralgia; I25.10 Atherosclerotic heart disease of native coronary artery without angina pectoris; E11.9 Type 2 diabetes mellitus without complications; G47.33 Obstructive sleep apnea (adult) (pediatric); N28.9 Disorder of kidney and ureter, unspecified; E07.9 Disorder of thyroid, unspecified; E66.2 Morbid (severe) obesity with alveolar hypoventilation; Z68.42 Body mass index [BMI] 45.0-49.9, adult; Z86.711 Personal history of pulmonary embolism
CPT/HCPCS: 82947-QW; 92526-GN; 92610-GN; 92611-GN; 96374; 97116-GP; 97161-GP; 97165-GO; 97530-GO; 97530-GP; 97535-GO; A9585; C1750; C1751; C1769; G8978-GP-CJ; G8979-GP-CJ; G8987-GO-CK; G8988-GO-CJ; G8988-GO-CK; G8996-GN-CI; G8996-GN-CK; G8997-GN-CI; G8998-GN-CI; J0360; J0610; J0696; J1120; J1650; J1815; J2405; J2543; J2704; J2785; J3370; Q9967

== ENCOUNTER 2016-08-24 02:05 | Inpatient (IN) | payer OTHER, MEDICAID ==
[~2016-08-24 02:05] MED LIST: ALBUTEROL 3 ML DEYVIAL ONE; IPRATROPIUM/ALBUTEROL 3 ML DEYVIAL ONE; methylPREDNISolone SOD SUCC 125 MG/2 ML VIAL ONE
[2016-08-24] MEDS ORDERED: NITROGLYCERIN/D5W 50 MG/250 ML BOTTLE IV ONE (02:12)
[2016-08-24] MEDS ORDERED: FUROSEMIDE 100 MG/10 ML VIAL ONE (02:17)
[2016-08-24] MEDS ORDERED: ASPIRIN 81 MG CHEWABLE TAB PO ONE (02:17)
--- NOTE | 2016-08-24 02:17 | EDPHY ---
H & P Stated Complaint: shortness of breath HPI/ROS: HPI The patient presents brought in by ambulance emergently for acute onset of shortness of breath which began at 11:30 a.m. p.m. linda. She had a good day today according to her daughter. She went to her doctor's appointment. She was on about 2 L of oxygen. However later in the afternoon she complained of shortness of breath so they increased her oxygen to about 5 L. they noticed some gurgling noises. Then at 11 30 her breathing suddenly got worse and she appeared very anxious. She did not complain of any other symptoms such as chest pain or cough. She has been taking all of her medications as prescribed. She has not had any leg swelling. Upon arrival of paramedics, the patient sat was 68% and she was breathing at a respiratory rate of 48. They started her on CPAP with nebs in line with improvement of her oxygenation to 78%. REVIEW OF SYSTEMS Constitutional: No fever, no chills. Eyes: No discharge. ENT: No sore throat. Cardiovascular: No chest pain, no palpitations. Respiratory: No cough, positive for shortness of breath Gastrointestinal: No abdominal pain, no vomiting. Genitourinary: No hematuria. Musculoskeletal: No back pain. Skin: No rashes. Neurological: No headache. PMHx: Diastolic heart failure, hypoxemia on home oxygen, history of pneumonia, diabetes Soc Hx: Lives at home with her daughters PHYSICAL General Appearance: Pale, cool, diaphoretic in acute respiratory distress with CPAP in place Eyes: Pupils equal and round no pallor or injection ENT, Mouth: Mucous membranes moist Respiratory: Tachypneic, retractions are present, coarse breath sounds throughout all lung [place] Cardiovascular: Tachycardic rate Gastrointestinal: Abdomen is soft and non-tender, no masses, bowel sounds normal Neurological: A&O, moves all extremities Skin: Warm and dry, no rashes Musculoskeletal: Neck is supple non tender Extremities: symmetrical, full range of motion Psychiatric: There is no agitation Source: Family, EMS, [employer] - Personal History Tetanus Vaccine Date: not known - Medical/Surgical History Hx Asthma: No Hx Chronic Respiratory Disease: No Hx Diabetes: Yes Hx Cardiac Disease: No Hx Renal Disease: No Hx Cirrhosis: No Hx Alcoholism: No Hx HIV/AIDS: No Hx Splenectomy or Spleen Trauma: No Other PMH: HTN, diabetes, bronchitis, chf - Social History Smoking Status: Never smoked Constitutional: Initial Vital Signs Heart Rate 97 08/24/16 02:15 Respiratory Rate 24 H 08/24/16 02:15 Blood Pressure 170/122 H 08/24/16 02:15 O2 Sat (%) 94 08/24/16 02:15 O2 Delivery Mode Bi-Pap Allergies/Adverse Reactions: No Known Allergies Allergy (Unverified 07/05/16 23:26) Home Medications: Medication Instructions Recorded Aspirin 81 mg PO DAILY 07/06/16 Calcitriol [Calcitriol (*)] 0.25 mcg PO DAILY 07/06/16 Ranitidine HCl [Zantac] 150 mg PO DAILY PRN 07/06/16 Valgion Clt 125mg/25mg 1 tab PO BID 07/06/16 Vitamin B Complex [B Complex] 1 each PO DAILY 07/06/16 metFORMIN HCL [Glucophage 850 mg 850 mg PO BIDMEAL 07/06/16 (*)] Acetaminophen [Tylenol 325mg (*)] 650 mg PO Q4 PRN #0 tab 07/19/16 Carvedilol [Coreg (*)] 3.125 mg PO BIDMEAL #60 tab 07/19/16 Furosemide [Lasix 40 MG (*)] 40 mg PO BIDDIUR #60 tab 07/19/16 Lisinopril [Zestril 5 mg (*)] 5 mg PO DAILY #30 tab 07/19/16 Sodium Cl Nasal [[place] (*)] 1 spray [place] PRN PRN #0 btl 07/19/16 carBAMazepine [Tegretol] 200 mg PO BID #60 tab 07/19/16 traZODone [traZODONE 50MG (*)] 50 mg PO HS PRN #30 tab 07/19/16 Medical Decision Making - Diagnostics EKG Interpretation: EKG: Complete interpretation has been separately recorded in the [facility] archive. Summary impression: Sinus tachycardia with left bundle branch block, prolonged QT interval Imaging Results: Chest x-ray one view demonstrates cardiomegaly with bilateral fluffy infiltrates consistent with CHF exacerbation ED Course/Re-evaluation: I met the paramedics at the bedside to obtain report. We immediately put the patient on our BiPAP machine with nebs in line. Bedside ultrasound performed which suggested pulmonary edema and CHF exacerbation. Thus, nitroglycerin drip was initiated, patient was initially hypertensive. She was given Lasix 80 mg IV as well. With these interventions, her oxygen saturations improved to the 90s and her work of breathing diminished. I-STAT was performed showing hyperkalemia with a K of 6.4. EKG does show a wide rhythm which could be related to hyperkalemia. The patient was treated for this with calcium insulin, albuterol. I discussed the patient's history and plans for treatment with her daughter wheezing precision millwright. I have reviewed old records, it appears the patient is quite ill at baseline. Palliative Care has been involved and hospice has been discussed. However, it seems that the patient is currently not on hospice. I consulted with the hospitalist Dr. Nenita Loomis. We plan to admit the patient to the ICU. I have ordered the patient a bed there. Differential Diagnosis: This is an 81-year-old female with history of diastolic CHF, diabetes, obstructive sleep apnea, chronic hypoxemia, morbid obesity who presents brought in by ambulance for acute onset of shortness of breath. Differential diagnosis includes flash pulmonary edema, pneumonia, COPD exacerbation, pulmonary embolism. Critical Care Time: CRITICAL CARE Critical care time spent by me, Dr. Agrawal, exclusively with this patient was 60 minutes, exclusive of PA time and exclusive of procedures. The organ system at risk was cardiac and electrolyte and I gave nitroglycerin drip, Lasix, insulin, bicarbonate, calcium, albuterol to prevent worsening of the patients condition. - Data Points Laboratory Results: Laboratory Results 08/24/16 02:14 08/24/16 02:14 08/24/16 08/24/16 08/24/16 02:20 02:14 02:14 WBC RBC Hgb POC Hgb 13.9 gm/dL gm/dL (12.3-15.9) Hct POC Hct 41 % % (35.5-47.5) MCV MCH MCHC RDW Plt Count MPV Neut % (Auto) Lymph % (Auto) [place] % (Auto) Eos % (Auto) Baso % (Auto) Nucleat RBC Rel Count Absolute Neuts (auto) Absolute Lymphs (auto) Absolute Monos (auto) Absolute Eos (auto) Absolute Basos (auto) Absolute Nucleated RBC Immature Gran % Immature Gran # PT 13.7 SEC SEC (12.0-15.0) INR 1.06 (0.83-1.16) POC Sodium 132 mEq/L L mEq/L (134-144) Sodium POC Potassium 6.2 mEq/L H mEq/L (3.3-5.0) Potassium POC Chloride 101 mEq/L mEq/L (96-108) Chloride Carbon Dioxide Anion Gap POC BUN 48 mg/dL H mg/dL (7-23) BUN Creatinine POC Creatinine 1.3 mg/dL H mg/dL (0.6-1.2) Estimated GFR Glucose POC Glucose 542 mg/dL H* mg/dL (70-100) Hemoglobin A1c Pending Estim Average Glucose Pending Calcium Troponin I NT-Pro-B Natriuret Pep 08/24/16 08/24/16 02:14 02:14 WBC 7.82 10^3/uL 10^3/uL (3.80-9.50) RBC 3.89 10^6/uL L 10^6/uL (4.18-5.33) Hgb 12.7 g/dL g/dL (12.6-16.3) POC Hgb Hct 39.1 % % (38.0-47.0) POC Hct MCV 100.5 fL H fL (81.5-99.8) MCH 32.6 pg pg (27.9-34.1) MCHC 32.5 g/dL g/dL (32.4-36.7) RDW 12.7 % % (11.5-15.2) Plt Count 369 10^3/uL 10^3/uL (150-400) MPV 9.7 fL fL (8.7-11.7) Neut % (Auto) 68.4 % % (39.3-74.2) Lymph % (Auto) 28.1 % % (15.0-45.0) [place] % (Auto) 2.2 % L % (4.5-13.0) Eos % (Auto) 0.0 % L % (0.6-7.6) Baso % (Auto) 0.4 % % (0.3-1.7) Nucleat RBC Rel Count 0.0 % % (0.0-0.2) Absolute Neuts (auto) 5.35 10^3/uL 10^3/uL (1.70-6.50) Absolute Lymphs (auto) 2.20 10^3/uL 10^3/uL (1.00-3.00) Absolute Monos (auto) 0.17 10^3/uL L 10^3/uL (0.30-0.80) Absolute Eos (auto) 0.00 10^3/uL L 10^3/uL (0.03-0.40) Absolute Basos (auto) 0.03 10^3/uL 10^3/uL (0.02-0.10) Absolute Nucleated RBC 0.00 10^3/uL 10^3/uL (0-0.01) Immature Gran % 0.9 % % (0.0-1.1) Immature Gran # 0.07 10^3/uL 10^3/uL (0.00-0.10) PT INR POC Sodium Sodium 133 mEq/L L mEq/L (134-144) POC Potassium Potassium 6.4 mEq/L H* mEq/L (3.5-5.2) POC Chloride Chloride 100 mEq/L mEq/L (97-110) Carbon Dioxide 18 mEq/l L mEq/l (22-31) Anion Gap 15 mEq/L mEq/L (8-16) POC BUN BUN 49 mg/dL H mg/dL (7-23) Creatinine 1.3 mg/dL H mg/dL (0.6-1.0) POC Creatinine Estimated GFR 39 Glucose 571 mg/dL H* mg/dL (70-100) POC Glucose Hemoglobin A1c Estim Average Glucose Calcium 8.9 mg/dL mg/dL (8.5-10.4) Troponin I 0.018 ng/mL ng/mL (0-0.034) NT-Pro-B Natriuret Pep 5890 pg/mL H pg/mL (0-450) Medications Given: Discontinued Medications Albuterol (Proventil Neb) 10 ml IH CONT ONE Stop: 08/24/16 02:32 Last Admin: 08/24/16 02:37 Dose: 10 ml Aspirin (Aspirin) 324 mg PO EDNOW ONE Stop: 08/24/16 02:18 Last Admin: 08/24/16 03:25 Dose: Not Given Furosemide (Lasix Injection) 80 mg IVP EDNOW ONE Stop: 08/24/16 02:24 Last Admin: 08/24/16 02:26 Dose: 80 mg Magnesium Sulfate (Magnesium Sulf 2 Gm (Premix)) 50 mls @ 50 mls/hr IV EDNOW ONE Stop: 08/24/16 03:22 Last Admin: 08/24/16 02:26 Dose: 50 mls Calcium Gluconate (Calcium Gluconate 1 Gm (Premix)) 50 mls @ 100 mls/hr IV EDNOW ONE Stop: 08/24/16 03:01 Last Admin: 08/24/16 02:36 Dose: 50 mls Nitroglycerin/Dextrose (Nitroglycerin 200 Mcg/Ml (Premix)) 250 mls @ 100 mls/ min IV CONT ANGELA PRN Reason: Protocol Stop: 02/20/17 02:59 Last Admin: 08/24/16 03:36 Dose: 250 mls Sodium Chloride (Ns) 1,000 mls @ 0 mls/hr IV ONCE ONE PRN Reason: Wide Open Stop: 08/24/16 03:13 Last Admin: 08/24/16 02:45 Dose: 1,000 mls Insulin Human Regular (Humulin R) 10 unit IVP EDNOW ONE Stop: 08/24/16 02:32 Last Admin: 08/24/16 02:38 Dose: 10 units Methylprednisolone Sodium Succinate (Solu-Medrol) 125 mg IVP EDNOW ONE Stop: 08/24/16 02:24 Last Admin: 08/24/16 02:10 Dose: 125 mg Sodium Bicarbonate (Sodium Bicarbonate) 50 meq IVP EDNOW ONE Stop: 08/24/16 02:57 Last Admin: 08/24/16 03:07 Dose: 50 meq Sodium Bicarbonate (Sodium Bicarbonate) 50 meq IVP ONCE ONE Stop: 08/24/16 02:58 Last Admin: 08/24/16 03:53 Dose: Not Given Sodium Polystyrene Sulfonate (Kayexalate) 30 gm PO ONCE ONE Stop: 08/24/16 02:58 Last Admin: 08/24/16 04:43 Dose: 30 gm Point of Care Test Results: 08/24/16 02:20 POC Sodium 132 L POC Potassium 6.2 H POC Chloride 101 POC BUN 48 H POC Creatinine 1.3 H POC Glucose 542 H* Departure - Departure Disposition: [facility] Inpatient Acute Clinical Impression: Respiratory distress, Hypoxia, Hyperkalemia, Hyperglycemia Acute exacerbation of congestive heart failure Qualifiers: Congestive heart failure type: diastolic Qualified Code(s): I50.33 - Acute on chronic diastolic (congestive) heart failure Condition: Critical
[2016-08-24] MEDS: NITROGLYCERIN/DEXTROSE 250 ML IV SCH ×2 (02:20→03:36)
--- NOTE | 2016-08-24 02:20 | CPEKG ---
Heart Rate: 107 RR Interval: 561 P-R Interval: 120 QRSD Interval: 190 QT Interval: 440 QTC Interval: 587 P [place]: 0 QRS [place]: -11 T Wave [place]: 148 EKG Severity - ABNORMAL ECG - EKG Impression: SINUS TACHYCARDIA WITH IRREGULAR RATE 77-116 EKG Impression: LEFT BUNDLE BRANCH BLOCK Electronically Signed By: Susi Agrawal 24-Aug-2016 05:56:08
[2016-08-24 02:22] LABS: % IMMATURE GRANULYOCYTES 0.9 % (0.0-1.1); ABSOLUTE IMMATURE GRANULOCYTES 0.07 10^3/uL (0.00-0.10); ADD DIFF? NO; ADD MORPH? NO; ADD SCAN? NO; ATYPICAL LYMPHOCYTE FLAG 0 (0-99); FRAGMENT RBC FLAG 0 (0-99); HEMATOCRIT 39.1 % (38.0-47.0); HEMOGLOBIN 12.7 g/dL (12.6-16.3); LEFT SHIFT FLG 10 (0-99); LIPEMIA HEMOLYSIS FLAG 80 (0-99); MEAN CELL HEMOGLOBIN 32.6 pg (27.9-34.1); MEAN CELL HEMOGLOBIN CONCENTR. 32.5 g/dL (32.4-36.7); MEAN CELL VOLUME 100.5 fL (81.5-99.8); MEAN PLATELET VOLUME 9.7 fL (8.7-11.7); PLATELET CLUMPS FLAG 20 (0-99); PLATELET COUNT 369 10^3/uL (150-400); RED BLOOD CELL COUNT 3.89 10^6/uL (4.18-5.33); RED CELL DISTRIBUTION WIDTH 12.7 % (11.5-15.2)
[2016-08-24] MEDS ORDERED: MAGNESIUM SULF 2 GM/WATER 50 ML BAG IV ONE (02:23)
[2016-08-24] MEDS ORDERED: MAGNESIUM SULF 2 GM/WATER 50 ML IV ONE (02:23)
[2016-08-24] MEDS ORDERED: methylPREDNISolone SOD SUCC 125 MG/2 ML VIAL IVP ONE (02:23)
[2016-08-24] MEDS ORDERED: FUROSEMIDE 40 MG/4 ML VIAL IVP ONE (02:23)
[2016-08-24 02:29] LABS: ANION GAP 15 mEq/L (8-16); CALCIUM 8.9 mg/dL (8.5-10.4); CARBON DIOXIDE 18 mEq/l (22-31); CHLORIDE 100 mEq/L (97-110); CREATININE 1.3 mg/dL (0.6-1.0); GLOMERULAR FILTRATION RATE 39; SODIUM 133 mEq/L (134-144)
[2016-08-24] MEDS ORDERED: CALCIUM GLUC 10% 1 GM/10 ML VIAL ONE (02:30)
[2016-08-24] MEDS ORDERED: INSULIN REGULAR HUMAN 100 UNIT/ML IVP ONE (02:31)
[2016-08-24] MEDS ORDERED: ALBUTEROL 3 ML DEYVIAL IH ONE (02:31)
[2016-08-24] MEDS ORDERED: CALCIUM GLUCONATE 50 ML IV ONE (02:32)
[2016-08-24] MEDS ORDERED: INSULIN REGULAR HUMAN 100 UNIT/ML ONE (02:32)
[2016-08-24] MEDS ORDERED: IPRATROPIUM/ALBUTEROL 3 ML DEYVIAL ONE (02:33)
[2016-08-24 02:41] LABS: TROPONIN I 0.018 ng/mL (0-0.034)
[2016-08-24 02:46] LABS: GLUCOSE 571 mg/dL (70-100); POTASSIUM 6.4 mEq/L (3.5-5.2)
[2016-08-24] MEDS ORDERED: SODIUM BICARBONATE 50 MEQ/50 ML SYR IVP ONE ×2 (02:56→02:57)
[2016-08-24] MEDS ORDERED: SODIUM POLY SULF 15 GM/60 ML BOTTLE PO ONE (02:57)
[2016-08-24] MEDS ORDERED: INSULIN REGULAR HUMAN 100 UNIT in NS 100 ML IV SCH ×2 (03:00→03:30)
[2016-08-24] MEDS ORDERED: NA BICARBONATE 50 MEQ/50 ML VIAL ONE (03:01)
[2016-08-24] MEDS ORDERED: D50W 25 GM/50 ML SYR IVP PRN ×2 (03:04→13:11)
[2016-08-24] MEDS ORDERED: ONDANSETRON DISINTEGRATING 4 MG TAB PO PRN (03:04)
[2016-08-24] MEDS ORDERED: ONDANSETRON 4 MG/2 ML VIAL IVP PRN (03:04)
[2016-08-24] MEDS ORDERED: ACETAMINOPHEN 325 MG TAB PO PRN (03:04)
[2016-08-24] MEDS ORDERED: ALBUTEROL 3 ML DEYVIAL IH PRN (03:04)
[2016-08-24] MEDS ORDERED: NS 1,000 ML IV ONE (03:12)
[2016-08-24] MEDS ORDERED: D5W 1,000 ML IV SCH (03:15)
[2016-08-24 03:26] LABS: BASE EXCESS -5.5 mEq/L (-2.5-2.5); BICARBONATE 20 mEq/L (22-26); MEASURED OXYGEN SATURATION 98 % (92-95); PCO2 43 mmHg (34-38); PO2 123 mmHg (65-75); TCO2 22 mEq/L (23-27)
[2016-08-24 03:28] LABS: BIPAP YES; EXP PRESSURE 8; INSP PRESSURE 18
[2016-08-24 03:29] LABS: O2 CONCENTRATIION 100 % (0-100); P/F RATIO 123 RATIO
[2016-08-24 03:50] LABS: INR 1.06 (0.83-1.16); PROTIME(PATIENT) 13.7 SEC (12.0-15.0)
[2016-08-24 03:55] LABS: ALANINE AMINOTRANSFERASE 23 IU/L (9-52); ALBUMIN 4.2 g/dL (3.5-5.0); ALKALINE PHOSPHATASE 104 IU/L (38-126); ANION GAP 13 mEq/L (8-16); ASPARTATE AMINOTRANSFERASE 38 IU/L (14-46); BILIRUBIN,TOTAL 0.6 mg/dL (0.1-1.4); BILIRUBIN-CONJUGATED 0.6 mg/dL (0.0-0.5); CARBON DIOXIDE 23 mEq/l (22-31); CHLORIDE 100 mEq/L (97-110); CREATININE 1.2 mg/dL (0.6-1.0); GLOMERULAR FILTRATION RATE 43; GLUCOSE 438 mg/dL (70-100); POTASSIUM 6.1 mEq/L (3.5-5.2); SODIUM 136 mEq/L (134-144)
[2016-08-24] MEDS ORDERED: NITROGLYCERIN/DEXTROSE 250 ML IV SCH (05:00)
[2016-08-24] MEDS ORDERED: SODIUM BICARBONATE 50 MEQ/50 ML SYR ONE (05:24)
[2016-08-24] MEDS: HEPARIN 5,000 UNIT/0.5 ML SYR SC SCH ×3 (06:11→20:35)
--- NOTE | 2016-08-24 06:22 | GHP ---
[f rep st] HISTORY AND PHYSICAL DATE OF ADMISSION: 08/24/2016 CHIEF COMPLAINT: Sudden shortness of breath. HISTORY OF PRESENT ILLNESS: The patient is an 81-year-old female with a history of diabetes, hypertension, chronic diastolic heart failure, and coronary artery disease with a prior [place], who presents to the emergency department with sudden shortness of breath in respiratory distress. She was just hospitalized last month with septic shock secondary to pneumonia, and that hospitalization was complicated by a GI bleed and heart failure exacerbation. She was found to have an ejection fraction of 30% at that time, which was new compared to 2011. There were also some noted wall motion abnormalities on her echocardiogram, though these were stable from 2011. She had a Palliative Care consult during her hospitalization last month and considered hospice, though ultimately decided to discharge home. She was apparently planning to go to [place] this week, where she wished to spend her end of life, but prior to her departure, she became suddenly short of breath and EMS was called. The patient lives at home with her daughter. She has been doing well at home without any obvious worsening of her symptoms. She had not complained of chest pain or shortness of breath. She takes her outpatient medications including Lasix as prescribed. She went to bed this evening in her usual state of health , but awakened with sudden severe respiratory distress. The patient defers all questions to her daughters who provide most of the history. She did not complain of any chest pain prior to this event. She has denied any dizziness, heart palpitations, nausea, vomiting, diarrhea, or abdominal pain. They do not generally follow her weights daily, though I note her discharge weight on July 19 was 95.6 kg. In the emergency department, her chest x-ray revealed diffuse pulmonary edema with cardiomegaly. Her BNP was elevated to 5900. She was tachypneic, tachycardic, and had an oxygen saturation of 71% on arrival. BiPAP was immediately initiated. She was also found to have an elevated potassium and received calcium gluconate, insulin, and Lasix in the emergency department. She was admitted to the intensive care unit on BiPAP for further management. PAST MEDICAL HISTORY: 1. Coronary artery disease with history of [place], but no PCI. 2. Chronic systolic and diastolic heart failure, with a recent ejection fraction of 30% on echo July 06, 2016. 3. Hypertension. 4. Diabetes mellitus type 2. 5. History of pulmonary embolism in 2010. 6. Osteoarthritis. 7. GERD. 8. Obstructive sleep apnea. 9. Obesity. SURGICAL HISTORY: Cholecystectomy. FAMILY HISTORY: Reviewed and noncontributory. SOCIAL HISTORY: The patient lives with her daughter. She is originally from [place] and wishes to return there. She is wheelchair-bound. REVIEW OF SYSTEMS: A 10-point review of systems was performed and is negative, except as per HPI. OBJECTIVE: VITAL SIGNS: Upon arrival to the emergency department, temperature was 35.7, repeat temperature was 36.2, initial blood pressure was 170/122 heart rate 97, respiratory rate 24, she was 71% on room air, 96% on BiPAP. GENERAL: The patient initially appears somnolent, though easily awakens to verbal stimuli. She defers all questions to her daughters, and is unable to provide a history. HEENT: Head is atraumatic, normocephalic. Pupils equal, round, and reactive to light. Extraocular muscles intact. Oropharynx is clear. Mucous membranes are moist. NECK: Supple. She has 10 cm of JVD. HEART: Tachycardic without murmur. LUNGS: Crackles chcf up both lungs. ABDOMEN: Soft, nondistended, nontender, with normoactive bowel tones. EXTREMITIES: She has 1+ bilateral lower extremity nonpitting edema. NEUROLOGIC: Grossly nonfocal. She moves all 4 extremities. LABORATORY DATA: CBC reveals a normal white blood cell count. INR is 1.06. ABG shows a pH of 7.3, pCO2 of 43, and a pO2 of 123. Complete metabolic panel shows a sodium of 133, potassium of 6.4, chloride 100, bicarb 18, BUN 49, creatinine 1.3, a blood glucose of 571, calcium 8.9. Troponin is negative at 0.018. NT-proBNP is 5890. Repeat basic metabolic panel shows potassium is decreased to 6.1, creatinine slightly lower at 1.2, repeat glucose 438. LFTs are normal. Phosphorus is normal. IMAGING STUDIES: Chest x-ray in the emergency department, personally reviewed and interpreted, shows cardiomegaly with diffuse bilateral infiltrates appearing consistent with pulmonary edema. EKG upon arrival to the emergency department showed sinus tachycardia with a left bundle branch block and a prolonged QT interval. ASSESSMENT AND PLAN: The patient is an 81-year-old female with a history of coronary artery disease, diabetes, hypertension, and chronic respiratory failure secondary to chronic systolic and diastolic heart failure, who presents to the emergency department in acute respiratory failure suspected secondary to flash pulmonary edema. 1. Acute on chronic hypoxemic and hypercarbic respiratory failure secondary to an acute heart failure exacerbation. Her history is consistent with flash pulmonary edema. She denies chest pain at this time. Her symptoms are improved with BiPAP, and she has been given 80 mg of IV Lasix. A nitroglycerin drip is started and will also give hydralazine as tolerated. She will be continued on her outpatient beta zakia and AKIRA inhibitor once her medication reconciliation is completed and her clinical condition has stabilized. I am going to repeat an echocardiogram to assess for new wall motion abnormalities. Her initial troponin is negative, and we will continue to trend her troponins. We will plan for a Cardiology consult in the morning. 2. Hyperkalemia. She presents with a potassium of 6.4 and a non-anion gap metabolic acidosis. She received calcium gluconate, 10 mg of IV insulin, and IV Lasix in the emergency department. I have given her 2 amps of sodium bicarb and 30 g of Kayexalate. Repeat potassium has come down to 5. She did have some EKG changes on arrival with a widened QRS complex. Per my review of her linux systems engineer, it appears this has improved. I will repeat an EKG now. The insulin drip should also help drive her potassium intracellular. We will continue close monitoring. 3. Diabetes mellitus type 2. She presents with hyperglycemia with a blood sugar of 571. She received 10 mg of IV regular insulin in the emergency department. An insulin drip was started for glycemic control. We will check an A1c and we will determine if she will require ongoing insulin therapy at discharge. 4. Coronary artery disease with history of a myocardial infarction, but no prior PCI. Her initial troponin is negative and she denies chest pain. I will plan to trend her troponin. I have ordered a repeat echocardiogram to assess for wall motion abnormality, and I will also request a Cardiology consult. She will likely need further risk stratification in the form of stress test versus angiogram prior to discharge. Please see discussion of her goals of care below , which may pertain to how we would proceed in terms of cardiac risk stratification. 5. Anemia. She recently had a GI bleed while hospitalized here in July 2016. The EGD at that time showed a gastroduodenitis with no evidence of active bleeding. We will continue her on PPI therapy, which I will give IV for now, given her need for BiPAP and NPO status. Her hemoglobin is actually improved to 12.7 compared to her discharge hemoglobin of 7.2. There has been no evidence of ongoing active GI bleeding. 6. Obstructive sleep apnea. The patient is currently receiving BiPAP. 7. Obesity. This complicates all aspects of care and may be contributing to her chronic respiratory failure in the form of obesity hypoventilation syndrome. DISPOSITION: Patient is admitted to the ICU and will require greater than 48 hours' hospitalization for ongoing management of her acute on chronic respiratory failure and acute heart failure exacerbation. Will also request Case Management, PT and OT evaluations. CODE STATUS: I had a lengthy discussion of code status with her 2 daughters, who ultimately wish for her to be DNR. They would also like to continue a consultation with the palliative care team who was involved in her care prior to her recent discharge. They do not believe she would want any aggressive measures. They would like to proceed with full medical therapy at this time. Greater than 60 minutes were spent providing critical care and coordinating goals of care with family. /[id number]/MODL MTDD
[2016-08-24 06:49] LABS: POTASSIUM 5.3 mEq/L (3.5-5.2)
--- NOTE | 2016-08-24 08:43 | CPEKG ---
Heart Rate: 71 RR Interval: 845 P-R Interval: 212 QRSD Interval: 96 QT Interval: 496 QTC Interval: 540 P [place]: 40 QRS [place]: -19 T Wave [place]: 95 EKG Severity - ABNORMAL ECG - EKG Impression: SINUS RHYTHM EKG Impression: BORDERLINE LEFT AXIS DEVIATION EKG Impression: BORDERLINE T ABNORMALITIES, ANTERIOR LEADS EKG Impression: PROLONGED QT INTERVAL EKG Impression: LEFT BUNDLE BRANCH HAS RESOLVED SINCE EARLIER 24-AUG-2016 Electronically Signed By: Rosemarie Ruano 24-Aug-2016 12:03:41
[2016-08-24] MEDS ORDERED: hydrALAZINE 20 MG/ML VIAL IVP SCH (09:00)
[2016-08-24] MEDS ORDERED: PANTOPRAZOLE SODIUM 40 MG in NS 100 ML IV SCH (09:00)
[2016-08-24] MEDS: FUROSEMIDE 40 MG/4 ML VIAL IVP SCH ×3 (10:37→22:17)
[2016-08-24 11:02] LABS: HEMOGLOBIN A1C 6.6 % (4.0-6.0)
[2016-08-24 12:30] LABS: GLUCOSE 144 mg/dL (70-100)
--- NOTE | 2016-08-24 13:34 | CPEKG ---
Heart Rate: 97 RR Interval: 619 P-R Interval: 133 QRSD Interval: 182 QT Interval: 420 QTC Interval: 534 P [place]: -39 QRS [place]: -2 T Wave [place]: 188 EKG Severity - ABNORMAL ECG - EKG Impression: SINUS RHYTHM EKG Impression: VENTRICULAR PREMATURE COMPLEX EKG Impression: LEFT BUNDLE BRANCH BLOCK Electronically Signed By: Susi Agrawal 25-Aug-2016 00:18:01
[2016-08-24 14:23] LABS: MAGNESIUM 3.7 mg/dL (1.6-2.3)
--- NOTE | 2016-08-24 15:14 | PDPCPN ---
Palliative Care Progress Note Assessment/Plan: Referring provider: Dr Loomis Reason for consult: Complex medical decision making Symptom control HPI: Dodie Huston (Cheva) is a 81 yo female with PMH DM 2, HTN, HLD, CHF (EF 30% on last admission), PE, CAD, and obesity admitted to the hospital for acute SOB. Found to have flash pul edema with new EKG changes and trop of 5. Known to us from previous admission 4 weeks ago when she was treated for acute CHF exacerbation and PNA. Palliative care consulted for complex medical decision making. Spoke outside of the room with 4 of her children including MDPOA with help of assistant restaurant general manager and Dr Garcia. Dr Garcia explained the cardiac cath in detail to the family with benefits and risks of the procedure and the reason for needing the procedure. THe family stated Nitin does not want any procedures. They feel she has a lot of panic attacks which brings on more stress for her. They state her number 1 priority is going to [place] to live the rest of her life. It was prepared she was going to leave at the end of August but was rehospitalized before that. At home she was improving, able to walk a little and eating/drinking well. They feel at this time her comfort and going to [place] is a priority and only want medical management in hopes to get her back home. Assessment: Physical: - Pain: chronic knee pain - tylenol PRN - Dyspnea: - oxygen as needed - a fan can also help with subjective dyspnea - recommend trying very low dose roxanol 2.5-5 mg PO Q2hr PRN for any dyspnea - constipation - at risk if using opiates - senna and colace bowel regimen Emotional/psychological: Anxiety: with panic attacks at times - treat dyspnea as above Advanced Care Planning: Is patient decisional?: Yes but defers to her daughter Code Status: DNR POA: Daughter is MDPOA Plan: She does not want any procedures and family is hoping to take her home to [place] to . At present time they are not interested in cardiac cath and only want medication management. 08/24/16 15:27 Subjective: sleeping, did not awaken Objective: Social History: From [place]. Has a large family with 9 daughters. Splits her time between [place] and [place]. Medication list reviewed ROS: General: fatigue, weakness ENT: negative Resp: dyspnea, cough GI: negative : negative MS: negative Skin: negative Neuro: negative Psych: anxiety Functional assessment: PPS: 40% Functional status: dependent on ADLs, IADLs Vital Signs Temp Pulse Resp BP Pulse Ox 37.1 C 74 18 100/72 92 08/24/16 12:00 08/24/16 12:00 08/24/16 12:00 08/24/16 12:00 08/24/16 12:00 Laboratory Results 08/24/16 11:50 08/23/16 08/24/16 08/25/16 05:59 05:59 05:59 Intake Total 1504 Output Total 170 125 Balance 1334 -125 PT 13.7 SEC (12.0-15.0) 08/24/16 02:14 INR 1.06 (0.83-1.16) 08/24/16 02:14 Physical Exam - Physical Exam General Appearance: no apparent distress, other (sleeping) Respiratory: No respiratory distress, No accessory muscle use Skin: normal color, warm/dry Extremities: pedal edema Neuro/Psych: other (sleeping) ICD10 Worksheet Patient Problems: Problems Problem Status Onset Acute exacerbation of congestive heart failure Acute Hyperglycemia Acute Hyperkalemia Acute Hypoxia Acute Respiratory distress Acute Chronic Disease Mgmt/Transitional Care Acute Hypoxia Acute Palliative care encounter Acute Pulmonary edema Acute
--- NOTE | 2016-08-24 15:41 | PDCARCONS ---
Cardiology Consult Reason for Consult: Abnormal ECG with elevation in cardiac biomarkers Chief Complaint: shortness of breath Requesting Physician: Hospitalists History of Present Illness: Patient is an 81 y/o female with history of CAD with history of myocardial infarction, HTN, HLP, DM, IAN, GERD, and diastolic congestive heart failure, who presents to [facility] with complaints of shortness of breath. Patient with relatively recent admission and discharge from [facility] with somewhat similar symptoms (at that time treated for pneumonia). All communication with the patient was through family (daughters) and a manufacturing area manager. When the patient was seen earlier today, she voiced no active cardiovascular complaints - no chest pains or pressure. No PND or orthopnea. Patient did not appear to be uncomfortable, outside of the fact that she was back in the hospital. Daughters states that earlier in the morning, the patient had a "panic attack", and she was transported to [facility] via EMS for this condition. Initial work up with ECG (new LBBB pattern) and cardiac biomarkers (troponin, intially without elevation, but this morning, elevation to 5 had been noted, and this precipitated the desire to have cardiology input). Communication through manufacturing area manager to the patient did not elicit any complaints. Daughters then began to assist with answering all the remaining questions. Compliance with medical therapy has been good (and driven by the family). Echocardiogram in June was reviewed with ejection fraction at that time noted to be 30%. Echocardiogram with this admission with further reduction in systolic function noted (20%). A twelve point review of systems was unremarkable outside of that which was mentioned above. History Information - Allergies/Home Medication List Allergies/Adverse Reactions: No Known Allergies Allergy (Unverified 07/05/16 23:26) Home Medications: Ranitidine HCl [Zantac] 150 mg PO DAILY PRN 07/06/16 [Last Taken Unknown] Vitamin B Complex [B Complex] 1 each PO DAILY 07/06/16 [Last Taken Unknown] Amoxicillin 500 mg PO QID 08/24/16 [Last Taken Unknown] Aspirin [Aspirin 81mg (*)] 81 mg PO DAILY 08/24/16 [Last Taken Unknown] Furosemide [Lasix 40 MG (*)] 40 mg PO BID@08,14 08/24/16 [Last Taken Unknown] Lisinopril [Zestril 2.5 mg (*)] 2.5 mg PO DAILY 08/24/16 [Last Taken Unknown] metFORMIN HCL [Glucophage 500 mg (*)] 500 mg PO BIDMEAL 08/24/16 [Last Taken Unknown] I have personally reviewed and updated: family history, medical history, social history, surgical history - Past Medical History coronary artery disease, CHF, COPD, GI bleed, GERD, hypertension, hyperlipidemia , myocardial infarction, pneumonia - Surgical History Reports: no pertinent surgical hx - Family History Positive for: non-pertinent - Social History Smoking Status: Never smoked Alcohol Use: None Drug Use: None Cardiac History - Cardiac History Past Cardiac History: CAD Cardiac Risk Factors: hypertension (>140/90), lipidemia, diabetes mellitus, age > 65 Timing/Duration: Days Severity: severe Severity Scale: 8 Location: substernal Activities at Onset: sleep Modifying Factors: improves with: breathing, oxygen Associated Symptoms: diaphoresis, shortness of breath, weakness MIRIAM Risk Evaluation age greater or equal to 65: yes greater or equal to 3 CAD risk factors: yes known CAD(stenosis greater or eqaul to 50%): yes ASA use in past 7 days: yes severe angina(greater or equal to 2 episodes in 24hrs): no EKG ST changes greater or equal to 0.5mm: no positive cardiac marker: yes Total Score: 5 MIRIAM Score: 26.2% risk Physical Exam Temp Pulse Resp BP Pulse Ox 37.4 C 83 17 151/72 H 92 08/24/16 14:00 08/24/16 14:00 08/24/16 14:00 08/24/16 14:00 08/24/16 14:00 O2 (L/minute) 4 FIO2 (%) 50 Constitutional: no apparent distress, appears nourished Eyes: PERRL Ears, Nose, Mouth, Throat: moist mucous membranes, hearing normal Cardiovascular: regular rate and rhythym, No systolic murmur, No JVD Peripheral Pulses: 2+: dorsalis-pedis (R), dorsalis-pedis (L) Respiratory: no respiratory distress, clear to auscultation, No expiratory wheeze, No respiratory distress Gastrointestinal: normoactive bowel sounds Skin: warm, No rash Musculoskeletal: no muscle tenderness Neurologic: AAOx3, CN II-XII Intact Psychiatric: interacting appropriately, not anxious, not encephalopathic Lab and Imaging 08/24/16 02:14 08/24/16 11:50 WBC 7.82 10^3/uL (3.80-9.50) 08/24/16 02:14 RBC 3.89 10^6/uL (4.18-5.33) L 08/24/16 02:14 Hgb 12.7 g/dL (12.6-16.3) 08/24/16 02:14 POC Hgb 12.2 gm/dL (12.3-15.9) L 08/24/16 04:52 Hct 39.1 % (38.0-47.0) 08/24/16 02:14 POC Hct 36 % (35.5-47.5) 08/24/16 04:52 MCV 100.5 fL (81.5-99.8) H 08/24/16 02:14 MCH 32.6 pg (27.9-34.1) 08/24/16 02:14 MCHC 32.5 g/dL (32.4-36.7) 08/24/16 02:14 RDW 12.7 % (11.5-15.2) 08/24/16 02:14 Plt Count 369 10^3/uL (150-400) 08/24/16 02:14 MPV 9.7 fL (8.7-11.7) 08/24/16 02:14 Neut % (Auto) 68.4 % (39.3-74.2) 08/24/16 02:14 Lymph % (Auto) 28.1 % (15.0-45.0) 08/24/16 02:14 [place] % (Auto) 2.2 % (4.5-13.0) L 08/24/16 02:14 Eos % (Auto) 0.0 % (0.6-7.6) L 08/24/16 02:14 Baso % (Auto) 0.4 % (0.3-1.7) 08/24/16 02:14 Nucleat RBC Rel Count 0.0 % (0.0-0.2) 08/24/16 02:14 Absolute Neuts (auto) 5.35 10^3/uL (1.70-6.50) 08/24/16 02:14 Absolute Lymphs (auto) 2.20 10^3/uL (1.00-3.00) 08/24/16 02:14 Absolute Monos (auto) 0.17 10^3/uL (0.30-0.80) L 08/24/16 02:14 Absolute Eos (auto) 0.00 10^3/uL (0.03-0.40) L 08/24/16 02:14 Absolute Basos (auto) 0.03 10^3/uL (0.02-0.10) 08/24/16 02:14 Absolute Nucleated RBC 0.00 10^3/uL (0-0.01) 08/24/16 02:14 Immature Gran % 0.9 % (0.0-1.1) 08/24/16 02:14 Immature Gran # 0.07 10^3/uL (0.00-0.10) 08/24/16 02:14 PT 13.7 SEC (12.0-15.0) 08/24/16 02:14 INR 1.06 (0.83-1.16) 08/24/16 02:14 Puncture Site RIGHT RADIAL 08/24/16 03:20 Patient Temperature 36.5 DEGREES 08/24/16 03:20 pCO2 43 mmHg (34-38) H 08/24/16 03:20 pO2 123 mmHg (65-75) H 08/24/16 03:20 Total CO2 22 mEq/L (23-27) L 08/24/16 03:20 ABG pH 7.30 (7.35-7.45) L 08/24/16 03:20 ABG PO2/FiO2 Ratio 123 RATIO 08/24/16 03:20 ABG O2 Saturation 98 % (92-95) H 08/24/16 03:20 ABG Base Excess -5.5 mEq/L (-2.5-2.5) L 08/24/16 03:20 O2 Concentration % 100 % (0-100) 08/24/16 03:20 Expiratory Pressure 8 08/24/16 03:20 Inspiratory Pressure 18 08/24/16 03:20 Mode BiPAP YES 08/24/16 03:20 POC Sodium 134 mEq/L (134-144) 08/24/16 04:52 Sodium 136 mEq/L (134-144) 08/24/16 03:25 POC Potassium 5.0 mEq/L (3.3-5.0) 08/24/16 04:52 Potassium 5.3 mEq/L (3.5-5.2) H 08/24/16 06:15 POC Chloride 99 mEq/L (96-108) 08/24/16 04:52 Chloride 100 mEq/L (97-110) 08/24/16 03:25 Carbon Dioxide 23 mEq/l (22-31) 08/24/16 03:25 Bicarbonate 20 mEq/L (22-26) L 08/24/16 03:20 Anion Gap 13 mEq/L (8-16) 08/24/16 03:25 POC BUN 46 mg/dL (7-23) H 08/24/16 04:52 BUN 53 mg/dL (7-23) H 08/24/16 03:25 Creatinine 1.2 mg/dL (0.6-1.0) H 08/24/16 03:25 POC Creatinine 1.2 mg/dL (0.6-1.2) 08/24/16 04:52 Estimated GFR 43 08/24/16 03:25 Glucose 144 mg/dL (70-100) H 08/24/16 11:50 POC Glucose 389 mg/dL (70-100) H 08/24/16 04:52 Hemoglobin A1c 6.6 % (4.0-6.0) H 08/24/16 02:14 Estim Average Glucose 143 mg/dL (68-126) H 08/24/16 02:14 Calcium 10.0 mg/dL (8.5-10.4) 08/24/16 03:25 Phosphorus 5.9 mg/dL (2.5-4.5) H 08/24/16 06:15 Magnesium 3.7 mg/dL (1.6-2.3) H 08/24/16 06:15 Total Bilirubin 0.6 mg/dL (0.1-1.4) 08/24/16 03:25 Conjugated Bilirubin 0.6 mg/dL (0.0-0.5) H 08/24/16 03:25 Unconjugated Bilirubin 0.0 mg/dL (0.0-1.1) 08/24/16 03:25 AST 38 IU/L (14-46) 08/24/16 03:25 ALT 23 IU/L (9-52) 08/24/16 03:25 Alkaline Phosphatase 104 IU/L (38-126) 08/24/16 03:25 Troponin I 5.510 ng/mL (0-0.034) H 08/24/16 08:00 NT-Pro-B Natriuret Pep 5890 pg/mL (0-450) H 08/24/16 02:14 Total Protein 8.0 g/dL (6.3-8.2) 08/24/16 03:25 Albumin 4.2 g/dL (3.5-5.0) 08/24/16 03:25 Visualized and Interpreted Chest x-ray results: Yes Chest X-ray Interpretation: effusion, other (evidence consistent with congestive heart failure) Visualized and Interpreted EKG results: Yes EKG Interpretation: Positive for: left bundle branch block, normal sinsus rhythm Telemetry: normal sinus rhythm is noted. patient with episodic LBBB pattern. Echocardiogram: severe reduction in LVEF (20%) which represents further reduction in systolic function beyond that which was noted with prior echocardiogram. A/P Assessment: The patient is an 81 y/o female with extensive cardiovascular and medical histories (CAD, HTN, HLP, DM, diastolic CHF, recent pneumonia history, IAN, and GERD), who presents back to [facility] with complaints of "panic attack" per family. ECG with "new" LBBB pattern, echocardiogram with further reduction in LVEF, and ongoing elevation to the troponin is being noted. Patient is without any cardiovascular complaints that we can obtain - vast majority of the discussion has been with daughters/family through manufacturing area manager. They report that at present , the patient is comfortable and without complaints. The patient's chief desire , as was the case with her prior admission, is to get back home to [place]. Lengthy conversation with family/daughters through manufacturing area manager, with social work and nursing staff present. Discussions about options, including, but no limited to, angiography, and further manipulation of patient's oral medical therapy. The patient did voice that she wishes to have "...no further procedures performed..." and understands the ramifications of this decision. This decision is not final, in that should the patient decline, and and decisions are changed, we could still pursue invasive cardiovascular testing. The patient/family do not feel that "open heart surgery" is an option at all, and to determine if that is a possible outcome or need, they understand the angiogram requirement. There was discussion to simply perform a "diagnostic cath" without intent to perform any further procedures, but this exposes the patient to the risks of the procedure for no good reason. There was a palliative consult with the last admission, and with review of the EMR, there has been another with this admission. Plan: In review of the patient's current medications: (1) ASA therapy should remain given history of CAD with myocardial infarction and the ongoing event (likely a revisitation of the prior event) (2) Coreg should continue, if tolerated by assessment of blood pressure, heart rate, and symptoms (fatigue) (3) A low dose of ACEi would be indicated by the reduction in systolic function that has been noted - if blood pressures are noted to be low (<100 mm Hg systolic) with the Coreg, and/or there is decrease in renal function, would refrain from the addition of this therapy (4) Aggressive DM management is recommended given past history and current events (5) Angiography would allow further risk stratification as well as possible intervention to a critical lesion, but the patient does not want to have further "proce - if there are numerous lesions (and CABG is recommended) the patient is currently unwilling to pursue this option (6) Would consider the addition of statins given the risks and notable symptoms - Crestor 5-10 mg per day (7) The patient's goal (chief goal) is to get home to [place]. I am uncertain if this goal will be achieved given the progressive decline that has been noted with this patient over the past several weeks (with two admissions in relatively close succession).
--- NOTE | 2016-08-24 16:02 | ECHO ---
[id number] + + [address] : : [place] [address] : : [phone] + + Adult Echocardiographic Report + + :Name: DANIELA GRISSOMEBIAStudy Date: 08/24/2016 07:51 AM : : Hospital Admission Number: [id number] Location: 247: :: 1935 Gender: Female Height: 61 in : :Age: 81 yrs Race: ,[facility] Weight: 244 lb : :Reason For Study: Eval LV Fx : : BSA: 2.1 meters2 : :History: Acute Respiratory Failure, COPD : + + MMode/2D Measurements \T\ Calculations IVSd: 0.88 cm LVIDd: 6.5 cm FS: 8.7 % Ao root diam: LVPWd: 1.1 cm LVIDs: 6.0 cm EDV(Teich): 3.5 cm 218.1 ml ACS: 1.8 cm ESV(Teich): 177.1 ml EF(Teich): 18.8 % LVOT diam: 1.8 cm LVLd ap4: 7.2 cm SV(MOD-sp4): LVOT area: EDV(MOD-sp4): 20.0 ml 2.7 cm2 96.0 ml LVLs ap4: 6.6 cm ESV(MOD-sp4): 76.0 ml EF(MOD-sp4): 20.8 % Normal Measurement Values: + + :LVIDd (3.5-5.7cm) IVSd (0.6-1.1cm) LVPWd (0.6-1.1cm) Aortic Root (2.0-3.7cm)Left Atrium (1.5-4.0cm): :LV Vol(d) (76-115ml) LV Vol(s) (29-48ml) Ejec Fraction (50-65%)PV Mo (0.6- 1.2m/s) TV Mo (0.4-1.0m/s) : :MV E Mo (0.8-1.0m/s)MV A Mo (0.3-1.0m/s)LVOT Mo (0.7-1.2m/s) Asc Ao Mo ( 0.9-1.8m/s) : + + Doppler Measurements \T\ Calculations MV E max mo: MV V2 max: Ao V2 max: AI max mo: 80.0 cm/sec 160.2 cm/sec 186.0 cm/sec 409.9 cm/sec MV A max mo: MV max PG: Ao max PG: AI max P.2 mmHg 136.2 cm/sec 10.3 mmHg 13.8 mmHg AI dec slope: MV E/A: 0.59 MV V2 mean: JIMY(V,D): 1.1 cm2 217.6 cm/sec2 76.1 cm/sec AI P1/2t: 551.7 msec MV mean P.8 mmHg MV V2 VTI: 30.8 cm MVA(VTI): 1.1 cm2 LV V1 max: MR max mo: SV(LVOT): 34.9 ml 77.5 cm/sec 447.9 cm/sec LV V1 max PG: MR max P.4 mmHg 80.3 mmHg LV V1 mean P.85 mmHg LV V1 mean: 44.3 cm/sec LV V1 VTI: 13.1 cm Left Ventricle The left ventricle is mild to moderately dilated. There is normal left ventricular wall thickness. Ejection Fraction = 20-25%. The left ventricular ejection fraction is calculated at 18.8 %. There is Doppler evidence for diastolic dysfunction. There is severe global hypokinesis of the left ventricle. Right Ventricle The right ventricle is grossly normal size. The right ventricular systolic function is moderately reduced. Atria The left atrial size is normal. Right atrial size is normal. Mitral Valve There is mild mitral annular calcification. There is mild mitral regurgitation. Tricuspid Valve Normal tricuspid valve. There is trace tricuspid regurgitation. Aortic Valve The aortic valve is trileaflet. There is no aortic stenosis. Mild to moderate aortic regurgitation. Pulmonic Valve The pulmonic valve is not well visualized. There is no pulmonic valvular regurgitation. Great Vessels The aortic root is normal size. Pericardium/Pleural There is no pericardial effusion. There is a fat pad seen. Conclusion A complete two-dimensional transthoracic echocardiogram was performed (2D, M-mode, Doppler and color flow Doppler). (1) Left ventricular systolic ejection fraction was severly reduced (20-25%) - severe global hypokinesis (2) No left ventricular hypertrophy - left ventricular dilation (moderate) (3) Diastolic dysfunction was present (4) Normal right ventricular chamber dimension with reduction in systolic function (5) Grossly normal atrial dimensions (6) Mild mitral regurgitation wtih mild annular calcification (7) Trileaflet aortic valve with mild to moderate regurgitation, but no sclerosis or stenosis (8) Physiologic tricuspid regurgitation (9) Poor visualization of the pulmonic valve (10) In comparison to prior echocardiogram from 07-06-16, there has been further reduction in LVEF (from 30%) Final Reading Physician: Harish Braswell signed on 08/24/2016 03:59 PM Ordering Physician: Nenita Loomis Performed By: Huseyin Sorto, KARENCS
--- NOTE | 2016-08-24 17:03 | HOSPPROG ---
Hospitalist Progress Note Assessment/Plan: * Acute HI -cardiac cath declined - medical management -ASA, coreg -check lipids * Flash pulmonary edema -IV lasix * Acute on chronic systolic CHF - EF 30% * Hyperkalemia - improved -hold ACEI * Morbid obesity BMI 48 - obesity hypoventilation syndrome * Suspected IAN -needs outpatient sleep study * Acute on chronic respiratory failure * DM II -metformin * Trigeminal neuralgia -Tegretol Palliative care consult She does not want any procedures Okay with labs and medications Wishes to return to [place] knowing she is near the end of her life Subjective: SOB better Objective: Vital Signs Temp Pulse Resp BP Pulse Ox 37.4 C 83 18 151/72 H 92 08/24/16 15:57 08/24/16 16:48 08/24/16 15:57 08/24/16 15:57 08/24/16 15:57 Laboratory Results 08/24/16 11:50 08/23/16 08/24/16 08/25/16 05:59 05:59 05:59 Intake Total 1504 379 Output Total 170 1425 Balance 1334 -1046 PT 13.7 SEC (12.0-15.0) 08/24/16 02:14 INR 1.06 (0.83-1.16) 08/24/16 02:14 jessica Douglas - they decline cardiac cath CXR - pulmonary edema - Physical Exam Constitutional: no apparent distress, appears nourished, not in pain Cardiovascular: regular rate and rhythym, no murmur, rub, or gallop Respiratory: no respiratory distress, no rales or rhonchi, clear to auscultation Gastrointestinal: normoactive bowel sounds, soft, non-tender abdomen, no palpable masses Skin: no rashes or abrasions, no fluctuance, no induration Neurologic: AAOx3, sensation intact bilaterally Psychiatric: interacting appropriately, not anxious, not encephalopathic, thought process linear ICD10 Worksheet Patient Problems: Problems Problem Status Onset Acute exacerbation of congestive heart failure Acute Hyperglycemia Acute Hyperkalemia Acute Hypoxia Acute Respiratory distress Acute Chronic Disease Mgmt/Transitional Care Acute Hypoxia Acute Palliative care encounter Acute Pulmonary edema Acute
[2016-08-24] MEDS: CARVEDILOL 3.125 MG TAB PO SCH (18:02)
[2016-08-24] MEDS: metFORMIN HCL 500 MG TAB PO SCH (18:02)
[2016-08-24] MEDS: INSULIN REGULAR HUMAN 100 UNIT/ML SC SCH ×2 (18:03→22:17)
--- NOTE | 2016-08-24 19:35 | GCON ---
[f rep st] CONSULTATION HISTORY OF PRESENT ILLNESS: This patient is an 81-year-old female, with a complex medical history t hat includes coronary artery disease and congestive heart failure with an ejection fraction of about 30%. She was hospitalized recently at [facility] with pneumonia and a GI bleed, an d was discharged home with the idea of going to hospice. She was planning to move to [place], where she was going to finish her days, but became suddenly short of breath and called EMS. She arrived, she was quite hypoxic and a chest x-ray showed diffuse infiltrates with a BNP of 5900. She was star jaden on BiPAP and given Lasix, as well as calcium and insulin for hyperkalemia, and admitted to the ntensive care unit. Using interpreters while she has been here though has been somewhat difficult, and she has made it quite clear that she really wants no procedures to be done, and they were not qu ite to [place] at this time. It also was revealed that her troponin was elevated to 5, and a cardiac catheterization was offered, though the family declined at this time. She does have probable sleep apnea but does not use CPAP at home as well. PAST MEDICAL HISTORY: 1. Coronary artery disease, with a history of myocardial infarction. 2. Congestive heart failure with an ejection fraction of 30%. 3. Diastolic heart failure. 4. Hypertension. 5. Diabetes. 6. Pulmonary embolism in 2010. 7. Arthritis. 8. GERD. 9. Obstructive sleep apnea. 10. Obesity. PAST SURGICAL HISTORY: Includes cholecystectomy. FAMILY HISTORY: Noncontributory at this time. SOCIAL HISTORY: She is a nonsmoker, originally from [place], wishes to return there. CURRENT MEDICATIONS: Include Proventil, aspirin, Tegretol, Coreg, Lasix, heparin, Humulin, Glucopha ge, and Zofran. PHYSICAL EXAMINATION: VITAL SIGNS: She was afebrile. Her heart rate was 81, blood pressure 115/73 , respirations 16, oxygen saturation was 90% on 4 L. GENERAL: She is a morbidly obese, Hungarian-spe aking only female who is in no apparent distress and not using any respiratory muscles for breathing . HEENT: Pupils are equally round and reactive to light, nonicteric and noninjected. Mucous membr anes are moist without erythema or exudate. NECK: Supple without adenopathy. I could not apprecia te jugular vein distention. RESPIRATORY: Breath sounds were diffusely crackly, without obvious whe ezing. HEART: Regular rate and rhythm. ABDOMEN: Soft, nontender, nondistended. EXTREMITIES: Sh ow no clubbing, cyanosis or edema. NEUROLOGIC: Nonfocal. OBJECTIVE DATA: Includes a chest x-ray as described above. White count was 7.8, hematocrit 39, and platelets of 369. Her potassium had returned to 5.3, with t herapy as mentioned above. Creatinine was 1.3, down to 1.2. Troponin was 0.018, increasing to 5.5, and more recently at noon 8.1. ASSESSMENT AND PLAN: 1. Likely flash pulmonary edema related to an acute myocardial infarction. Patient decided she wan ts no interventions at this time, is not going to get a cardiac catheterization. We can try to cont inue to support her with oxygen and Lasix, and hope that she improves enough to be stable for eventu al discharge to hospice care. I do not see any evidence of pneumonia, interstitial lung disease or chronic obstructive pulmonary disease in this patient. I think it is all related to pulmonary edema . 2. Obstructive sleep apnea. This could also be contributing to this as well, since that is associa jaden with coronary disease as well as flash pulmonary edema, but she is not interested in using this on a regular basis, although is willing to have BiPAP while she is here. 3. Hyperkalemia, this is likely due to her acidosis, which has been somewhat corrected with BiPAP a t this time, as well as the calcium and Kayexalate that she was given earlier. I will continue to segundo avila for now but have little to offer, other than I support the plan for hospice care. /[id number]/MODL
[2016-08-24] MEDS: carBAMazepine 200 MG TAB PO SCH (20:35)
[2016-08-25 05:00] LABS: % IMMATURE GRANULYOCYTES 0.5 % (0.0-1.1); ABSOLUTE IMMATURE GRANULOCYTES 0.06 10^3/uL (0.00-0.10); ADD DIFF? NO; ADD MORPH? NO; ADD SCAN? NO; ATYPICAL LYMPHOCYTE FLAG 0 (0-99); FRAGMENT RBC FLAG 0 (0-99); HEMATOCRIT 30.3 % (38.0-47.0); LEFT SHIFT FLG 0 (0-99); LIPEMIA HEMOLYSIS FLAG 80 (0-99); MEAN CELL HEMOGLOBIN 32.2 pg (27.9-34.1); MEAN CELL VOLUME 97.4 fL (81.5-99.8); MEAN PLATELET VOLUME 10.2 fL (8.7-11.7); PLATELET CLUMPS FLAG 10 (0-99); PLATELET COUNT 283 10^3/uL (150-400); RED BLOOD CELL COUNT 3.11 10^6/uL (4.18-5.33)
[2016-08-25 05:31] LABS: ALANINE AMINOTRANSFERASE 25 IU/L (9-52); ALBUMIN 3.5 g/dL (3.5-5.0); ALKALINE PHOSPHATASE 68 IU/L (38-126); ANION GAP 9 mEq/L (8-16); ASPARTATE AMINOTRANSFERASE 47 IU/L (14-46); BILIRUBIN,TOTAL 0.4 mg/dL (0.1-1.4); BILIRUBIN-CONJUGATED 0.4 mg/dL (0.0-0.5); CALCIUM 9.2 mg/dL (8.5-10.4); CARBON DIOXIDE 25 mEq/l (22-31); CHLORIDE 105 mEq/L (97-110); CHOLESTEROL 210 mg/dL (140-220); CHOLESTEROL/HDL RATIO 5.38 RATIO (1.00-4.44); CREATININE 1.3 mg/dL (0.6-1.0); GLOMERULAR FILTRATION RATE 39; GLUCOSE 156 mg/dL (70-100); HIGH DENSITY LIPOPROTEIN 39 mg/dL (40-85); LDL/HDL RATIO 3.46 RATIO (1.00-3.22); LOW DENSITY LIPOPROTEIN 135 mg/dL (80-100); NON-HIGH DENSITY LIPOPROTEIN 171 mg/dL (90-129); POTASSIUM 5.1 mEq/L (3.5-5.2); SODIUM 139 mEq/L (134-144); TOTAL PROTEIN 6.4 g/dL (6.3-8.2); TRIGLYCERIDE 180 mg/dL (35-135); VERY LOW DENSITY LIPOPROTEINS 36 mg/dL (8-25)
[2016-08-25] MEDS: HEPARIN 5,000 UNIT/0.5 ML SYR SC SCH ×3 (05:49→21:15)
[2016-08-25] MEDS: INSULIN REGULAR HUMAN 100 UNIT/ML SC SCH ×4 (08:19→21:15)
[2016-08-25] MEDS: CARVEDILOL 3.125 MG TAB PO SCH ×2 (08:21→17:02)
[2016-08-25] MEDS: metFORMIN HCL 500 MG TAB PO SCH ×2 (08:21→17:01)
[2016-08-25] MEDS: ASPIRIN 81 MG CHEWABLE TAB PO SCH (08:21)
[2016-08-25] MEDS: carBAMazepine 200 MG TAB PO SCH ×2 (08:21→21:15)
[2016-08-25] MEDS: FUROSEMIDE 40 MG/4 ML VIAL IVP SCH ×3 (08:23→21:16)
[2016-08-25] MEDS: ATORVASTATIN CALCIUM 40 MG TAB PO SCH (10:28)
--- NOTE | 2016-08-25 15:56 | PDPCPN ---
Palliative Care Progress Note Assessment/Plan: HPI: Dodie Huston (Cheva) is a 81 yo female with PMH DM 2, HTN, HLD, CHF (EF 30% on last admission), PE, CAD, and obesity admitted to the hospital for acute SOB. Found to have flash pul edema with new EKG changes and trop of 5. Known to us from previous admission 4 weeks ago when she was treated for acute CHF exacerbation and PNA. Palliative care consulted for complex medical decision making. Spoke outside of the room with 3 of her daughters. Radha and Emily were not present but expected later this afternoon. The sisters feel they would want to speak with hospice care again about setting up services at home but were awaiting Radha and Emily to return to confirm this. Spoke with case management about following up with family for home hospice services. Assessment: Physical: - Pain: chronic knee pain - tylenol PRN - Dyspnea: - oxygen as needed - a fan can also help with subjective dyspnea - recommend trying very low dose roxanol 2.5-5 mg PO Q2hr PRN for any dyspnea - constipation - at risk if using opiates - senna and colace bowel regimen Emotional/psychological: Anxiety: with panic attacks at times - treat dyspnea as above Advanced Care Planning: Is patient decisional?: Yes but defers to her daughter Code Status: DNR POA: Daughter is MDPOA Plan: She does not want any procedures and family is hoping to take her home to [place] to . At present time they are not interested in cardiac cath and only want medication management. They would like to speak with [facility]. Even if she leaves for [place], she should have hospice services follow up for support at home while here in [place]. CM notified to follow up. Subjective: doing ok Objective: Vital Signs Temp Pulse Resp BP Pulse Ox 36.8 C 67 20 141/82 H 96 08/25/16 15:00 08/25/16 15:00 08/25/16 15:00 08/25/16 15:00 08/25/16 15:00 Laboratory Results 08/25/16 01:38 08/25/16 04:00 08/24/16 08/25/16 08/26/16 05:59 05:59 05:59 Intake Total 1504 949 Output Total 170 1775 725 Balance 1334 -826 -725 PT 13.7 SEC (12.0-15.0) 08/24/16 02:14 INR 1.06 (0.83-1.16) 08/24/16 02:14 Physical Exam - Physical Exam General Appearance: alert, no apparent distress Respiratory: No respiratory distress, No accessory muscle use Skin: normal color, warm/dry Extremities: pedal edema Neuro/Psych: alert, oriented x 3 ICD10 Worksheet Patient Problems: Problems Problem Status Onset Acute exacerbation of congestive heart failure Acute Hyperglycemia Acute Hyperkalemia Acute Hypoxia Acute Respiratory distress Acute Chronic Disease Mgmt/Transitional Care Acute Hypoxia Acute Palliative care encounter Acute Pulmonary edema Acute
--- NOTE | 2016-08-25 16:51 | HOSPPROG ---
Hospitalist Progress Note Assessment/Plan: * Acute DE -cardiac cath declined - medical management -ASA, coreg -add Lipitor for high LDL * Flash pulmonary edema -IV lasix - continue * Acute on chronic systolic CHF - EF 30% * Hyperkalemia - improved -hold ACEI * Morbid obesity BMI 48 - obesity hypoventilation syndrome * Suspected IAN -needs outpatient sleep study * Acute on chronic respiratory failure * DM II -metformin * Trigeminal neuralgia -Tegretol No procedures desires. Meds and labs okay. Wishes to go home GUME. Continue IV diuresis for 1 more day inpatient Subjective: no CP/SOB Objective: Vital Signs Temp Pulse Resp BP Pulse Ox 36.8 C 67 20 141/82 H 96 08/25/16 15:00 08/25/16 15:00 08/25/16 15:00 08/25/16 15:00 08/25/16 15:00 Laboratory Results 08/25/16 01:38 08/25/16 04:00 08/24/16 08/25/16 08/26/16 05:59 05:59 05:59 Intake Total 1504 949 Output Total 170 1775 725 Balance 1334 -826 -725 PT 13.7 SEC (12.0-15.0) 08/24/16 02:14 INR 1.06 (0.83-1.16) 08/24/16 02:14 - Physical Exam Constitutional: no apparent distress, appears nourished, not in pain Cardiovascular: regular rate and rhythym, no murmur, rub, or gallop Respiratory: no respiratory distress, no rales or rhonchi, clear to auscultation Gastrointestinal: normoactive bowel sounds, soft, non-tender abdomen, no palpable masses Skin: no rashes or abrasions, no fluctuance, no induration Neurologic: AAOx3, sensation intact bilaterally Psychiatric: interacting appropriately, not anxious, not encephalopathic, thought process linear ICD10 Worksheet Patient Problems: Problems Problem Status Onset Acute exacerbation of congestive heart failure Acute Hyperglycemia Acute Hyperkalemia Acute Hypoxia Acute Respiratory distress Acute Chronic Disease Mgmt/Transitional Care Acute Hypoxia Acute Palliative care encounter Acute Pulmonary edema Acute
[2016-08-26 05:30] LABS: % IMMATURE GRANULYOCYTES 0.4 % (0.0-1.1); ABSOLUTE IMMATURE GRANULOCYTES 0.03 10^3/uL (0.00-0.10); ADD DIFF? NO; ADD MORPH? NO; ADD SCAN? NO; ATYPICAL LYMPHOCYTE FLAG 0 (0-99); FRAGMENT RBC FLAG 0 (0-99); HEMATOCRIT 31.8 % (38.0-47.0); HEMOGLOBIN 10.5 g/dL (12.6-16.3); LEFT SHIFT FLG 0 (0-99); LIPEMIA HEMOLYSIS FLAG 80 (0-99); MEAN CELL HEMOGLOBIN 32.7 pg (27.9-34.1); MEAN CELL VOLUME 99.1 fL (81.5-99.8); MEAN PLATELET VOLUME 10.3 fL (8.7-11.7); PLATELET CLUMPS FLAG 0 (0-99); PLATELET COUNT 280 10^3/uL (150-400); RED BLOOD CELL COUNT 3.21 10^6/uL (4.18-5.33)
[2016-08-26 05:52] LABS: ANION GAP 11 mEq/L (8-16); CALCIUM 9.2 mg/dL (8.5-10.4); CARBON DIOXIDE 27 mEq/l (22-31); CHLORIDE 103 mEq/L (97-110); CREATININE 1.1 mg/dL (0.6-1.0); GLOMERULAR FILTRATION RATE 48; GLUCOSE 138 mg/dL (70-100); POTASSIUM 4.5 mEq/L (3.5-5.2); SODIUM 141 mEq/L (134-144)
[2016-08-26] MEDS: HEPARIN 5,000 UNIT/0.5 ML SYR SC SCH ×2 (06:16→13:29)
[2016-08-26] MEDS: INSULIN REGULAR HUMAN 100 UNIT/ML SC SCH ×2 (08:26→13:29)
[2016-08-26] MEDS: metFORMIN HCL 500 MG TAB PO SCH (08:56)
[2016-08-26] MEDS: CARVEDILOL 3.125 MG TAB PO SCH (08:56)
[2016-08-26] MEDS: ASPIRIN 81 MG CHEWABLE TAB PO SCH (08:58)
[2016-08-26] MEDS: ATORVASTATIN CALCIUM 40 MG TAB PO SCH (08:58)
[2016-08-26] MEDS: carBAMazepine 200 MG TAB PO SCH (08:58)
[2016-08-26] MEDS: FUROSEMIDE 40 MG/4 ML VIAL IVP SCH ×2 (08:59→16:29)
--- NOTE | 2016-08-26 11:45 | PDIAF ---
- Diagnosis Diagnosis: acute SC, CHF exacerbation Code Status: Do Not Resuscitate - Medication Management Discharge Medications: Medications to Continue on Transfer Ranitidine HCl [Zantac] 150 mg PO DAILY PRN 07/06/16 [Last Taken Unknown] Vitamin B Complex [B Complex] 1 each PO DAILY 07/06/16 [Last Taken Unknown] Carvedilol [Coreg (*)] 3.125 mg PO BIDMEAL #60 tab 07/19/16 [Last Taken Unknown] carBAMazepine [Tegretol] 200 mg PO BID #60 tab 07/19/16 [Last Taken Unknown] Aspirin [Aspirin 81mg (*)] 81 mg PO DAILY 08/24/16 [Last Taken Unknown] Furosemide [Lasix 40 MG (*)] 40 mg PO BID@08,14 08/24/16 [Last Taken Unknown] metFORMIN HCL [Glucophage 500 mg (*)] 500 mg PO BIDMEAL 08/24/16 [Last Taken Unknown] Atorvastatin Calcium [Lipitor 40 mg (*)] 40 mg PO DAILY #30 tab 08/26/16 [Last Taken Unknown] Discharge Medications: Refer to the Discharge Home Medication list for PRN reason. - Orders Services needed: Home Care, Registered Nurse, Physical Therapy, Occupational Therapy Home Care Face to Face: I certify that this patient was under my care and that I had the required [id number] encounter meeting the encounter requirements on the discharge day. My findings support the fact that the patient is homebound as defined in CMS Chapter 7 Medicare Benefits Manual 30.1.1, The condition of the patient is such that there exists a normal inability to leave home and consequently, leaving home would require a considerable and taxing effort. Diet Recommendation: sodium restricted Weigh Patient: daily - Follow Up Care Current Providers and Referrals: Patient,NotPresent [Primary Care Provider] - As per Instructions
[2016-08-26] MEDS ORDERED: ISOSORBIDE MONONITRATE 30 MG TAB.SR PO SCH (12:00)
[2016-08-26] MEDS ORDERED: hydrALAZINE 10 MG TAB PO SCH (16:00)
[2016-08-26 17:06] VITALS: BP 96/62; PULSE 76; RESP 12; TEMP 97.9; O2SAT 93
--- NOTE | 2016-08-26 18:16 | GDS ---
[f rep st] DISCHARGE SUMMARY DISCHARGE DIAGNOSES: 1. Acute myocardial infarction, non-ST elevation. 2. Flash pulmonary edema. 3. Acute respiratory failure. 4. Acute on chronic systolic congestive heart failure. Ejection fraction 30%. 5. Hyperkalemia. 6. Morbid obesity. Body mass index 48. 7. Obesity hypoventilation syndrome, with suspected obstructive sleep apnea. 8. Chronic respiratory failure. 9. Diabetes, type 2. 10. Trigeminal neuralgia. HISTORY: The patient is an 81-year-old female, who was recently hospitalized here and found to have an EF of only 30%. We attempted a cardiac evaluation, including stress testing to rule out ischemi a, but the patient and her family adamantly declined any invasive testing. Palliative Care was cons ulted, and initially they did desire hospice; however, at the last minute, decided not to do hospice , and went home with Home Health. They still believe she is at the end of her life, and the plan is to drive her to [place] to [place] from so she [place] there. She was doing r elatively well at home until the day of admission, she presented with acute onset of shortness of br eath. She was found to have flash pulmonary edema, and her troponin did bump significantly. It was felt her acute NM was the cause of her flash pulmonary edema. Cardiology was consulted. Palliativ e Care was again consulted, as well as Cardiology. After extensive discussion, the decision was mad e to not do cardiac catheterization, and the patient continued to refuse any aggressive intervention s. Cardiology recommended medical management and signed off. She is on aspirin and Coreg. I did a dd Lipitor for her high LDL just for short-term stability in attempt to get her to [place], at which point, full comfort measures can be instituted. They plan to drive her to [place] in the near future . She was diuresed with IV Lasix, and respiratory status did improve. She is on home oxygen, which she will continue. We tried to attempt arrangements for oxygen to drive to [place]; however, on a eekend, this could not be arranged at this time. This can continue to be pursued in the upcoming we ek regarding oxygen arrangements to fulfill their goals. This should be arranged through her primar care doctor and usual oxygen company. She is otherwise medically stable for discharge from the [facility] today on medical management. She is chest pain-free, and without any respiratory distress. As she was hyperkalemic on admission, and so we have discontinued her AKIRA inhibitor. Her blood pres sure has risen significantly, so, instead, I will prescribe hydralazine and nitrates. Again, the sh ort-term goal is to keep her out of CHF and without further myocardial ischemia until she can return to [place], and therefore continue with medical management for the short term. She is clearly a poor baseline respiratory status. She is obese, with a BMI of 48, and breathes poo rly during the day and at night. Outpatient sleep study is not consistent with their long-term goal s. We will continue oxygen upon discharge. DISCHARGE MEDICATIONS: Please see computerized record for full detailed list. New medications: 1. Imdur 30 mg p.o. daily. 2. Hydralazine 10 mg p.o. three times daily. 3. Lipitor 40 mg p.o. daily. Discontinued medications: Lisinopril 2.5 mg p.o. daily. She will continue on her: 1. Aspirin 81 mg p.o. daily. 2. Lasix 40 mg p.o. twice daily, as she was prior to admission. ADDITIONAL DISCHARGE INSTRUCTIONS: Work with primary care provider and oxygen company to arrange claude that may travel to [place] with her. Greater than 30 minutes' time was spent arranging this discharge. Patient is seen and examined by candy arceo on the day of discharge. /[id number]/MODL
== END 2016-08-26 17:08 | disposition home health service (06) | DRG 280 ==
LOC: EDUNIT# → F2N 04:01 → F2W 16:22
PROVIDERS: ADMIT Hospitalist; ATTEND Internal Medicine
DX: I21.4 Non-ST elevation (NSTEMI) myocardial infarction (principal); I25.10 Atherosclerotic heart disease of native coronary artery without angina pectoris; I11.0 Hypertensive heart disease with heart failure; J96.21 Acute and chronic respiratory failure with hypoxia; J96.20 Acute and chronic respiratory failure, unspecified whether with hypoxia or hypercapnia; E87.5 Hyperkalemia; E11.65 Type 2 diabetes mellitus with hyperglycemia; G50.0 Trigeminal neuralgia; Z51.5 Encounter for palliative care; E66.2 Morbid (severe) obesity with alveolar hypoventilation; Z68.42 Body mass index [BMI] 45.0-49.9, adult
CPT/HCPCS: 82947-QW; 96365; J0610; J1815; J1940